=== PATIENT | female | born 1970 ===

== ENCOUNTER 2019-12-21 16:31 | Outpatient (REF) | payer OTHER, SELFPAY | END 2019-12-21 16:32 | disposition home or self-care (01) | LOC: HO.LAB 16:31 | PROVIDERS: Visit Provider Internal Medicine | DX: Z20.828 Contact with and (suspected) exposure to other viral communicable diseases (principal) | CPT/HCPCS: U0003 ==

== ENCOUNTER 2020-01-04 06:55 | Outpatient (REF) | payer OTHER, SELFPAY | END 2020-01-04 06:56 | disposition home or self-care (01) | LOC: HO.LAB 06:55 | PROVIDERS: Visit Provider Internal Medicine | DX: Z20.828 Contact with and (suspected) exposure to other viral communicable diseases (principal) | CPT/HCPCS: C9803; U0003 ==

== ENCOUNTER 2020-01-16 09:13 | Outpatient (REF) | payer OTHER, SELFPAY | END 2020-01-16 09:14 | disposition home or self-care (01) | LOC: HO.LAB 09:13 | PROVIDERS: Visit Provider Internal Medicine | DX: Z20.828 Contact with and (suspected) exposure to other viral communicable diseases (principal) | CPT/HCPCS: C9803; U0003 ==

== ENCOUNTER 2020-02-06 10:03 | Outpatient (REF) | payer OTHER, SELFPAY ==
--- NOTE | 2020-02-06 10:09 | MM_ITS ---
EXAMINATION: MM SCREENING DIGITAL BREAST TOMOSYNTHESIS, BILATERAL CLINICAL INFORMATION: Screening. Asymptomatic. The lifetime risk of breast cancer based on the Tyrer-Cuzick Model is 18%. COMPARISON: Mammography: 01/31/2019, 12/18/2017, 12/17/2016 TECHNIQUE: Digital breast tomosynthesis is performed in both the craniocaudal and mediolateral oblique views along with computer-aided detection (CAD). Synthesized 2D images are generated from the tomosynthesis. FINDINGS: The breasts are heterogeneously dense, which may obscure small masses (ACR BI-RADS breast composition Category c). There is no developing density or interval mass or architectural abnormality. Parenchymal pattern is similar to prior studies. The axilla and skin contours are unremarkable. No abnormal right breast calcifications. There are increased calcifications posterior outer left breast, likely scattered on the MLO view without focal grouping. Patient will be recalled for additional magnification views left breast to fully characterize. MM/MM tomosynthesis screening BI IMPRESSION: 1. Left: Increased calcifications posterior outer breast, likely scattered on MLO view. 2. Right: No mammographic evidence of malignancy. ASSESSMENT: BI-RADS 0: Incomplete - Need Additional Imaging Evaluation RECOMMENDATION: 1. Additional views of the left breast (magnification posterior outer CC, magnification ML upper and lower). 2. Radiology department staff will contact the patient for additional imaging. This patient's information was entered into a reminder system with a target due date for their next mammogram.
== END 2020-02-06 10:04 | disposition home or self-care (01) ==
LOC: HO.MAMMO 10:03
PROVIDERS: PCP Internal Medicine; Visit Provider Internal Medicine
DX: Z12.31 Encounter for screening mammogram for malignant neoplasm of breast (principal)
CPT/HCPCS: 77063; 77067

== ENCOUNTER 2020-02-26 14:48 | Outpatient (REF) | payer OTHER, SELFPAY ==
--- NOTE | 2020-02-26 14:53 | MM_ITS ---
EXAMINATION: MM DIAGNOSTIC DIGITAL MAMMOGRAPHY, LEFT CLINICAL INFORMATION: Recall from screening for increased calcifications posterior outer left breast possibly scattered on MLO view. TC score 18%. COMPARISON: Mammography: 02/06/2020, 01/31/2019, 12/18/2017 (diagnostic), 12/17/2016 (diagnostic). TECHNIQUE: Digital mammography is performed in the following views: Magnification CC, magnification ML x2, magnification MLO. FINDINGS: The breasts are heterogeneously dense, which may obscure small masses (ACR BI-RADS breast composition Category c). Additional magnification views show some scattered round calcifications upper outer left breast. There are a additional calcifications on current study compared with prior diagnostic exam 2017 and 2016. These are round and grouped on CC view and less in number somewhat scattered on lateral views. Calcifications are considered probably benign and will be reassessed again in 6 months to include magnification views. Results are discussed with the patient at time of visit. MM/MM added views LT IMPRESSION: Probable benign calcifications posterior upper outer left breast. ASSESSMENT: BI-RADS 3: Probably Benign RECOMMENDATION: Diagnostic left mammography in 6 months. This patient's information was entered into a reminder system with a target due date for their next mammogram.
== END 2020-02-26 14:49 | disposition home or self-care (01) ==
LOC: HO.MAMMO 14:48
PROVIDERS: PCP Internal Medicine; Visit Provider Internal Medicine
DX: R92.1 Mammographic calcification found on diagnostic imaging of breast (principal)
CPT/HCPCS: 77065

== ENCOUNTER 2020-08-26 13:51 | Outpatient (REF) | payer OTHER, SELFPAY ==
--- NOTE | ~2020-08-26 | MM_ITS ---
EXAMINATION: MM DIAGNOSTIC DIGITAL BREAST TOMOSYNTHESIS, LEFT TARGETED LEFT BREAST ULTRASOUND CLINICAL INFORMATION: Six-month follow-up left breast calcifications. The lifetime risk of breast cancer based on the Tyrer-Cuzick Model is 17.9%. COMPARISON: Mammography: 02/26/2020 and studies dating back to 10/12/2013. TECHNIQUE: Digital breast tomosynthesis is performed in both the craniocaudal and mediolateral oblique views along with computer-aided detection (CAD). Synthesized 2D images are generated from the tomosynthesis. Additional spot magnification views of the left breast in craniocaudal and 90 degree mediolateral views performed. Targeted left breast ultrasound upper outer aspect. FINDINGS: The breasts are heterogeneously dense, which may obscure small masses (ACR BI-RADS breast composition Category c). The few grouping of calcifications within the upper outer aspect of the left breast appear stable with study of 02/26/2020. Within the upper outer aspect of the left breast approximately 11 cm from the nipple there is a partially circumscribed lobular density with a few calcifications measuring 1.1 x 1.5 cm in size which I cannot say has been present before study of 02/26/2020. Targeted left breast ultrasound to the upper outer aspect demonstrated a hypoechoic partially circumscribed lesion with increased through sound transmission in most areas but with question small region of shadowing which may be related to interface or some associated soft tissue density. There are septations seen within this structure and question small amount of soft tissue density. No internal vascularity was identified. The lesion measures approximately 1.1 x 0.8 x 0.7 cm in size and on some images has a triangular appearance. Attempt at ultrasound-guided aspiration is recommended and if the lesion does not totally aspirate, would perform core biopsy at that time. Results are discussed with the patient at time of visit. [facility] patient navigator will call referring provider's office with the above recommendation. MM/MM tomosynthesis diagnostic LT IMPRESSION: Left breast partially cystic lesion as described for which attempt at ultrasound-guided aspiration is recommended and if it does not totally aspirate, then biopsy could be performed at that time. ASSESSMENT: BI-RADS 4: Suspicious (subcategory 4A: Low suspicion for malignancy) RECOMMENDATION: Ultrasound-guided aspiration/biopsy left breast.
--- NOTE | ~2020-08-26 | US_ITS ---
EXAMINATION: US DIAGNOSTIC ULTRASOUND BREAST, LEFT CLINICAL INFORMATION: Left breast density. COMPARISON: Mammography of same day and studies dating back to October 12, 2013. TECHNIQUE: Ultrasound of the breast is performed with real-time leon scale imaging and color Doppler. FINDINGS: Targeted left breast ultrasound to the upper outer aspect demonstrated a hypoechoic partially circumscribed lesion with increased through sound transmission in most areas but with question small region of shadowing which may be related to interface or some associated soft tissue density. There are septations seen within this structure and question small amount of soft tissue density. No internal vascularity was identified. The lesion measures approximately 1.1 x 0.8 x 0.7 cm in size and on some images has a triangular appearance. Attempt at ultrasound guided aspiration is recommended and if the lesion does not totally aspirate would perform core biopsy at that time. Results are discussed with the patient at time of visit. [facility] patient navigator will call referring provider's office with the above recommendation. US/US breast LT limited IMPRESSION: Left breast partially cystic lesion as described for which attempt at ultrasound-guided aspiration is recommended and if it does not totally aspirate then biopsy could be performed at that time. ASSESSMENT: BI-RADS 4: Suspicious (subcategory 4A: Low suspicion for malignancy) RECOMMENDATION: Ultrasound-guided aspiration/biopsy left breast
== END 2020-08-26 13:52 | disposition home or self-care (01) ==
LOC: HO.MAMMO 13:51
PROVIDERS: Visit Provider Internal Medicine
DX: R92.1 Mammographic calcification found on diagnostic imaging of breast (principal)
CPT/HCPCS: 76642; 77061; 77065

== ENCOUNTER 2020-09-20 09:45 | Outpatient (REF) | payer OTHER, SELFPAY ==
--- NOTE | ~2020-09-20 | US_ITS ---
EXAMINATION: US ULTRASOUND-GUIDED CYST ASPIRATION BREAST, LEFT CLINICAL INFORMATION: Probable cyst upper outer left breast on recent ultrasound. Request confirmation with aspiration. If lesion will not aspirate, then core biopsy. Recent mammography performed for follow-up of probable benign calcifications upper outer left breast. TC score 18%. COMPARISON: Targeted left breast ultrasound 08/26/2020. Mammography 08/26/2020, 08/25/2020, 02/06/2020 (BI-RADS 0), 01/31/2019, 12/18/2017, 12/17/2016. FINDINGS: Proper informed consent is obtained from the patient after discussion of the procedure, potential risks and complications, and alternatives. Patient was given an opportunity for questions. The patient appeared to understand. The patient consented to the procedure and signed the consent form. LOCATION: 2:00 position 9 cm from nipple GUIDANCE: Ultrasound-guided; aseptic technique. LESION: Cyst with fine avascular internal septation 1.1 cm. APPROACH: Oblique caudal cranial ANESTHESIA: 6 mL 1% lidocaine NEEDLE: 21-gauge straight needle. ASPIRATION: The cyst rapidly resolved on puncture. No residual solid component. Results and management plans discussed with patient following procedure. Patient has diagnostic mammography due in 6 months at time of annual mammography to include magnification views of the probable benign left breast calcifications. US/US breast cyst asp LT IMPRESSION: -Simple cyst upper outer left breast resolved on puncture. -Note: There are probably benign calcifications left breast which will be reassessed at time of annual exam, due in 6 months. These are responsible for the BI-RADS 3 assessment below. ASSESSMENT: BI-RADS 3: Probably Benign RECOMMENDATION: Magnification views left breast at time of annual bilateral mammography, due in 6 months. This patient's information was entered into a reminder system with a target due date for their next mammogram.
== END 2020-09-20 09:46 | disposition home or self-care (01) ==
LOC: HO.MAMMO 09:45
PROVIDERS: Visit Provider Surgery
DX: R92.8 Other abnormal and inconclusive findings on diagnostic imaging of breast (principal); N63.20 Unspecified lump in the left breast, unspecified quadrant
CPT/HCPCS: 19000; 19083; 99202

== ENCOUNTER → 2020-09-23 09:32 | Outpatient (BNVA) | payer OTHER, SELFPAY | PROVIDERS: PCP Internal Medicine; Referring Provider Internal Medicine; Visit Provider Surgery | DX: N63.20 Unspecified lump in the left breast, unspecified quadrant (principal) | CPT/HCPCS: 99212 ==

== ENCOUNTER 2020-10-03 10:28 | Outpatient (REF) | payer OTHER, SELFPAY ==
--- NOTE | ~2020-10-03 | US_ITS ---
EXAMINATION: US RETROPERITONEAL LIMITED (RENAL ONLY) CLINICAL INFORMATION: Calculus kidney. COMPARISON: Ultrasound renals only 08/31/2019 and 08/26/2018. CT abdomen pelvis 09/30/2015. X-ray KUB 12/23/2013. TECHNIQUE: Real-time imaging of the kidneys. FINDINGS: RIGHT KIDNEY: 10.9 x 4.2 x 6.1 cm (SAG x AP x TRV). The kidney is normal in size, contour, and echogenicity. Renal cortical thickness is normal. No calculi or focal parenchymal lesions. No hydronephrosis. LEFT KIDNEY: 11.5 x 5.4 x 4.9 cm (SAG x AP x TRV). The kidney is normal in size, contour, and echogenicity. Renal cortical thickness is normal. No focal parenchymal lesions. Mild left-sided hydronephrosis, new when compared to the prior examination. Left lower pole renal stone measuring 0.4 cm, similar when compared to the prior examination. US/US renal BI IMPRESSION: Mild left-sided hydronephrosis, new when compared to the prior examination. Redemonstration of a left lower pole 0.4 cm renal stone. No right-sided hydronephrosis or nephrolithiasis.
== END 2020-10-03 10:29 | disposition home or self-care (01) ==
LOC: HO.US 10:28
PROVIDERS: Visit Provider Urology
DX: N20.0 Calculus of kidney (principal)
CPT/HCPCS: 76775

== ENCOUNTER → 2020-10-26 13:17 | Outpatient (BNVA) | payer OTHER, SELFPAY | PROVIDERS: PCP Internal Medicine; Referring Provider Internal Medicine; Visit Provider Nurse Practitioner Family | DX: K21.9 Gastro-esophageal reflux disease without esophagitis (principal); E55.9 Vitamin D deficiency, unspecified; F41.8 Other specified anxiety disorders; Z80.0 Family history of malignant neoplasm of digestive organs; J30.2 Other seasonal allergic rhinitis | CPT/HCPCS: 99202 ==

== ENCOUNTER 2020-10-27 10:37 | Outpatient (REF) | payer OTHER, SELFPAY ==
[2020-10-27 11:17] LABS: Hematocrit 33.7 % (37-47); Hemoglobin 11.1 g/dl (12.0-16.0); Mean Corpuscular HGB Conc 32.9 g/dl (31.0-35.0); Mean Corpuscular Hemoglobin 30.2 pg (27.0-33.0); Mean Corpuscular Volume 91.6 fL (80-98); Mean Platelet Volume 9.3 fL (9.4-12.3); Platelet Count 254 X10*3/uL (160-400); Red Blood Count 3.68 X10*6/uL (4.20-5.50); Red Cell Distribution Width 13.2 % (11.0-16.0); White Blood Count 5.6 X10*3/uL (4.8-10.8)
[2020-10-27 11:55] LABS: Alanine Aminotransferase 19 U/L (0-31); Alkaline Phosphatase 84 U/L (39-117); Anion Gap 11 (12-20); Aspartate Amino Transferase 20 U/L (5-31); Bilirubin Total 0.6 mg/dL (0.0-1.0); Blood Urea Nitrogen 13 mg/dL (9-16); Calcium 9.4 mg/dL (8.4-10.2); Carbon Dioxide 25 mmol/L (22-29); Chloride 108 mmol/L (96-108); Estimated Glomerular Filt Rate > 60; Glucose Random 93 mg/dL (60-115); Potassium 4.6 mmol/L (3.3-5.1); Sodium 139 mmol/L (135-145); Total Protein 6.9 g/dL (6.5-8.0)
== END 2020-10-27 10:38 | disposition home or self-care (01) ==
LOC: HO.LAB 10:37
PROVIDERS: PCP Internal Medicine; Visit Provider Nurse Practitioner Family
DX: Z12.11 Encounter for screening for malignant neoplasm of colon (principal)
CPT/HCPCS: 36415; 80053; 85027

== ENCOUNTER → 2020-12-02 11:24 | Outpatient (BNVA) | payer OTHER, SELFPAY | DX: N20.0 Calculus of kidney (principal) | CPT/HCPCS: 99212 ==

== ENCOUNTER 2021-01-17 10:13 | Day surgery (SDC) | payer OTHER, SELFPAY ==
[2020-11-23 12:04] VITALS: BMI 32.8
[2021-01-10 12:33] VITALS: BMI 32.8
--- NOTE | 2021-01-16 13:51 | HO.ANESPROP2 ---
Documented by User: Rocio Aguilar NP 01/16/21 13:58 HPI - Anesthesia Eval Consult details Narrative: 50yo F for Colonoscopy PMFSH Active Problems Active Problems: All Active Problems (Updated 11/21/20 @ 12:38 by Kelsi Perdomo MD) CHASE (generalized anxiety disorder) (Acute) Mild recurrent major depression (Acute) Abnormal ultrasound of breast (Acute) Nephrolithiasis (Acute) Left breast mass (Acute) Family history of colon cancer (Acute) Seasonal allergic rhinitis due to pollen (Acute) Hypovitaminosis D (Acute) GERD (gastroesophageal reflux disease) (Acute) Past Medical History Medical History Depression with anxiety Family history of colon cancer CHASE (generalized anxiety disorder) GERD (gastroesophageal reflux disease) Hypovitaminosis D Left breast mass Mild recurrent major depression Seasonal allergic rhinitis due to pollen Family History Family History Father Hypercholesteremia Mother Hypertension Maternal Grandmother Hypertension CAD (coronary artery disease) Maternal Grandfather No problems noted. Maternal Aunt Breast cancer Diabetes Son No problems noted. Paternal Grandfather No problems noted. Paternal Grandmother No problems noted. Surgical History Surgical History H/O cervical polypectomy H/O lithotripsy History of esophagogastroduodenoscopy (EGD) Social History Social History Housing: Apartment Alcohol intake: never Patient Tobacco Use Status: Never used Tobacco e-Cigarette/Vaping Use: Never Used Second Hand Smoke Exposure: No Use of substances other than those prescribed or required for medical reasons: No Are you DNR?: No Advance Directives: No Advance Directives Information Provided: Yes Patient : No (UCG pending) service: No Current occupational status: unemployed Current occupational exposures/hazards: No Meds Allergies Allergy/AdvReac Type Severity Reaction Status Date / Time No Known Allergies Allergy Verified 12/02/20 12:02 [No Known Allergies*] Home Medications Medication Instructions Recorded Confirmed Last Taken Type ergocalciferol (vitamin D2) 1,250 1,250 mcg PO QWEEK 11/17/19 12/02/20 Unknown History mcg (50,000 unit) capsule fluticasone propionate 50 1 spray INTRANASAL DAILY 11/17/19 12/02/20 Unknown History mcg/actuation nasal spray,suspension (Flonase Allergy Relief) Exam Exam Date and Time: January 16, 2021 1351 Height,Weight and Vital Signs: Height 5 ft 4 in Weight 86.636 kg Pertinent Lab Results Pertinent Lab Results: Laboratory Tests 10/27/20 10/27/20 10:50 10:50 WBC 5.6 Hgb 11.1 L Hct 33.7 L Plt Count 254 Sodium 139 Potassium 4.6 Chloride 108 Carbon Dioxide 25 BUN 13 Creatinine 0.64 Assessment and Plan Assessment Anesthesia Assessment: Chart Reviewed Documented by User: Maria Cavazos MD 01/17/21 11:57 [facility] Past Medical History Medical History Depression with anxiety Family history of colon cancer CHASE (generalized anxiety disorder) GERD (gastroesophageal reflux disease) Hypovitaminosis D Left breast mass Mild recurrent major depression Seasonal allergic rhinitis due to pollen Family History Family History Father Hypercholesteremia Mother Hypertension Maternal Grandmother Hypertension CAD (coronary artery disease) Maternal Grandfather No problems noted. Maternal Aunt Breast cancer Diabetes Son No problems noted. Paternal Grandfather No problems noted. Paternal Grandmother No problems noted. Family history of problems with anesthesia: No Surgical History Surgical History H/O cervical polypectomy H/O lithotripsy History of esophagogastroduodenoscopy (EGD) History of Problems with Anesthesia: No Social History Social History Housing: Apartment Alcohol intake: never Patient Tobacco Use Status: Never used Tobacco e-Cigarette/Vaping Use: Never Used Second Hand Smoke Exposure: No Use of substances other than those prescribed or required for medical reasons: No Are you DNR?: No Advance Directives: No Advance Directives Information Provided: Yes Patient : No (UCG pending) service: No Current occupational status: unemployed Current occupational exposures/hazards: No Meds Allergies Allergy/AdvReac Type Severity Reaction Status Date / Time No Known Allergies Allergy Verified 12/02/20 12:02 [No Known Allergies*] Home Medications Medication Instructions Recorded Confirmed Last Taken Type ergocalciferol (vitamin D2) 1,250 1,250 mcg PO QWEEK 11/17/19 12/02/20 Unknown History mcg (50,000 unit) capsule fluticasone propionate 50 1 spray INTRANASAL DAILY 11/17/19 12/02/20 Unknown History mcg/actuation nasal spray,suspension (Flonase Allergy Relief) Exam Height,Weight and Vital Signs: Height 5 ft 4 in Weight 86.636 kg Vital Signs Temp Pulse Resp BP Pulse Ox 01/17/21 10:49 97.2 F 72 16 112/65 99 Pertinent Lab Results Pertinent Lab Results: Laboratory Tests 10/27/20 10/27/20 10:50 10:50 WBC 5.6 Hgb 11.1 L Hct 33.7 L Plt Count 254 Sodium 139 Potassium 4.6 Chloride 108 Carbon Dioxide 25 BUN 13 Creatinine 0.64 Lab Results 01/17/21 Range/Units 10:25 Urine Test NEGATIVE (NEGATIVE) Airway Mallampati Class: II TM Dist: >3cm Neck ROM: Full Loose/Missing/Broken Teeth: No Heart: RRR Lungs: CTAB Assessment and Plan Assessment Anesthesia Assessment: Anesthesia Plan Discussed Final Anesthetic Review Family History of Problems with Anesthesia: No History of Problems with Anesthesia: No NPO: Yes ASA Class: II Final Preanesthetic Review: No Changes in Pt Med Stat, Meds/Allgs Chart Reviewed, Consent Obtained/Reviewed and Anes Risks/Benef Reviewed Patient Risk: Low Procedure Risk: Low Assessment/Block/Sedation in SS: Assess/Block/Sedation-SS Anesthetic Plan Anesthetic Plan: MAC: Disposition: Standard PACU
[2021-01-17 10:44] LABS: UPreg QC Valid YES; Urine Pregnancy NEGATIVE (NEGATIVE)
[2021-01-17 10:49] VITALS: BP 112/65; PULSE 72; RESP 16; TEMP 36.2; O2SAT 99; BMI 30.9
--- NOTE | 2021-01-17 11:55 | MHC.SHP ---
Pre-Procedural Eval Section A Date of Service: 01/17/21 The patient is an INPATIENT: No The History & Physical has been completed within 30 days and I have reviewed it.: No Section B Chief Complaint: Screening Details of Present Illness: Colon cancer screening family history of colon cancer Relevant Family History (Specify if Yes): Yes Relevant Social History: None Present Medications: see Short Stay Collaborative assessment Medical History: Significant History (Depression with anxiety Family history of colon cancer GERD (gastroesophageal reflux disease) Hypovitaminosis D Left breast mass Seasonal allergic rhinitis due to pollen) History of Previous Operations: Relevant previous surgery/procedure and date(s) (H/O cervical polypectomy H/O lithotripsy History of esophagogastroduodenoscopy (EGD)) Allergies: Allergies Allergy/AdvReac Type Severity Reaction Status Date / Time No Known Allergies Allergy Verified 12/02/20 12:02 [No Known Allergies*] Review of Systems Sugical H&P ROS: Negative: Constitution, Cardiovascular, Respiratory and Gastrointestinal Exam Surgical H&P Exam: Normal: Heart, Normal: Lungs, Normal: Extremities and Normal: Abdomen Plan Diagnosis/Plan: Unchanged I have reviewed the history and physical and performed a pertinent physical examination on my patient. No changes have occurred unless specified.
--- NOTE | 2021-01-17 12:41 | PM.OP ---
Brief Operative Note Date of Service: 01/17/21 Pre-op diagnosis: Colon cancer screening, family history of colon cancer (brother at age 41) Post-op diagnosis: other (Colon polyp, diverticulosis) Procedure: COLONOSCOPY TILL CECUM WITH SNARE POLYPECTOMY Consent: Indications for the procedure and potential complications of bleeding, perforation, reaction to medications and missed diagnosis were discussed with the patient and informed consent was obtained. Instrument: Olympus PCF H 190 L variable stiffness pediatric colonoscope Monitoring: Vital signs and clinical assessment, intermittent blood pressure monitoring, continuous EKG monitoring, Pulse oximetry and Carbon Dioxide monitoring were done throughout the procedure. Colon withdrawl time was 16 minutes. Procedure: The patient was placed in the left lateral decubitis position and pre-procedure medications were administered. After a digital rectal examination of the ano-rectum, the video colonoscope was inserted into the rectum and advanced through the colon to the cecum. The colonoscope was slowly withdrawn in a retrograde panoramic fashion and the colon mucosa was carefully examined including a retroflexed view of the rectum. Findings and interventions are described below. Procedure Difficulty: Without difficulty Findings: Terminal Ileum: Not evaluated Cecum: Normal Ascending Colon: Normal Transverse Colon: Normal Descending Colon: Normal Sigmoid Colon: A 10-12 mm sessile polyp removed with a cold snare. Moderate diverticulosis Rectum: Normal Ano-rectum: Normal Colon preparation: Good in the transverse and left colon and fair in the cecum and proximal AC with undigested vegetable matter which could not be suctioned. Impression and Post Procedure Diagnosis: Colonoscopy Findings: One moderate polyp removed Moderate diverticulosis seen in the sigmoid colon Plan: Await pathology results Patient has an appointment on 01/30/21 in the [facility] with Nasima Michel FNP-BC . Repeat Colonoscopy interval based on path results - in 3 years if polyps are adenomatous and due to fair prep in the right colon. Colon polyps and diverticulosis handouts were given in the discharge area Surgeon: Nadia Eduardo MD Anesthesia: MAC (Milagros Brenner CRNA) Was an Clinical Scientist used for this Procedure?: Yes Clinical Scientist: Lady Waters Estimated blood loss (mL): 0 Pathology: other ( A. sigmoid polyp) Condition: stable Disposition: PACU
[2021-01-17 12:45] VITALS: BP 88/49; PULSE 73; RESP 16; TEMP 36.7; O2SAT 98
--- NOTE | 2021-01-17 12:45 | P.OP_ITS ---
Operative Note Operative Note Date of Service: 01/17/21 Narrative: Pre-op diagnosis:?Colon cancer screening, family history of colon cancer (brother at age 41) Post-op diagnosis:?other (Colon polyp, diverticulosis) Procedure:? COLONOSCOPY TILL CECUM WITH SNARE POLYPECTOMY Consent: Indications for the procedure and potential complications of bleeding, perforation, reaction to medications and missed diagnosis were discussed with the patient and informed consent was obtained. Instrument: Olympus PCF H 190 L variable stiffness pediatric colonoscope Monitoring: Vital signs and clinical assessment, intermittent blood pressure monitoring, continuous EKG monitoring, Pulse oximetry and Carbon Dioxide monitoring were done throughout the procedure. Colon withdrawl time was 16 minutes. Procedure: The patient was placed in the left lateral decubitis position and pre-procedure medications were administered. After a digital rectal examination of the ano-rectum, the video colonoscope was inserted into the rectum and advanced through the colon to the cecum. The colonoscope was slowly withdrawn in a retrograde panoramic fashion and the colon mucosa was carefully examined including a retroflexed view of the rectum. Findings and interventions are described below. Procedure Difficulty: Without difficulty Findings: Terminal Ileum: Not evaluated Cecum:? Normal Ascending Colon:? Normal Transverse Colon:? Normal Descending Colon:? Normal Sigmoid Colon:? A 10-12 mm sessile polyp removed with a cold snare. Moderate diverticulosis Rectum:? Normal Ano-rectum:? Normal Colon preparation:? Good in the transverse and left colon and fair in the cecum and proximal AC with undigested vegetable matter which could not be suctioned. Impression and Post Procedure Diagnosis: Colonoscopy Findings: One moderate polyp removed Moderate diverticulosis seen in the sigmoid colon Plan: Await pathology results Patient has an appointment on 01/30/21 in the GI Clinic with ? Nasima Michel FNP-MYLA . Repeat Colonoscopy interval based on path results - in 3 years if polyps are adenomatous and due to fair prep in the right colon. Colon polyps and diverticulosis handouts were given in the discharge area Surgeon:?Nadia Eduardo MD Anesthesia:?MAC (Milagros Brenner CRNA) Was an Boilermaker Loftsman used for this Procedure?:?Yes Boilermaker Loftsman:?Lady Waters Estimated blood loss (mL):?0 Pathology:?other ( A. sigmoid polyp) Condition:?stable Disposition:?PACU
[2021-01-17 12:50] VITALS: BP 96/59; PULSE 65; RESP 16; O2SAT 98
[2021-01-17 13:00] VITALS: BP 93/69; PULSE 59; RESP 16; O2SAT 99
[2021-01-17 13:13] VITALS: BP 107/70; PULSE 79; RESP 16; TEMP 36.1; O2SAT 99
== END 2021-01-17 13:48 | disposition home or self-care (01) ==
PROVIDERS: Nurse Practitioner; PCP Internal Medicine; Visit Provider Internal Medicine Gastroenterology
PROC: 0DJD8ZZ Inspection of Lower Intestinal Tract, Via Natural or Artificial Opening Endoscopic (ICD-10-PCS; CPT 45378; principal; 2021-01-17 11:40)
DX: Z12.11 Encounter for screening for malignant neoplasm of colon (principal); Z80.0 Family history of malignant neoplasm of digestive organs; D12.5 Benign neoplasm of sigmoid colon; K57.30 Diverticulosis of large intestine without perforation or abscess without bleeding; K21.9 Gastro-esophageal reflux disease without esophagitis; J30.2 Other seasonal allergic rhinitis; E55.9 Vitamin D deficiency, unspecified; Z79.51 Long term (current) use of inhaled steroids; Z79.899 Other long term (current) drug therapy
CPT/HCPCS: 45385; 81025; 88305

== ENCOUNTER → 2021-01-30 09:23 | Outpatient (BNVA) | payer OTHER, SELFPAY | PROVIDERS: Referring Provider Internal Medicine; Visit Provider Nurse Practitioner Family | DX: K21.9 Gastro-esophageal reflux disease without esophagitis (principal); K57.90 Diverticulosis of intestine, part unspecified, without perforation or abscess without bleeding; D36.9 Benign neoplasm, unspecified site; Z98.890 Other specified postprocedural states | CPT/HCPCS: 99212 ==

== ENCOUNTER 2021-03-24 10:30 | Outpatient (REF) | payer OTHER, SELFPAY ==
--- NOTE | ~2021-03-24 | MM_ITS ---
EXAMINATION: MM DIAGNOSTIC DIGITAL BREAST TOMOSYNTHESIS, BILATERAL CLINICAL INFORMATION: Screening right study with follow-up of left breast calcifications. The lifetime risk of breast cancer based on the Tyrer-Cuzick Model is 8.3%. COMPARISON: Mammography: September 20, 2020 and studies dating back to November 15, 2015 TECHNIQUE: Digital breast tomosynthesis is performed in both the craniocaudal and mediolateral oblique views along with computer-aided detection (CAD). Synthesized 2D images are generated from the tomosynthesis. Spot magnification views of the left breast in craniocaudal and 90 degree mediolateral views performed. FINDINGS: The breasts are heterogeneously dense, which may obscure small masses (ACR BI-RADS breast composition Category c). There is a stable parenchymal pattern within the right breast with no new abnormal dominant masses or suspicious grouping of microcalcifications. Spot magnification views demonstrate stability of the calcifications about the upper outer aspect. No new abnormal dominant mass identified. One year follow-up study is recommended. Results are provided to the patient at time of visit by the technologist. MM/MM tomosynthesis diagnostic BI IMPRESSION: There are no significant changes from prior study. ASSESSMENT: BI-RADS 3: Probably Benign RECOMMENDATION: Diagnostic mammography at time of next annual exam, due in 12 months. This patient's information was entered into a reminder system with a target due date for their next mammogram.
== END 2021-03-24 10:31 | disposition home or self-care (01) ==
LOC: HO.MAMMO 10:30
PROVIDERS: Visit Provider Surgery
DX: R92.1 Mammographic calcification found on diagnostic imaging of breast (principal)
CPT/HCPCS: 77062; 77066

== ENCOUNTER 2021-03-31 09:07 | Outpatient (REF) | payer OTHER, SELFPAY ==
[2021-03-31 09:25] LABS: MANUAL DIFF FLAG NO
[2021-03-31 10:11] LABS: Basophils Percent Auto 0.6 % (0-2); Eosinophils Absolute Auto 0.1 X10*3/uL (0.0-0.4); Eosinophils Percent Auto 1.2 % (0-4); Hematocrit 36.1 % (37.0-47.0); Hemoglobin 11.5 g/dl (12.0-16.0); Imm Gran Abs Auto 0.01 X10*3/uL (0.00-0.03); Imm Gran Pct Auto 0.2 % (0.0-0.4); Lymphocytes Absolute Auto 1.9 X10*3/uL (1.2-4.9); Lymphocytes Percent Auto 37.8 % (20-40); Mean Corpuscular HGB Conc 31.9 g/dl (31.0-35.0); Mean Corpuscular Hemoglobin 29.4 pg (27.0-33.0); Mean Corpuscular Volume 92.3 fL (80.0-98.0); Mean Platelet Volume 9.2 fL (9.4-12.3); Monocytes Absolute Auto 0.4 X10*3/uL (0.1-1.2); Neutrophils Absolute Auto 2.7 x10*3/uL (2.0-8.3); Neutrophils Percent Auto 53.2 % (45-73); Platelet Count 264 X10*3/uL (160-400); Red Blood Count 3.91 X10*6/uL (4.20-5.50); Red Cell Distribution Width 13.3 % (11.0-16.0); White Blood Count 5.1 X10*3/uL (4.8-10.8)
[2021-03-31 10:25] LABS: Alanine Aminotransferase 17 U/L (0-31); Albumin Level 4.1 g/dL (3.5-5.0); Alkaline Phosphatase 73 U/L (39-117); Anion Gap 9 (12-20); Aspartate Amino Transferase 20 U/L (5-31); Bilirubin Total 0.5 mg/dL (0.0-1.0); Blood Urea Nitrogen 12 mg/dL (9-16); Calcium 9.1 mg/dL (8.4-10.2); Carbon Dioxide 27 mmol/L (22-29); Chloride 108 mmol/L (96-108); Cholesterol 176 mg/dL; Estimated Glomerular Filt Rate > 60; Glucose Fasting 96 mg/dL (60-99); HDL Cholesterol 32 mg/dL; LDL Cholesterol Calculated 101 mg/dl; Potassium 4.2 mmol/L (3.3-5.1); Sodium 140 mmol/L (135-145); Total Protein 7.1 g/dL (6.5-8.0); Triglycerides 216 mg/dL
[2021-04-05 17:41] LABS: Vitamin D 25-OH, D2 <4 ng/mL; Vitamin D 25-OH, D3 24 ng/mL; Vitamin D 25-OH, Total 24 ng/mL (30-100)
== END 2021-03-31 09:08 | disposition home or self-care (01) ==
LOC: HO.LAB 09:07
PROVIDERS: PCP Internal Medicine; Visit Provider Internal Medicine
DX: D64.9 Anemia, unspecified (principal); N20.0 Calculus of kidney; E78.5 Hyperlipidemia, unspecified; E55.9 Vitamin D deficiency, unspecified
CPT/HCPCS: 36415; 80053; 80061; 82306; 85025

== ENCOUNTER 2021-04-19 09:46 | Outpatient (REF) | payer OTHER, SELFPAY ==
--- NOTE | ~2021-04-19 | CT_ITS ---
EXAMINATION: CT ABDOMEN AND PELVIS WITHOUT CONTRAST CLINICAL INFORMATION: Renal stone COMPARISON: Previous CT of the abdomen and pelvis September 2015 and previous renal ultrasounds September 2020 TECHNIQUE: Multidetector volumetric imaging was performed from the superior aspect of the liver through the pubic symphysis. Sagittal and coronal reformatted images were obtained on the technologist's workstation. This CT examination was performed using dose optimization techniques as appropriate, variously including the following: *Automated exposure control *Adjustment of mA and/or kV according to patient size (this includes techniques or standardized protocols for targeted exams where dose is matched to indication/reason for exam; i.e. extremities or head) *Use of iterative reconstruction technique DLP: 507 mGy-cm FINDINGS: LUNG BASES: The visualized lung bases are unremarkable. LIVER, GALLBLADDER, AND BILIARY TREE: The liver is normal in size, shape, and attenuation. No focal hepatic lesion or biliary ductal dilatation is present. The gallbladder is unremarkable with no evidence of radiopaque gallstones, gallbladder wall thickening, or obvious pericholecystic inflammatory changes. PANCREAS: Unremarkable. SPLEEN: Unremarkable. ADRENAL GLANDS: Unremarkable. KIDNEYS AND URETERS: There is a small 1 to 2 mm nonobstructing stone in the lower pole of the left kidney. No other stone is seen. BLADDER: Not optimally distended. GASTROINTESTINAL TRACT: The small and large bowel are unremarkable. The appendix is unremarkable. ABDOMINAL WALL: No significant hernia is appreciated. LYMPH NODES: Normal. VASCULAR: Unremarkable. PELVIC VISCERA: Unremarkable. OSSEOUS STRUCTURES: Unremarkable. CT/CT abdomen pelvis wo con IMPRESSION: Small nonobstructing left lower pole renal stone. Fleischner guidelines were followed.
== END 2021-04-19 09:47 | disposition home or self-care (01) ==
LOC: HO.CT 09:46
DX: N20.0 Calculus of kidney (principal)
CPT/HCPCS: 74176

== ENCOUNTER → 2021-05-11 10:37 | Outpatient (BNVA) | payer OTHER, SELFPAY | PROVIDERS: PCP Internal Medicine; Referring Provider Internal Medicine; Visit Provider Surgery | DX: R92.8 Other abnormal and inconclusive findings on diagnostic imaging of breast (principal); N63.20 Unspecified lump in the left breast, unspecified quadrant | CPT/HCPCS: 99212 ==

== ENCOUNTER → 2021-06-02 09:27 | Outpatient (BNVA) | payer OTHER, SELFPAY | PROVIDERS: PCP Internal Medicine | DX: N20.0 Calculus of kidney (principal) | CPT/HCPCS: 99212 ==

== ENCOUNTER → 2021-07-31 09:28 | Outpatient (BNVA) | payer OTHER, SELFPAY | PROVIDERS: PCP Internal Medicine; Visit Provider Nurse Practitioner Family | DX: K21.9 Gastro-esophageal reflux disease without esophagitis (principal); K59.01 Slow transit constipation | CPT/HCPCS: 99212 ==

== ENCOUNTER 2021-11-23 10:31 | Outpatient (REF) | payer OTHER, SELFPAY ==
--- NOTE | ~2021-11-23 | US_ITS ---
EXAMINATION: US RETROPERITONEAL LIMITED (RENAL ONLY) CLINICAL INFORMATION: Calculus of kidney. COMPARISON: CT abdomen and pelvis 04/19/2021. Renal ultrasound 10/03/2020 and 08/31/2019. X-ray KUB 12/23/2013. TECHNIQUE: Real-time imaging of the kidneys. FINDINGS: RIGHT KIDNEY: 10.0 x 4.7 x 4.6 cm (SAG x AP x TRV). The kidney is normal in size, contour, and echogenicity. Renal cortical thickness is normal. No calculi or focal parenchymal lesions. No hydronephrosis. LEFT KIDNEY: 11.9 x 5.3 x 5.2 cm (SAG x AP x TRV). The kidney is normal in size, contour, and echogenicity. Renal cortical thickness is normal. No focal parenchymal lesions. The echogenic stone in the midpole measuring 0.2 x 0.1 x 0.2 cm and lower pole measuring 0.2 x 0.3 x 0.2 cm. There is mild hydronephrosis US/US renal BI IMPRESSION: Two small echogenic stone in the midpole and lower pole left kidney with mild hydronephrosis. Only a solitary echogenic stone was seen on previous CT abdomen and ultrasound. Unremarkable right kidney.
== END 2021-11-23 10:32 | disposition home or self-care (01) ==
LOC: HO.US 10:31
DX: N20.0 Calculus of kidney (principal)
CPT/HCPCS: 76775

== ENCOUNTER 2022-02-26 09:15 | Outpatient (REF) | payer OTHER, SELFPAY ==
[2022-02-26 11:16] LABS: Alanine Aminotransferase 22 U/L (0-31); Alkaline Phosphatase 97 U/L (39-117); Anion Gap 11 (12-20); Aspartate Amino Transferase 19 U/L (5-31); Bilirubin Total 0.4 mg/dL (0.0-1.0); Blood Urea Nitrogen 14 mg/dL (9-16); Calcium 9.1 mg/dL (8.4-10.2); Carbon Dioxide 25 mmol/L (22-29); Chloride 108 mmol/L (96-108); Cholesterol 155 mg/dL; Estimated Glomerular Filt Rate > 60; Glucose Fasting 91 mg/dL (60-99); HDL Cholesterol 29 mg/dL; Potassium 4.2 mmol/L (3.3-5.1); Sodium 140 mmol/L (135-145); Total Protein 7.3 g/dL (6.5-8.0); Triglycerides 450 mg/dL
[2022-02-26 12:02] LABS: Vitamin D 25-OH Total 20.1 ng/mL (>30)
== END 2022-02-26 09:16 | disposition home or self-care (01) ==
LOC: HO.LAB 09:15
PROVIDERS: PCP Internal Medicine; Visit Provider Internal Medicine
DX: E55.9 Vitamin D deficiency, unspecified (principal); E78.5 Hyperlipidemia, unspecified; K21.9 Gastro-esophageal reflux disease without esophagitis
CPT/HCPCS: 36415; 80053; 80061; 82306

== ENCOUNTER 2022-03-05 14:05 | Emergency (ER) | payer OTHER, SELFPAY ==
--- NOTE | ~2022-03-05 | CT_ITS ---
EXAMINATION: CT OF THE HEAD AND CERVICAL SPINE WITHOUT CONTRAST CLINICAL INFORMATION: Right posterior neck pain. Dizziness for 3 days COMPARISON: None. TECHNIQUE: Contiguous axial imaging was performed from the vertex to the thoracic inlet, through the head and cervical spine, without intravenous administration of contrast. Coronal and sagittal reformatted images through the cervical spine were obtained on the technologists workstation. Total exam dose-length product: 665+551 mGy-cm This CT examination was performed using dose optimization techniques as appropriate, variously including the following: *Automated exposure control *Adjustment of mA and/or kV according to patient size (this includes techniques or standardized protocols for targeted exams where dose is matched to indication/reason for exam; i.e. extremities or head) *Use of iterative reconstruction technique FINDINGS: Head: No acute intracranial hemorrhage. No extra-axial fluid collection. Gibson-white matter differentiation is preserved without evidence of acute large vessel territory ischemia. Symmetric, concordant ventricles and sulci; no hydrocephalus. No mass effect or midline shift. There is no abnormal attenuation within the brain parenchyma. The osseous structures and soft tissues are normal. No acute sinusitis. Cervical spine: Normal pre-vertebral soft tissues. No fracture seen. Normal alignment. Disk heights are maintained. Thyroid homogeneous with no nodules seen. Lung apices are clear. No cervical lymphadenopathy, mass, or fluid collection. CT/CT head/brain wo IV con IMPRESSION: No acute intracranial pathology. No acute osseous abnormality of the cervical spine.
--- NOTE | ~2022-03-05 | CT_ITS ---
EXAMINATION: CT OF THE HEAD AND CERVICAL SPINE WITHOUT CONTRAST CLINICAL INFORMATION: Right posterior neck pain. Dizziness for 3 days COMPARISON: None. TECHNIQUE: Contiguous axial imaging was performed from the vertex to the thoracic inlet, through the head and cervical spine, without intravenous administration of contrast. Coronal and sagittal reformatted images through the cervical spine were obtained on the technologists workstation. Total exam dose-length product: 665+551 mGy-cm This CT examination was performed using dose optimization techniques as appropriate, variously including the following: *Automated exposure control *Adjustment of mA and/or kV according to patient size (this includes techniques or standardized protocols for targeted exams where dose is matched to indication/reason for exam; i.e. extremities or head) *Use of iterative reconstruction technique FINDINGS: Head: No acute intracranial hemorrhage. No extra-axial fluid collection. Gibson-white matter differentiation is preserved without evidence of acute large vessel territory ischemia. Symmetric, concordant ventricles and sulci; no hydrocephalus. No mass effect or midline shift. There is no abnormal attenuation within the brain parenchyma. The osseous structures and soft tissues are normal. No acute sinusitis. Cervical spine: Normal pre-vertebral soft tissues. No fracture seen. Normal alignment. Disk heights are maintained. Thyroid homogeneous with no nodules seen. Lung apices are clear. No cervical lymphadenopathy, mass, or fluid collection. CT/CT cervical spine wo IV con IMPRESSION: No acute intracranial pathology. No acute osseous abnormality of the cervical spine.
[2022-03-05 14:29] VITALS: BP 144/85; PULSE 83; RESP 16; TEMP 36.3; O2SAT 97; BMI 32.1
--- NOTE | 2022-03-05 14:30 | ECG_ITS ---
Test Reason : DIZZINESS Blood Pressure : / mmHG Vent. Rate : 067 BPM Atrial Rate : 067 BPM P-R Int : 174 ms QRS Dur : 088 ms QT Int : 392 ms P-R-T Axes : 015 054 036 degrees QTc Int : 414 ms Normal sinus rhythm Normal ECG When compared with ECG of 11-OCT-2015 19:01, No significant change was found Referred By: Atif Gates Electronically Signed By:VEE BELL MD
--- OUTSIDE RECORDS SUMMARY | 2022-03-05 15:52 | XMS_ITS | Continuity of Care Document ---
:1970 Author Organization [facility] Address [address] [place] [id number]- Care Team Providers Name Role Phone Levar Perdomo MD, Sara Enriquez Primary Care Physician Encounter [facility] Date(s): 10/29/19 - 10/29/[address] [address]- [facility] Discharge Disposition: A-D/C Home Attending Physician: Walt Nicholson MD Admitting Physician: Walt Nicholson MD Referring Physician: Walt Nicholson MD Allergies, Adverse Reactions, Alerts Substance Reaction Severity Status NKA Active Medications No Known Medications Vital Signs Most recent to oldest 1 2 3 [Reference Range]: Height 163 cm 163 cm (10/29/19 10:49 AM) (10/23/19 3:51 PM) Weight 84.2 kg 82 kg (10/29/19 10:49 AM) (10/23/19 3:51 PM) Oxygen Saturation [94-100 100 % 100 % 100 % %] (10/29/19 1:45 PM) (10/29/19 1:30 PM) (10/29/19 1:1 5 PM) Pulse Rate [55-90 bpm] 74 bpm (10/29/19 10:49 AM) Body Mass Index 31.69 30.86 [18.5-24.99] *>HHI* *>HHI* (10/29/19 10:49 AM) (10/23/19 3:51 PM) Blood Pressure 130/76 mm Hg 122/66 mm Hg 118/71 mm Hg [90-138/55-84 mm Hg] (10/29/19 1:45 PM) (10/29/19 1:30 PM) ( 0 1:15 PM) Respiratory Rate [16-30 16 br/min 13 br/min 15 br/mi n br/min] (10/29/19 1:45 PM) *L* *L* (10/29/19 1:30 PM) (10/29/19 1:15 PM) Temperature [96.8-100.4 98 DegF 97 DegF 97.9 Deg F DegF] (10/29/19 1:45 PM) (10/29/19 1:00 PM) (10/29/19 10: 49 AM) Liters per Minute 4 L/min 4 L/min 4 L/min (10/29/19 1:30 PM) (10/29/19 1:15 PM) (10/29/19 1:0 0 PM) Mode of Delivery (Oxygen) Room air Venti-mask Venti- mask (10/29/19 1:45 PM) (10/29/19 1:30 PM) (10/29/19 1:1 5 PM) Blood pressure sites Arm, right Arm, left (10/29/19 1:00 PM) (10/29/19 10:49 AM) Temperature Route Temporal Temporal Temporal (10/29/19 1:45 PM) (10/29/19 1:00 PM) (10/29/19 10: 49 AM) Dry Weight 84.2 kg 82 kg (10/29/19 10:49 AM) (10/23/19 3:51 PM) Weight Obtained Via Standing scale (10/29/19 10:49 AM) Dry Weight Obtained Via Standing scale Patient/family stated (10/29/19 10:49 AM) (10/23/19 3:51 PM)
[2022-03-05 16:12] LABS: MANUAL DIFF FLAG NO
[2022-03-05 16:15] LABS: Basophils Percent Auto 0.4 % (0-2); Eosinophils Absolute Auto 0.1 X10*3/uL (0.0-0.4); Eosinophils Percent Auto 1.3 % (0-4); Hematocrit 36.3 % (37.0-47.0); Hemoglobin 11.8 g/dl (12.0-16.0); Imm Gran Abs Auto 0.01 X10*3/uL (0.00-0.03); Imm Gran Pct Auto 0.2 % (0.0-0.4); Lymphocytes Absolute Auto 2.1 X10*3/uL (1.2-4.9); Lymphocytes Percent Auto 37.6 % (20-40); Mean Corpuscular HGB Conc 32.5 g/dl (31.0-35.0); Mean Corpuscular Hemoglobin 28.6 pg (27.0-33.0); Mean Corpuscular Volume 87.9 fL (80.0-98.0); Mean Platelet Volume 9.1 fL (9.4-12.3); Monocytes Absolute Auto 0.3 X10*3/uL (0.1-1.2); Neutrophils Percent Auto 54.5 % (45-73); Platelet Count 275 X10*3/uL (160-400); Red Blood Count 4.13 X10*6/uL (4.20-5.50); White Blood Count 5.5 X10*3/uL (4.8-10.8)
[2022-03-05 16:20] LABS: Prothrombin Time 11.5 SEC (10.0-13.1)
[2022-03-05 16:22] LABS: Partial Thromboplastin Time 29.3 SEC (26.0-36.4)
[2022-03-05 16:29] LABS: Alanine Aminotransferase 15 U/L (0-31); Alkaline Phosphatase 111 U/L (39-117); Anion Gap 12 (12-20); Aspartate Amino Transferase 18 U/L (5-31); Bilirubin Total 0.3 mg/dL (0.0-1.0); Blood Urea Nitrogen 11 mg/dL (9-16); Calcium 9.6 mg/dL (8.4-10.2); Carbon Dioxide 26 mmol/L (22-29); Chloride 107 mmol/L (96-108); Creatinine Clr Calc Pharmacy 109.1; Estimated Glomerular Filt Rate > 60; Glucose Random 88 mg/dL (60-115); Potassium 4.2 mmol/L (3.3-5.1); Sodium 141 mmol/L (135-145); Total Protein 7.1 g/dL (6.5-8.0)
[2022-03-05 16:39] LABS: HCG Quantitative < 2 mIU/mL; Troponin-I High Sensitivity < 3.5 ng/L (<3.5-17.0)
--- NOTE | 2022-03-05 16:45 | ED.DIZZY ---
HPI - Dizziness General Chief Complaint: Dizziness Stated Complaint: dizzy r sided neck pain Time Seen by Provider: 03/05/22 16:26 Source: patient Mode of arrival: ambulatory Limitations: no limitations History of Present Illness HPI Narrative: Patient woke up 3 days ago with dizziness especially when turning her neck to the right side feels everything spinning worse with nausea no vomiting no weakness no tremors no headache no fever or chills patient does complain of right side of the neck pain which is going on for long time patient denies tinnitus Related Data Home Medications Medication Instructions Recorded Confirmed fluticasone propionate 50 1 spray intranasal DAILY 11/17/19 02/27/22 mcg/actuation nasal spray,suspension (Flonase Allergy Relief) Previous Rx's Medication Instructions Recorded lorazepam 1 mg tablet 1 mg PO BID PRN anxiety 30 days 08/30/20 #45 tabs omeprazole 20 mg capsule,delayed 20 mg PO DAILY #30 caps 07/31/21 release methylcellulose (laxative) 500 mg 500 mg PO DAILY #90 tabs 11/22/21 tablet (Citrucel) cholecalciferol (vitamin D3) 25 25 mcg PO DAILY 90 days #90 caps 02/27/22 mcg (1,000 unit) capsule docusate sodium 100 mg capsule 100 mg PO BEDTIME #90 caps 02/27/22 fenofibrate 54 mg tablet 54 mg PO DAILY 90 days #90 tabs 02/27/22 meclizine 25 mg tablet 25 mg PO TID PRN dizziness #20 tabs 03/05/22 Allergies Allergy/AdvReac Type Severity Reaction Status Date / Time No Known Allergies Allergy Verified 03/05/22 14:31 [No Known Allergies*] Review of Systems Review of Systems: Yes all other systems are reviewed and are negative PMFSH Past Medical History Medical History Constipation by delayed colonic transit Depression with anxiety Family history of colon cancer CHASE (generalized anxiety disorder) GERD (gastroesophageal reflux disease) Hypovitaminosis D Left breast mass Left sided sciatica Mild recurrent major depression Seasonal allergic rhinitis due to pollen Surgical History H/O cervical polypectomy H/O lithotripsy History of esophagogastroduodenoscopy (EGD) Hx of colonoscopy Family History Family History Father Hypercholesteremia Mother Hypertension Maternal Grandmother Hypertension CAD (coronary artery disease) Maternal Grandfather No problems noted. Maternal Aunt Breast cancer Diabetes Son No problems noted. Paternal Grandfather No problems noted. Paternal Grandmother No problems noted. Social History Social History Housing: Apartment Alcohol intake: never Patient Tobacco Use Status: Never used Tobacco e-Cigarette/Vaping Use: Never Used Second Hand Smoke Exposure: No Advance Directives: No Advance Directives Information Provided: No Patient : No service: No Current occupational status: unemployed Cognitive needs: No Hearing needs: No Vision needs: No Physical Exam Vital Signs: Vital Signs: Last Vital Signs Temp 98.3 F 03/05/22 16:56 Pulse 71 03/05/22 16:56 Resp 20 03/05/22 16:56 BP 137/81 03/05/22 16:56 Pulse Ox 100 03/05/22 16:56 O2 Del Method 03/05/22 16:56 BMI result Body Mass Index 32.1 Appearance: Alert. Oriented X3. No acute distress. Eyes: PERRLA, nystagmus++ ENT: Pharynx normal. Oral Mucosa moist Neck: Normal inspection. Neck supple. CVS: Normal heart rate and rhythm. Pulses normal. Respiratory: No respiratory distress. Equal air entry bilateral, no wheezing/rales/rhonchi Abdomen: Soft and nontender. Bowel sounds are present, no mass palpable, no CVA tenderness Skin: Skin warm and dry. Normal skin color. Normal skin turgor. Extremities: No lower extremity edema. No calf tenderness Neuro: Oriented X 3. No motor deficit. No sensory deficit.No cerebellar signs , cranial nerves II-XII intact Medications Administered Discontinued Medications Generic Name Dose Route Start Last Admin Trade Name Freq PRN Reason Stop Dose Admin Meclizine HCl 50 mg 03/05/22 17:01 03/05/22 17:22 Meclizine Hcl 25 Mg Tablet PO 03/05/22 17:02 50 mg ONCE ONE Administration Medical Decision Making Medical Decision Making MDM Narrative: Patient with dizziness workup negative improved after meclizine able to ambulate without any significant distress will discharge patient on meclizine Lab Data [facility] Lab Attestation statement: I reviewed the patient's lab results. 03/05/22 16:04 03/05/22 16:04 Labs: Lab Results 03/05/22 03/05/22 03/05/22 Range/Units 16:04 16:04 16:05 WBC 5.5 (4.8-10.8) X10*3/uL RBC 4.13 L (4.20-5.50) X10*6/uL Hgb 11.8 L (12.0-16.0) g/dl Hct 36.3 L (37.0-47.0) % MCV 87.9 (80.0-98.0) fL MCH 28.6 (27.0-33.0) pg MCHC 32.5 (31.0-35.0) g/dl RDW 14.0 (11.0-16.0) % Plt Count 275 (160-400) X10*3/uL MPV 9.1 L (9.4-12.3) fL Immature Gran % (Auto) 0.2 (0.0-0.4) % Neut % (Auto) 54.5 (45-73) % Lymph % (Auto) 37.6 (20-40) % [place] % (Auto) 6.0 (2-11) % Eos % (Auto) 1.3 (0-4) % Baso % (Auto) 0.4 (0-2) % Lymph # (Auto) 2.1 (1.2-4.9) X10*3/uL [place] # (Auto) 0.3 (0.1-1.2) X10*3/uL Eos # (Auto) 0.1 (0.0-0.4) X10*3/uL Baso # (Auto) 0.0 (0.0-0.2) X10*3/uL Abs Immat Gran (auto) 0.01 (0.00-0.03) X10*3/uL Absolute Neuts (auto) 3.0 (2.0-8.3) x10*3/uL Absolute Nucleated RBC 0.000 (0.0-0.012) X10*3/uL Nucleated RBC % (auto) 0.0 (0.0-0.2) /100WBC PT (10.0-13.1) SEC INR (0.9-1.1) APTT (26.0-36.4) SEC Sodium 141 (135-145) mmol/L Potassium 4.2 (3.3-5.1) mmol/L Chloride 107 (96-108) mmol/L Carbon Dioxide 26 (22-29) mmol/L Anion Gap 12 (12-20) BUN 11 (9-16) mg/dL Creatinine 0.65 (0.5-1.4) mg/dL Estim Creat Clear Calc 109.1 Estimated GFR > 60 Random Glucose 88 (60-115) mg/dL Calcium 9.6 (8.4-10.2) mg/dL Total Bilirubin 0.3 (0.0-1.0) mg/dL AST 18 (5-31) U/L ALT 15 (0-31) U/L Alkaline Phosphatase 111 (39-117) U/L Troponin I High Sens < 3.5 (<3.5-17.0) ng/L Total Protein 7.1 (6.5-8.0) g/dL Albumin 4.0 (3.5-5.0) g/dL Beta HCG, Quant mIU/mL Urine Color Urine Appearance Urine pH (5.0-9.0) Ur Specific [place] (1.005-1.025) Urine Protein (Neg-Trace) mg/dL Urine Glucose (UA) (Negative) mg/dL Urine Ketones (Negative) mg/dL Urine Blood (Negative) Urine Nitrite (Negative) Ur Leukocyte Esterase (Negative) Urine RBC (0-2) /HPF Urine WBC (0-5) /HPF Ur Squamous Epith Cells (0-2) /HPF Urine Bacteria (None Seen) Hyaline Casts (0-2) /LPF 03/05/22 03/05/22 03/05/22 Range/Units 16:05 16:05 18:52 WBC (4.8-10.8) X10*3/uL RBC (4.20-5.50) X10*6/uL Hgb (12.0-16.0) g/dl Hct (37.0-47.0) % MCV (80.0-98.0) fL MCH (27.0-33.0) pg MCHC (31.0-35.0) g/dl RDW (11.0-16.0) % Plt Count (160-400) X10*3/uL MPV (9.4-12.3) fL Immature Gran % (Auto) (0.0-0.4) % Neut % (Auto) (45-73) % Lymph % (Auto) (20-40) % [place] % (Auto) (2-11) % Eos % (Auto) (0-4) % Baso % (Auto) (0-2) % Lymph # (Auto) (1.2-4.9) X10*3/uL [place] # (Auto) (0.1-1.2) X10*3/uL Eos # (Auto) (0.0-0.4) X10*3/uL Baso # (Auto) (0.0-0.2) X10*3/uL Abs Immat Gran (auto) (0.00-0.03) X10*3/uL Absolute Neuts (auto) (2.0-8.3) x10*3/uL Absolute Nucleated RBC (0.0-0.012) X10*3/uL Nucleated RBC % (auto) (0.0-0.2) /100WBC PT 11.5 (10.0-13.1) SEC INR 1.0 (0.9-1.1) APTT 29.3 (26.0-36.4) SEC Sodium (135-145) mmol/L Potassium (3.3-5.1) mmol/L Chloride (96-108) mmol/L Carbon Dioxide (22-29) mmol/L Anion Gap (12-20) BUN (9-16) mg/dL Creatinine (0.5-1.4) mg/dL Estim Creat Clear Calc Estimated GFR Random Glucose (60-115) mg/dL Calcium (8.4-10.2) mg/dL Total Bilirubin (0.0-1.0) mg/dL AST (5-31) U/L ALT (0-31) U/L Alkaline Phosphatase (39-117) U/L Troponin I High Sens (<3.5-17.0) ng/L Total Protein (6.5-8.0) g/dL Albumin (3.5-5.0) g/dL Beta HCG, Quant < 2 mIU/mL Urine Color Yellow Urine Appearance Clear Urine pH 6.5 (5.0-9.0) Ur Specific [place] 1.010 (1.005-1.025) Urine Protein Negative (Neg-Trace) mg/dL Urine Glucose (UA) Negative (Negative) mg/dL Urine Ketones Negative (Negative) mg/dL Urine Blood Large (3+) H (Negative) Urine Nitrite Negative (Negative) Ur Leukocyte Esterase Negative (Negative) Urine RBC 3-5 H (0-2) /HPF Urine WBC 0-5 (0-5) /HPF Ur Squamous Epith Cells 0-2 (0-2) /HPF Urine Bacteria None Seen (None Seen) Hyaline Casts 0-2 (0-2) /LPF Discharge Plan Discharge Clinical Impression: Benign paroxysmal positional vertigo Patient Disposition: Home, Self-Care Instructions: Benign Paroxysmal Positional Vertigo (ED) Additional Instructions: Rest at home Take medication as prescribed Avoid quick movements Follow with PCP Prescriptions: New meclizine 25 mg tablet 25 mg PO TID PRN (Reason: dizziness) Qty: 20 0RF No Action fenofibrate 54 mg tablet 54 mg PO DAILY 90 Days Qty: 90 1RF cholecalciferol (vitamin D3) 25 mcg (1,000 unit) capsule 25 mcg PO DAILY 90 Days Qty: 90 0RF fluticasone propionate [Flonase Allergy Relief] 50 mcg/actuation spray,suspension 1 spray intranasal DAILY Rx Instructions: administer into each nostril lorazepam 1 mg tablet 1 mg PO BID PRN (Reason: anxiety) 30 Days Qty: 45 0RF Citrucel 500 mg tablet 500 mg PO DAILY Qty: 90 4RF Rx Instructions: take it with full glass of water docusate sodium 100 mg capsule 100 mg PO BEDTIME Qty: 90 4RF omeprazole 20 mg capsule,delayed release(DR/EC) 20 mg PO DAILY Qty: 30 3RF Interventions: ED Discharge Assessment Last Done: 03/05/22 19:40 Discharge Date/Time: 03/05/22 19:41
[2022-03-05 16:51] VITALS: BP 119/77; PULSE 64
[2022-03-05 16:52] VITALS: BP 144/88; PULSE 86
[2022-03-05 16:55] VITALS: BP 137/81; PULSE 75
[2022-03-05 16:56] VITALS: BP 137/81; PULSE 71; RESP 20; TEMP 36.8; O2SAT 100
[2022-03-05] MEDS: Meclizine HCl 25 MG TABLET 50 MG PO (17:22)
[2022-03-05 19:00] LABS: Appearance Urine Clear; Color Urine Yellow; Glucose Urine UA Negative (Negative); Leukocyte Esterase Urine Negative (Negative); Nitrite Urine Negative (Negative); PH 6.5 (5.0-9.0); UMIC TRIGGER UACC YES; Urine Blood Large (3+) (Negative); Urine Ketones Negative (Negative); Urine Protein Negative (Neg-Trace)
[2022-03-05 19:15] LABS: Bacteria Urine None Seen (None Seen); Hyaline Casts Urine 0-2 /LPF (0-2); Squamous Epithelial Cell Urine 0-2 /HPF (0-2); WBC Urine 0-5 /HPF (0-5)
== END 2022-03-05 19:41 | disposition home or self-care (01) ==
PROVIDERS: Physician Assistant; Emergency Provider Internal Medicine; PCP Internal Medicine
DX: H81.11 Benign paroxysmal vertigo, right ear (principal); M54.2 Cervicalgia
CPT/HCPCS: 36415; 70450; 72125; 80053; 81001; 81003; 84484; 84702; 85025; 85610; 85730; 93005; 99284; 99285

== ENCOUNTER 2022-03-26 10:58 | Outpatient (REF) | payer OTHER, SELFPAY ==
--- NOTE | ~2022-03-26 | MM_ITS ---
EXAMINATION: MM DIAGNOSTIC DIGITAL BREAST TOMOSYNTHESIS, BILATERAL CLINICAL INFORMATION: Routine screening right breast. Follow-up calcifications left breast. The lifetime risk of breast cancer based on the Tyrer-Cuzick Model is 17.6%. COMPARISON: Mammography: March 24, 2021 and studies dating back to November 15, 2015 TECHNIQUE: Digital breast tomosynthesis is performed in both the craniocaudal and mediolateral oblique views along with computer-aided detection (CAD). Synthesized 2D images are generated from the tomosynthesis. Additional spot magnification views of the left breast in craniocaudal and 90 degree mediolateral views performed. FINDINGS: The breasts are heterogeneously dense, which may obscure small masses (ACR BI-RADS breast composition Category c). There are no significant masses, abnormal calcifications, or other abnormalities. Stable calcifications again seen. Results are provided to the patient at time of visit by the technologist. MM/MM tomosynthesis diagnostic BI IMPRESSION: There are no significant changes from prior study. ASSESSMENT: BI-RADS 2: Benign RECOMMENDATION: Routine annual mammography screening. This patient's information was entered into a reminder system with a target due date for their next mammogram.
== END 2022-03-26 10:59 | disposition home or self-care (01) ==
LOC: HO.MAMMO 10:58
PROVIDERS: PCP Internal Medicine; Visit Provider Internal Medicine
DX: R92.1 Mammographic calcification found on diagnostic imaging of breast (principal)
CPT/HCPCS: 77062; 77066

== ENCOUNTER 2022-06-27 13:29 | Emergency (ER) | payer OTHER, SELFPAY ==
--- NOTE | ~2022-06-27 | CT_ITS ---
EXAMINATION: CT abdomen pelvis wo IV con CLINICAL INFORMATION: Reason for Exam right sided back/flank pain without contrast COMPARISON: Prior CT April 2021 TECHNIQUE: Multidetector volumetric imaging was performed from the superior aspect of the liver through the pubic symphysis , noncontrasted study. Sagittal and coronal reformatted images were obtained on the technologist's workstation. This CT examination was performed using dose optimization techniques as appropriate, variously including the following: *Automated exposure control *Adjustment of mA and/or kV according to patient size (this includes techniques or standardized protocols for targeted exams where dose is matched to indication/reason for exam; i.e. extremities or head) *Use of iterative reconstruction technique DLP: 618 mGy-cm FINDINGS: LOWER THORAX: Included lung bases are clear. HEPATOBILIARY: No focal hepatic lesions. No biliary ductal dilatation. GALLBLADDER: Gallbladder unremarkable. SPLEEN: Spleen is normal in size. PANCREAS: No focal mass or ductal dilatation. STOMACH AND GASTROINTESTINAL TRACT: Stomach is grossly unremarkable. There are few diverticula of the sigmoid colon without evidence of diverticulitis. Evaluation of the bowel is limited on noncontrasted study. No obstruction. No CT evidence of appendicitis. ADRENALS: No adrenal nodules. KIDNEYS/URETERS: There is a tiny 2 mm nonobstructing stone left kidney, no hydronephrosis. Perinephric fat are clear. URINARY BLADDER: Partially decompressed. PELVIC VISCERA: Unremarkable PERITONEUM: No free air or fluid. LYMPH NODES: No lymphadenopathy. VASCULAR:Abdominal aorta normal in size, no aneurysm found. BONES, ABDOMINAL WALL AND SOFT TISSUES: Age-appropriate changes of the spine and skeletal system, no destructive osteolytic or osteosclerotic bone lesion found CT/CT abdomen pelvis wo IV con IMPRESSION: * No CT evidence of acute intra-abdominal process to explain patient's pain symptoms. * Tiny 2 mm nonobstructing stone left kidney. No hydronephrosis. * Diverticulosis without evidence of acute diverticulitis.
--- NOTE | ~2022-06-27 | CT_ITS ---
EXAMINATION: CT CHEST WITH CONTRAST CLINICAL INFORMATION: Right posterior lower chest pain COMPARISON: None available. TECHNIQUE: Multidetector volumetric CT imaging of the chest was obtained after the administration of 65 mL of Omnipaque 350 intravenous contrast without immediate adverse reactions. Axial MIP volume rendering provided. Sagittal and coronal reformatted images were obtained. This CT examination was performed using dose optimization techniques as appropriate, variously including the following: *Automated exposure control *Adjustment of mA and/or kV according to patient size (this includes techniques or standardized protocols for targeted exams where dose is matched to indication/reason for exam; i.e. extremities or head) *Use of iterative reconstruction technique DLP: 297 mGy-cm FINDINGS: LUNGS: No parenchymal consolidation or pneumonitis. No evidence of interstitial lung disease. Calcified granuloma present in the right upper lobe. No suspicious pulmonary nodules. MEDIASTINUM: Normal heart size. No pericardial effusion. Great vessels normal caliber. No mediastinal, hilar or supraclavicular lymphadenopathy. Imaged thyroid gland unremarkable. PLEURA: There is no pleural effusion. No pleural mass or thickening. AXILLA: No lymphadenopathy. UPPER ABDOMEN: Unremarkable OSSEOUS STRUCTURES: No acute or suspicious osseous abnormalities. Small endplate ossified present throughout the thoracic spine. CT/CT chest w IV con IMPRESSION: No etiology for the patient's right posterior chest pain is identified. Fleischner guidelines were followed.
[2022-06-27 14:05] VITALS: BP 123/82; PULSE 84; RESP 18; TEMP 36.6; O2SAT 100; BMI 31.9
--- NOTE | 2022-06-27 14:06 | ED_ITS ---
HPI - Back Pain/Injury General Chief Complaint: Abdominal Pain <GORDON Laws - Last Filed: 06/27/22 14:10> Stated Complaint: Back Pain No Injury <GORDON Laws - Last Filed: 06/27/22 14:10> Time Seen by Provider: 06/27/22 20:00 <GORDON Laws - Last Filed: 06/27/22 14:10> Source: patient <Zechariah Li MD - Last Filed: 06/28/22 01:02> Mode of arrival: ambulatory <Zechariah Li MD - Last Filed: 06/28/22 01:02> Limitations: no limitations <Zechariah Li MD - Last Filed: 06/28/22 01:02> History of Present Illness HPI Narrative: . No significant past medical history no significant pain in the back noticed pain on the right side lumbar paraspinal area for last 3 days does not remember any acute injury no urinary complaints pain get worse on movement and taking deep breaths no significant shortness of breath no history of blood clot no leg pain or swelling <Zechariah Li MD - Last Filed: 06/28/22 01:02> Related Data Home Medications: Home Medications Medication Instructions Recorded Confirmed fluticasone propionate 50 1 spray intranasal DAILY 11/17/19 02/27/22 mcg/actuation nasal spray,suspension (Flonase Allergy Relief) Previous Rx's Medication Instructions Recorded lorazepam 1 mg tablet 1 mg PO BID PRN anxiety 30 days 08/30/20 #45 tabs omeprazole 20 mg capsule,delayed 20 mg PO DAILY #30 caps 07/31/21 release methylcellulose (laxative) 500 mg 500 mg PO DAILY #90 tabs 11/22/21 tablet (Citrucel) cholecalciferol (vitamin D3) 25 25 mcg PO DAILY 90 days #90 caps 02/27/22 mcg (1,000 unit) capsule docusate sodium 100 mg capsule 100 mg PO BEDTIME #90 caps 02/27/22 fenofibrate 54 mg tablet 54 mg PO DAILY 90 days #90 tabs 02/27/22 meclizine 25 mg tablet 25 mg PO TID PRN dizziness #20 tabs 03/05/22 cyclobenzaprine 10 mg tablet 10 mg PO Q8H #20 tabs 06/27/22 tramadol 50 mg tablet 50 mg PO Q6H PRN pain #20 tabs 06/27/22 <GORDON Laws - Last Filed: 06/27/22 14:10> Allergies/Adverse Reactions: Allergies Allergy/AdvReac Type Severity Reaction Status Date / Time No Known Allergies Allergy Verified 03/05/22 14:31 [No Known Allergies*] <GORDON Laws - Last Filed: 06/27/22 14:10> Review of Systems Review of Systems: Yes all other systems are reviewed and are negative <Zechariah Li MD - Last Filed: 06/28/22 01:02> [facility] Past Medical History Medical History: Medical History Constipation by delayed colonic transit Depression with anxiety Family history of colon cancer CHASE (generalized anxiety disorder) GERD (gastroesophageal reflux disease) Hypovitaminosis D Left breast mass Left sided sciatica Mild recurrent major depression Seasonal allergic rhinitis due to pollen <GORDON Laws - Last Filed: 06/27/22 14:10> Surgical History: Surgical History H/O cervical polypectomy H/O lithotripsy History of esophagogastroduodenoscopy (EGD) Hx of colonoscopy <GORDON Laws - Last Filed: 06/27/22 14:10> Family History Family History: Family History Father Hypercholesteremia Mother Hypertension Maternal Grandmother Hypertension CAD (coronary artery disease) Maternal Grandfather No problems noted. Maternal Aunt Breast cancer Diabetes Son No problems noted. Paternal Grandfather No problems noted. Paternal Grandmother No problems noted. <GORDON Laws - Last Filed: 06/27/22 14:10> Social History Social History: Social History Housing: Apartment Alcohol intake: current Alcohol intake frequency: holidays/special occasions only Alcohol type: hard liquor Patient Tobacco Use Status: Never used Tobacco Smoked in Last 30 Days: No e-Cigarette/Vaping Use: Never Used Second Hand Smoke Exposure: No Use of substances other than those prescribed or required for medical reasons: No Advance Directives: No Advance Directives Information Provided: Yes Patient : No service: No Current occupational status: unemployed Cognitive needs: No Hearing needs: No Vision needs: No <GORDON Laws - Last Filed: 06/27/22 14:10> Physical Exam Vital Signs: Vital Signs: Last Vital Signs Temp 97.5 F 06/27/22 21:51 Pulse 78 06/27/22 21:51 Resp 17 06/27/22 21:51 BP 139/70 06/27/22 21:51 Pulse Ox 100 06/27/22 21:51 O2 Del Method Room Air 06/27/22 21:51 BMI result Body Mass Index 31.9 <GORDON Laws - Last Filed: 06/27/22 14:10> Vital Signs: Last Vital Signs Temp 97.5 F 06/27/22 21:51 Pulse 78 06/27/22 21:51 Resp 17 06/27/22 21:51 BP 139/70 06/27/22 21:51 Pulse Ox 100 06/27/22 21:51 O2 Del Method Room Air 06/27/22 21:51 BMI result Body Mass Index 31.9 <Zechariah Li MD - Last Filed: 06/28/22 01:02> Appearance: Alert. Oriented X3. No acute distress. Eyes: No pallor or icterus ENT: Pharynx normal. Oral Mucosa moist Neck: Normal inspection. Neck supple. CVS: Normal heart rate and rhythm. Pulses normal. Respiratory: No respiratory distress. Equal air entry bilateral, no wheezing/rales/rhonchi Abdomen: Soft and nontender. Bowel sounds are present, no mass palpable, no CVA tenderness deep tenderness right lumbar paraspinal area Skin: Skin warm and dry. Normal skin color. Normal skin turgor. Extremities: No lower extremity edema. No calf tenderness Neuro: Oriented X 3. No motor deficit. No sensory deficit.No cerebellar signs , cranial nerves II-XII intact <Zechariah Li MD - Last Filed: 06/28/22 01:02> Course Course Course Narrative: RME - 51 yo female with history of sciatica, kidney stones presents to the ER for evaluation of nontraumatic right sided back pain for the last 3 days. The pain is in the right middle and lower back. No improvement with Advil. No urinary symptoms. No nausea or vomiting. No CVA tenderness on exam. Will check basic labs and CT scan given her history of kidney stones. Plan: labs, UA, CT scan abd/pelvis given history of kidney stones <GORDON Laws - Last Filed: 06/27/22 14:10> Medications Administered Discontinued Medications Generic Name Dose Route Start Last Admin Trade Name Freq PRN Reason Stop Dose Admin Cyclobenzaprine HCl 10 mg 06/27/22 20:38 06/27/22 20:57 Cyclobenzaprine Hcl 10 Mg Tablet PO 06/27/22 20:39 10 mg ONCE ONE Administration Dexamethasone Sodium Phosphate 10 mg 06/27/22 21:48 06/27/22 21:57 Dexamethasone Sod Phosphate 10 Mg/Ml Vial IVPUSH 06/27/22 21:49 10 mg ONCE ONE Administration Iohexol 100 ml 06/27/22 22:25 06/27/22 22:25 Iohexol 350 Mg/Ml 100 Ml Infus..Btl IV 06/27/22 22:26 65 ml ONCE ONE Administration Ketorolac Tromethamine 30 mg 06/27/22 21:48 06/27/22 21:57 Ketorolac Tromethamine 30 Mg/Ml Vial IVPUSH 06/27/22 21:49 30 mg ONCE ONE Administration Morphine Sulfate 4 mg 06/27/22 20:37 06/27/22 20:56 Morphine Sulfate 4 Mg/Ml Cartridge IVPUSH 06/27/22 20:38 4 mg ONCE ONE Administration Protocol Ondansetron HCl 4 mg 06/27/22 20:37 06/27/22 20:56 Ondansetron Hcl 4 Mg/2 Ml Vial IVPUSH 06/27/22 20:38 4 mg ONCE ONE Administration <GORDON Laws - Last Filed: 06/27/22 14:10> Medications Administered Discontinued Medications Generic Name Dose Route Start Last Admin Trade Name Freq PRN Reason Stop Dose Admin Cyclobenzaprine HCl 10 mg 06/27/22 20:38 06/27/22 20:57 Cyclobenzaprine Hcl 10 Mg Tablet PO 06/27/22 20:39 10 mg ONCE ONE Administration Dexamethasone Sodium Phosphate 10 mg 06/27/22 21:48 06/27/22 21:57 Dexamethasone Sod Phosphate 10 Mg/Ml Vial IVPUSH 06/27/22 21:49 10 mg ONCE ONE Administration Iohexol 100 ml 06/27/22 22:25 06/27/22 22:25 Iohexol 350 Mg/Ml 100 Ml Infus..Btl IV 06/27/22 22:26 65 ml ONCE ONE Administration Ketorolac Tromethamine 30 mg 06/27/22 21:48 06/27/22 21:57 Ketorolac Tromethamine 30 Mg/Ml Vial IVPUSH 06/27/22 21:49 30 mg ONCE ONE Administration Morphine Sulfate 4 mg 06/27/22 20:37 06/27/22 20:56 Morphine Sulfate 4 Mg/Ml Cartridge IVPUSH 06/27/22 20:38 4 mg ONCE ONE Administration Protocol Ondansetron HCl 4 mg 06/27/22 20:37 06/27/22 20:56 Ondansetron Hcl 4 Mg/2 Ml Vial IVPUSH 06/27/22 20:38 4 mg ONCE ONE Administration <Zechariah Li MD - Last Filed: 06/28/22 01:02> Medical Decision Making Medical Decision Making [facility] Narrative: Patient with atraumatic right paralumbar spinal pain dated workup including CT scan of the abdomen negative for any kidney stone or pathology CTA chest was done also was negative for any lesion the lungs or vascular lesions D- dimer was negative likely unlikely PE patient pain get worse on certain movements likely muscle spasm discharge patient home on Flexeril and tramadol <Zechariah Li MD - Last Filed: 06/28/22 01:02> Differential Diagnosis Kidney stone/pneumothorax/pneumonitis/lumbar sprain/PE <Zechariah Ibrahim i, MD - Last Filed: 06/28/22 01:02> Lab Data [facility] Lab Attestation statement: I reviewed the patient's lab results. <Zechariah Li MD - Last Filed: 06/28/22 01:02> Result Diagrams: 06/27/22 14:23 06/27/22 14:23 <GORDON Laws - Last Filed: 06/27/22 14:10> Labs: Lab Results 06/27/22 06/27/22 06/27/22 Range/Units 14:23 14:23 14:23 WBC 6.3 (4.8-10.8) X10*3/uL RBC 4.10 L (4.20-5.50) X10*6/uL Hgb 12.2 (12.0-16.0) g/dl Hct 37.2 (37.0-47.0) % MCV 90.7 (80.0-98.0) fL MCH 29.8 (27.0-33.0) pg MCHC 32.8 (31.0-35.0) g/dl RDW 13.4 (11.0-16.0) % Plt Count 278 (160-400) X10*3/uL MPV 8.8 L (9.4-12.3) fL Immature Gran % (Auto) 0.3 (0.0-0.4) % Neut % (Auto) 51.4 (45-73) % Lymph % (Auto) 37.6 (20-40) % [place] % (Auto) 7.8 (2-11) % Eos % (Auto) 2.4 (0-4) % Baso % (Auto) 0.5 (0-2) % Lymph # (Auto) 2.4 (1.2-4.9) X10*3/uL [place] # (Auto) 0.5 (0.1-1.2) X10*3/uL Eos # (Auto) 0.2 (0.0-0.4) X10*3/uL Baso # (Auto) 0.0 (0.0-0.2) X10*3/uL Abs Immat Gran (auto) 0.02 (0.00-0.03) X10*3/uL Absolute Neuts (auto) 3.3 (2.0-8.3) x10*3/uL Absolute Nucleated RBC 0.000 (0.0-0.012) X10*3/uL Nucleated RBC % (auto) 0.0 (0.0-0.2) /100WBC D-Dimer High Sensitivty NG/ML Sodium 144 (135-145) mmol/L Potassium 4.1 (3.3-5.1) mmol/L Chloride 108 (96-108) mmol/L Carbon Dioxide 29 (22-29) mmol/L Anion Gap 11 L (12-20) BUN 13 (9-16) mg/dL Creatinine 0.66 (0.5-1.4) mg/dL Estim Creat Clear Calc 107.1 Estimated GFR > 60 Random Glucose 78 (60-115) mg/dL Calcium 9.5 (8.4-10.2) mg/dL Magnesium 2.0 (1.6-2.6) mg/dL Total Bilirubin 0.4 (0.0-1.0) mg/dL Direct Bilirubin 0.1 (0.0-0.5) mg/dL AST 21 (5-31) U/L ALT 20 (0-31) U/L Alkaline Phosphatase 83 (39-117) U/L Total Protein 7.5 (6.5-8.0) g/dL Albumin 4.4 (3.5-5.0) g/dL Urine Color Yellow Urine Appearance Clear Urine pH >= 9.0 (5.0-9.0) Ur Specific [place] 1.020 (1.005-1.025) Urine Protein Trace (Neg-Trace) mg/dL Urine Glucose (UA) Negative (Negative) mg/dL Urine Ketones Negative (Negative) mg/dL Urine Blood Negative (Negative) Urine Nitrite Negative (Negative) Ur Leukocyte Esterase Negative (Negative) 06/27/22 Range/Units 20:51 WBC (4.8-10.8) X10*3/uL RBC (4.20-5.50) X10*6/uL Hgb (12.0-16.0) g/dl Hct (37.0-47.0) % MCV (80.0-98.0) fL MCH (27.0-33.0) pg MCHC (31.0-35.0) g/dl RDW (11.0-16.0) % Plt Count (160-400) X10*3/uL MPV (9.4-12.3) fL Immature Gran % (Auto) (0.0-0.4) % Neut % (Auto) (45-73) % Lymph % (Auto) (20-40) % [place] % (Auto) (2-11) % Eos % (Auto) (0-4) % Baso % (Auto) (0-2) % Lymph # (Auto) (1.2-4.9) X10*3/uL [place] # (Auto) (0.1-1.2) X10*3/uL Eos # (Auto) (0.0-0.4) X10*3/uL Baso # (Auto) (0.0-0.2) X10*3/uL Abs Immat Gran (auto) (0.00-0.03) X10*3/uL Absolute Neuts (auto) (2.0-8.3) x10*3/uL Absolute Nucleated RBC (0.0-0.012) X10*3/uL Nucleated RBC % (auto) (0.0-0.2) /100WBC D-Dimer High Sensitivty < 150 NG/ML Sodium (135-145) mmol/L Potassium (3.3-5.1) mmol/L Chloride (96-108) mmol/L Carbon Dioxide (22-29) mmol/L Anion Gap (12-20) BUN (9-16) mg/dL Creatinine (0.5-1.4) mg/dL Estim Creat Clear Calc Estimated GFR Random Glucose (60-115) mg/dL Calcium (8.4-10.2) mg/dL Magnesium (1.6-2.6) mg/dL Total Bilirubin (0.0-1.0) mg/dL Direct Bilirubin (0.0-0.5) mg/dL AST (5-31) U/L ALT (0-31) U/L Alkaline Phosphatase (39-117) U/L Total Protein (6.5-8.0) g/dL Albumin (3.5-5.0) g/dL Urine Color Urine Appearance Urine pH (5.0-9.0) Ur Specific [place] (1.005-1.025) Urine Protein (Neg-Trace) mg/dL Urine Glucose (UA) (Negative) mg/dL Urine Ketones (Negative) mg/dL Urine Blood (Negative) Urine Nitrite (Negative) Ur Leukocyte Esterase (Negative) <GORDON Laws - Last Filed: 06/27/22 14:10> Lab Results 06/27/22 06/27/22 06/27/22 Range/Units 14:23 14:23 14:23 WBC 6.3 (4.8-10.8) X10*3/uL RBC 4.10 L (4.20-5.50) X10*6/uL Hgb 12.2 (12.0-16.0) g/dl Hct 37.2 (37.0-47.0) % MCV 90.7 (80.0-98.0) fL MCH 29.8 (27.0-33.0) pg MCHC 32.8 (31.0-35.0) g/dl RDW 13.4 (11.0-16.0) % Plt Count 278 (160-400) X10*3/uL MPV 8.8 L (9.4-12.3) fL Immature Gran % (Auto) 0.3 (0.0-0.4) % Neut % (Auto) 51.4 (45-73) % Lymph % (Auto) 37.6 (20-40) % [place] % (Auto) 7.8 (2-11) % Eos % (Auto) 2.4 (0-4) % Baso % (Auto) 0.5 (0-2) % Lymph # (Auto) 2.4 (1.2-4.9) X10*3/uL [place] # (Auto) 0.5 (0.1-1.2) X10*3/uL Eos # (Auto) 0.2 (0.0-0.4) X10*3/uL Baso # (Auto) 0.0 (0.0-0.2) X10*3/uL Abs Immat Gran (auto) 0.02 (0.00-0.03) X10*3/uL Absolute Neuts (auto) 3.3 (2.0-8.3) x10*3/uL Absolute Nucleated RBC 0.000 (0.0-0.012) X10*3/uL Nucleated RBC % (auto) 0.0 (0.0-0.2) /100WBC D-Dimer High Sensitivty NG/ML Sodium 144 (135-145) mmol/L Potassium 4.1 (3.3-5.1) mmol/L Chloride 108 (96-108) mmol/L Carbon Dioxide 29 (22-29) mmol/L Anion Gap 11 L (12-20) BUN 13 (9-16) mg/dL Creatinine 0.66 (0.5-1.4) mg/dL Estim Creat Clear Calc 107.1 Estimated GFR > 60 Random Glucose 78 (60-115) mg/dL Calcium 9.5 (8.4-10.2) mg/dL Magnesium 2.0 (1.6-2.6) mg/dL Total Bilirubin 0.4 (0.0-1.0) mg/dL Direct Bilirubin 0.1 (0.0-0.5) mg/dL AST 21 (5-31) U/L ALT 20 (0-31) U/L Alkaline Phosphatase 83 (39-117) U/L Total Protein 7.5 (6.5-8.0) g/dL Albumin 4.4 (3.5-5.0) g/dL Urine Color Yellow Urine Appearance Clear Urine pH >= 9.0 (5.0-9.0) Ur Specific [place] 1.020 (1.005-1.025) Urine Protein Trace (Neg-Trace) mg/dL Urine Glucose (UA) Negative (Negative) mg/dL Urine Ketones Negative (Negative) mg/dL Urine Blood Negative (Negative) Urine Nitrite Negative (Negative) Ur Leukocyte Esterase Negative (Negative) 06/27/22 Range/Units 20:51 WBC (4.8-10.8) X10*3/uL RBC (4.20-5.50) X10*6/uL Hgb (12.0-16.0) g/dl Hct (37.0-47.0) % MCV (80.0-98.0) fL MCH (27.0-33.0) pg MCHC (31.0-35.0) g/dl RDW (11.0-16.0) % Plt Count (160-400) X10*3/uL MPV (9.4-12.3) fL Immature Gran % (Auto) (0.0-0.4) % Neut % (Auto) (45-73) % Lymph % (Auto) (20-40) % [place] % (Auto) (2-11) % Eos % (Auto) (0-4) % Baso % (Auto) (0-2) % Lymph # (Auto) (1.2-4.9) X10*3/uL [place] # (Auto) (0.1-1.2) X10*3/uL Eos # (Auto) (0.0-0.4) X10*3/uL Baso # (Auto) (0.0-0.2) X10*3/uL Abs Immat Gran (auto) (0.00-0.03) X10*3/uL Absolute Neuts (auto) (2.0-8.3) x10*3/uL Absolute Nucleated RBC (0.0-0.012) X10*3/uL Nucleated RBC % (auto) (0.0-0.2) /100WBC D-Dimer High Sensitivty < 150 NG/ML Sodium (135-145) mmol/L Potassium (3.3-5.1) mmol/L Chloride (96-108) mmol/L Carbon Dioxide (22-29) mmol/L Anion Gap (12-20) BUN (9-16) mg/dL Creatinine (0.5-1.4) mg/dL Estim Creat Clear Calc Estimated GFR Random Glucose (60-115) mg/dL Calcium (8.4-10.2) mg/dL Magnesium (1.6-2.6) mg/dL Total Bilirubin (0.0-1.0) mg/dL Direct Bilirubin (0.0-0.5) mg/dL AST (5-31) U/L ALT (0-31) U/L Alkaline Phosphatase (39-117) U/L Total Protein (6.5-8.0) g/dL Albumin (3.5-5.0) g/dL Urine Color Urine Appearance Urine pH (5.0-9.0) Ur Specific [place] (1.005-1.025) Urine Protein (Neg-Trace) mg/dL Urine Glucose (UA) (Negative) mg/dL Urine Ketones (Negative) mg/dL Urine Blood (Negative) Urine Nitrite (Negative) Ur Leukocyte Esterase (Negative) <Zechariah Li MD - Last Filed: 06/28/22 01:02> Discharge Plan Discharge Clinical Impression: Low back strain <GORDON Laws - Last Filed: 06/27/22 14:10> Patient Disposition: Home, Self-Care <GORDON Laws - Last Filed: 06/27/22 14:10> Instructions: Low Back Strain (ED) <GORDON Laws - Last Filed: 06/27/22 14:10> Additional Instructions: Take pain medication and muscle relaxer as prescribed Follow with PCP <GORDON Laws - Last Filed: 06/27/22 14:10> Prescriptions: New cyclobenzaprine 10 mg tablet 10 mg PO Q8H Qty: 20 0RF tramadol 50 mg tablet 50 mg PO Q6H PRN (Reason: pain) Qty: 20 0RF No Action fenofibrate 54 mg tablet 54 mg PO DAILY 90 Days Qty: 90 1RF cholecalciferol (vitamin D3) 25 mcg (1,000 unit) capsule 25 mcg PO DAILY 90 Days Qty: 90 0RF meclizine 25 mg tablet 25 mg PO TID PRN (Reason: dizziness) Qty: 20 0RF fluticasone propionate [Flonase Allergy Relief] 50 mcg/actuation spray,suspension 1 spray intranasal DAILY Rx Instructions: administer into each nostril lorazepam 1 mg tablet 1 mg PO BID PRN (Reason: anxiety) 30 Days Qty: 45 0RF Citrucel 500 mg tablet 500 mg PO DAILY Qty: 90 4RF Rx Instructions: take it with full glass of water docusate sodium 100 mg capsule 100 mg PO BEDTIME Qty: 90 4RF omeprazole 20 mg capsule,delayed release(DR/EC) 20 mg PO DAILY Qty: 30 3RF <GORDON Laws - Last Filed: 06/27/22 14:10> Interventions: ED Discharge Assessment Last Done: 06/27/22 23:36 <GORDON Laws - Last Filed: 06/27/22 14:10> Discharge Date/Time: 06/27/22 23:54 <GORDON Laws - Last Filed: 06/27/22 14:10>
[2022-06-27 14:28] LABS: MANUAL DIFF FLAG NO
[2022-06-27 14:30] LABS: Appearance Urine Clear; Color Urine Yellow; Glucose Urine UA Negative (Negative); Leukocyte Esterase Urine Negative (Negative); Nitrite Urine Negative (Negative); PH >= 9.0 (5.0-9.0); Urine Blood Negative (Negative); Urine Ketones Negative (Negative); Urine Protein Trace mg/dL (Neg-Trace)
[2022-06-27 14:32] LABS: Basophils Percent Auto 0.5 % (0-2); Eosinophils Absolute Auto 0.2 X10*3/uL (0.0-0.4); Eosinophils Percent Auto 2.4 % (0-4); Hematocrit 37.2 % (37.0-47.0); Hemoglobin 12.2 g/dl (12.0-16.0); Imm Gran Abs Auto 0.02 X10*3/uL (0.00-0.03); Imm Gran Pct Auto 0.3 % (0.0-0.4); Lymphocytes Absolute Auto 2.4 X10*3/uL (1.2-4.9); Lymphocytes Percent Auto 37.6 % (20-40); Mean Corpuscular HGB Conc 32.8 g/dl (31.0-35.0); Mean Corpuscular Hemoglobin 29.8 pg (27.0-33.0); Mean Corpuscular Volume 90.7 fL (80.0-98.0); Mean Platelet Volume 8.8 fL (9.4-12.3); Monocytes Absolute Auto 0.5 X10*3/uL (0.1-1.2); Monocytes Percent Auto 7.8 % (2-11); Neutrophils Absolute Auto 3.3 x10*3/uL (2.0-8.3); Neutrophils Percent Auto 51.4 % (45-73); Platelet Count 278 X10*3/uL (160-400); Red Cell Distribution Width 13.4 % (11.0-16.0); White Blood Count 6.3 X10*3/uL (4.8-10.8)
[2022-06-27 15:10] LABS: Alanine Aminotransferase 20 U/L (0-31); Albumin Level 4.4 g/dL (3.5-5.0); Alkaline Phosphatase 83 U/L (39-117); Anion Gap 11 (12-20); Aspartate Amino Transferase 21 U/L (5-31); Bilirubin Direct 0.1 mg/dL (0.0-0.5); Bilirubin Total 0.4 mg/dL (0.0-1.0); Blood Urea Nitrogen 13 mg/dL (9-16); Calcium 9.5 mg/dL (8.4-10.2); Carbon Dioxide 29 mmol/L (22-29); Chloride 108 mmol/L (96-108); Creatinine Clr Calc Pharmacy 107.1; Estimated Glomerular Filt Rate > 60; Glucose Random 78 mg/dL (60-115); Potassium 4.1 mmol/L (3.3-5.1); Sodium 144 mmol/L (135-145); Total Protein 7.5 g/dL (6.5-8.0)
[2022-06-27 19:38] VITALS: BP 168/81; PULSE 79; RESP 18; TEMP 36.6; O2SAT 100
[2022-06-27 20:56] VITALS: RESP 16
[2022-06-27] MEDS: ondansetron HCL 4 MG/2 ML VIAL IVPUSH (20:56)
[2022-06-27] MEDS: Morphine Sulfate 4 MG/ML CARTRIDGE IVPUSH (20:56)
[2022-06-27] MEDS: Cyclobenzaprine HCl 10 MG TABLET PO (20:57)
[2022-06-27 21:27] LABS: D Dimer High Sensitivity < 150 NG/ML
[2022-06-27 21:51] VITALS: BP 139/70; PULSE 78; RESP 17; TEMP 36.4; O2SAT 100
[2022-06-27] MEDS: dexAMETHasone sod phosphate 10 MG/ML VIAL IVPUSH (21:57)
[2022-06-27] MEDS: Ketorolac Tromethamine 30 MG/ML VIAL IVPUSH (21:57)
[2022-06-27] MEDS: iohexoL 350 MG/ML 100 ML INFUS..BTL IV (22:25)
== END 2022-06-27 23:54 | disposition home or self-care (01) ==
PROVIDERS: Physician Assistant; Emergency Provider Internal Medicine; PCP Internal Medicine
DX: S39.012A Strain of muscle, fascia and tendon of lower back, initial encounter (principal); X58.XXXA Exposure to other specified factors, initial encounter; Y93.9 Activity, unspecified; Y92.9 Unspecified place or not applicable; Y99.9 Unspecified external cause status
CPT/HCPCS: 36415; 71260; 74176; 80048; 80076; 81003; 83735; 85025; 85379; 96374; 96375; 99284; 99285; J1100; J1885; J2270; J2405; Q9967

== ENCOUNTER 2022-09-06 10:00 | Outpatient (AMB) | payer OTHER, SELFPAY ==
[2022-09-06 10:06] VITALS: BP 132/80; BMI 31.8
--- NOTE | 2022-09-06 10:06 | MHC.PC.OV ---
Vital Signs 09/06/22 10:06 Height 5 ft 4 in Weight 185 lb BMI 31.8 BP 132/80 Blood Pressure Location Lt brachial Position Sitting Intake Visit Reasons: Physical Exam Intake Note: Patient here for a physical exam Highway Maintainer Required: No Accompanied by: Self / Same As Patient Allergies fenofibrate Adverse Reaction (Mild, Verified 09/06/22 10:26) hair loss Medication List - Last Reconciled 09/06/22 by Kelsi Perdomo MD cholecalciferol (vitamin D3) 25 mcg PO DAILY 90 days docusate sodium 100 mg PO BEDTIME fluticasone propionate 50 mcg/actuation (Flonase Allergy Relief) 1 spray intranasal DAILY lorazepam 1 mg PO BID PRN 30 days meclizine 25 mg PO TID PRN methylcellulose (laxative) (Citrucel) 500 mg PO DAILY omeprazole 20 mg PO DAILY tramadol 50 mg PO Q6H PRN Tobacco use date assessed: 02/27/22 Dental Screening Dental Screen Date: 09/06/22 Did you have a dental visit in the last 12 months?: Yes Did you have a dental problem in the last 6 months where you did not have access to dental care?: No Was dental information given to patient?: Patient has dentist HPI HPI Comments History of Present Illness Details This is a 52-year-old female that comes for her physical exam. Last mammogram was 2022 and was normal. Last Pap smear was 2022 and was normal with HPV negative. Last colonoscopy was 2020. Denies any chest pain or shortness of breath. Complains of some blurry vision and would like to see Ophthalmology. [facility] Medical History Constipation by delayed colonic transit Depression with anxiety Family history of colon cancer CHASE (generalized anxiety disorder) GERD (gastroesophageal reflux disease) Hypovitaminosis D Left breast mass Left sided sciatica Mild recurrent major depression Seasonal allergic rhinitis due to pollen Surgical History H/O cervical polypectomy H/O lithotripsy History of esophagogastroduodenoscopy (EGD) Hx of colonoscopy Family History Father Hypercholesteremia Mother Hypertension Maternal Grandmother Hypertension CAD (coronary artery disease) Maternal Grandfather No problems noted. Maternal Aunt Breast cancer Diabetes Son No problems noted. Paternal Grandfather No problems noted. Paternal Grandmother No problems noted. Social History Housing: Apartment Alcohol intake: current Alcohol intake frequency: holidays/special occasions only Alcohol type: hard liquor Patient Tobacco Use Status: Never used Tobacco e-Cigarette/Vaping Use: Never Used Second Hand Smoke Exposure: No service: No Current occupational status: unemployed Cognitive needs: No Hearing needs: No Vision needs: No Female Reproductive History Menstrual Age of Menarche: 13 Questionnaire Thrive Questionnaire Date Thrive assessed: 02/27/22 CHASE-7 AMB Questionnaire CHASE-7 Date CHASE - 7 assessed: 02/27/22 Source: Developed by Drs. Lorenzo Dillon, Nathalie Cheek, Lc Blackwood and colleagues, with an educational junie from [employer] ([employer]). Review of Systems Const All systems reviewed & are unremarkable except as noted in HPI and below Eyes Reports no additional complaints, Denies change in vision and Denies other visual disturbances Card Denies chest pain at rest, Denies chest pain with activity, Denies edema, Denies irregular heart rhythm, Denies claudication, Denies dyspnea, Denies dyspnea on exertion, Denies orthopnea, Denies paroxysmal nocturnal dyspnea and Denies slow heart rate Resp Denies cough, Denies dyspnea and Denies dyspnea on exertion GI Denies abdominal pain, Denies change in bowel habits, Denies excessive flatus, Denies nausea and Denies vomiting Denies urinary incontinence, Denies urinary hesitancy and Denies urinary urgency Musc Denies abnormal gait, Denies atrophy, Denies deformity and Denies limited range of motion Skin/Breast Denies bleeding lesions, Denies changing lesions and Denies rash Neuro Denies abnormal gait, Denies confusion and Denies lack of coordination Psych Denies confusion Physical exam (Primary Care) Vital Signs: Last Vital Signs BP 132/80 09/06/22 10:06 BMI result Body Mass Index 31.8 Tobacco/Smoking Status: Tobacco use Status Tobacco use date assessed 02/27/22 09/06/22 10:07 Patient Tobacco Use Status Never used Tobacco 09/06/22 10:07 e-Cigarette/Vaping Use Never Used 07/20/23 10:07 Thrive Assessment: Date of Thrive Assessment Date Thrive assessed 02/27/22 09/06/22 10:07 Const General: No confusion Orientation/consciousness: patient oriented x3 and No confusion HENMT Head: Yes normal to inspection, Yes normocephalic and Yes atraumatic Ears: external ears normal Eyes General: appearance normal, both eyes and all related structures Eyelids: Yes eyelids normal Conjunctivae: conjunctivae normal Neck Neck: Yes normal visual inspection and Yes supple Resp Effort & Inspection: normal respiratory effort Auscultation: clear to auscultation bilaterally Cardio Jugular venous distension: no JVD Rate: regular rate Rhythm: regular rhythm Heart sounds: S1 normal heart sound present and S2 normal heart sound present GI Inspection: Yes normal to inspection Palpation (GI): Soft to palpation and nontender Auscultation: normal bowel sounds Skin General skin exam: no rashes or lesions noted Neuro General: patient oriented x3, no focal motor deficits and No confusion Extrem General: Yes full ROM Psych Appearance: grossly normal Assessment and Plan Assessment & Plan (1) Physical exam: Code(s): Z00.00 - Encounter for general adult medical examination without abnormal findings Plan: Repeat in a year Orders: Orders Lipid Panel Today E78.5 - Hyperlipidemia, unspecified Vitamin D 25-OH Total Today E55.9 - Vitamin D deficiency, unspecified Comprehensive [place]. Panel Fast Today Z00.00 - Encounter for general adult medical examination without abnormal findings Referrals Ophthalmology Referral H53.8 - Other visual disturbances Medications: Refilled cholecalciferol (vitamin D3) 25 mcg PO DAILY 90 caps 0RF 90 days docusate sodium 100 mg PO BEDTIME 90 caps 4RF K59.00 - Constipation, unspecified Coding Level of Care Code Est Pt Prev Care 40-64y(44778) Diagnoses Physical exam Z00.00 Time Spent (min) 33
== END 2022-09-06 10:35 | disposition home or self-care (01) ==
PROVIDERS: PCP Internal Medicine; Visit Provider Internal Medicine
DX: Z00.00 Encounter for general adult medical examination without abnormal findings (principal)
CPT/HCPCS: 99396

== ENCOUNTER 2022-11-19 09:14 | Outpatient (REF) | payer OTHER, SELFPAY ==
--- NOTE | ~2022-11-19 | US_ITS ---
EXAMINATION: US RETROPERITONEAL LIMITED (RENAL ONLY) CLINICAL INFORMATION: Calculus of kidney. COMPARISON: CT abdomen and pelvis 06/27/2022. Ultrasound retroperitoneal limited (renal only) 11/23/2021 and 10/03/2020. X-ray abdomen KUB 12/23/2013. TECHNIQUE: Real-time imaging of the kidneys. FINDINGS: RIGHT KIDNEY: 10.4 x 4.4 x 4.8 cm (SAG x AP x TRV). The kidney is normal in size, contour, and echogenicity. Renal cortical thickness is normal. No focal parenchymal lesions or hydronephrosis. 0.3 x 0.2 x 0.2 cm nonobstructing calculus is seen in the mid to lower pole. LEFT KIDNEY: 11.5 x 5.5 x 4.5 cm (SAG x AP x TRV). The kidney is normal in size, contour, and echogenicity. Renal cortical thickness is normal. No focal parenchymal lesions or hydronephrosis. 0.3 x 0.2 x 0.2 cm nonobstructing calculus is seen in the lower pole. There is mild fullness of the renal pelvis, a normal variant. US/US renal BI IMPRESSION: Small bilateral nonobstructing renal calculi.
== END 2022-11-19 09:15 | disposition home or self-care (01) ==
LOC: HO.US 09:14
PROVIDERS: PCP Internal Medicine; Visit Provider Urology
DX: N20.0 Calculus of kidney (principal)
CPT/HCPCS: 76775

== ENCOUNTER 2022-12-03 09:21 | Outpatient (AMB) | payer OTHER, SELFPAY ==
--- NOTE | 2022-12-03 09:25 | A.OFFVIS_ITS ---
Intake Intake Visit Reasons: follow up stones/US (SET) Intake Note: Patient presents today for a follow-up on Kidney Stones & US Results, completed on 11/19/2022: Meds- None Allergies to Antibiotic- No Known Allergies Blood Thinner- None Spa Therapist Required: No Accompanied by: Self / Same As Patient Allergies fenofibrate Adverse Reaction (Mild, Verified 12/03/22 09:25) hair loss Medication List - Last Reconciled 12/03/22 by Christin Morales MD cholecalciferol (vitamin D3) 25 mcg PO DAILY 90 days docusate sodium 100 mg PO BEDTIME fluticasone propionate 50 mcg/actuation (Flonase Allergy Relief) 1 spray intranasal DAILY lorazepam 1 mg PO BID PRN 30 days meclizine 25 mg PO TID PRN methylcellulose (laxative) (Citrucel) 500 mg PO DAILY omeprazole 20 mg PO DAILY pyridoxine (vitamin B6) 100 mg PO DAILY tramadol 50 mg PO Q6H PRN HPI HPI Comments History of Present Illness Details Sulma is a 52-year-old female who presents today to the office for a follow-up. 12/03/22? She is followed today for kidney stones, and US results. She has seen Curtis Rae on 06/02/21 for nephrolithiasis. Patient was started on Vitamin B6 daily at that time. She was encouraged to continue with adequate amount of water intake and to squeeze lemon juice in to some of her glasses of water. Repeat renal US was ordered during that time.? I reviewed the renal US results from 11/19/22 revealed small bilateral nonobstructing renal calculi. 3 mm stone in the right kidney, and 3 mm stone in the left kidney. I reviewed the CAT scan of the abdomen/pelvis from 06/27/22 revealed 2 mm left kidney stone visualized. She has been doing well since her last visit. She states that she does have occasional left sided flank pain. She admits that she does not consume adequate amount of fluids. I have discussed further evaluation with 24-hour urine collection. I will renew the vitamin B6 100 daily. 12/03/22: Evaluation today?UA? leukocyte s: negative; blood: negative. 12/03/22: Plan: Ordered 24-hour urine collection test today in the office. Patient was encouraged to take adequate amount of fluids. Follow-up in 12 weeks. [facility] Medical History Constipation by delayed colonic transit Left sided sciatica CHASE (generalized anxiety disorder) Mild recurrent major depression Left breast mass Depression with anxiety Family history of colon cancer Seasonal allergic rhinitis due to pollen Hypovitaminosis D GERD (gastroesophageal reflux disease) Surgical History Hx of colonoscopy History of esophagogastroduodenoscopy (EGD) H/O cervical polypectomy H/O lithotripsy Family History Father Hypercholesteremia Mother Hypertension Maternal Grandmother Hypertension CAD (coronary artery disease) Maternal Grandfather No problems noted. Maternal Aunt Breast cancer Diabetes Son No problems noted. Paternal Grandfather No problems noted. Paternal Grandmother No problems noted. Social History Housing: Apartment Alcohol intake: current Alcohol intake frequency: holidays/special occasions only Alcohol type: hard liquor Patient Tobacco Use Status: Never used Tobacco e-Cigarette/Vaping Use: Never Used Second Hand Smoke Exposure: No service: No Current occupational status: unemployed Cognitive needs: No Hearing needs: No Vision needs: No Female Reproductive History Menstrual Age of Menarche: 13 Review of Systems Const All systems reviewed & are unremarkable except as noted in HPI and below Reports no additional complaints Eyes Reports no additional complaints ENT Reports no additional complaints Card Denies dyspnea Resp Denies cough and Denies dyspnea GI Reports no additional complaints Reports no additional complaints Musc Reports no additional complaints Skin/Breast Denies rash and Denies unusual bruising Neuro Reports no additional complaints Psych Reports no additional complaints Endo Reports no additional complaints Mukesh/Lymph Reports no additional complaints Aller/Immun Reports no additional complaints Physical Exam Const General: cooperative, healthy appearing and no acute distress Orientation/consciousness: patient oriented x3 HEENT Head: Yes normal to inspection, Yes normocephalic and Yes atraumatic Eyes Conjunctivae: conjunctivae normal Neck Neck: Yes normal visual inspection and Yes trachea midline Chest Chest palpation & inspection: normal inspection of the chest Resp Effort & Inspection: normal respiratory effort Cardio Rate: regular rate GI Inspection: Yes normal to inspection Skin General skin exam: no rashes or lesions noted Neuro General: patient oriented x3 Extrem General: No edema Psych Appearance: grossly normal Results AMB Urinalysis, Automated UA Leukoctes 0 Lisa/uL Last Edit by ELISABETH Bo on 12/03/22 09:34 UA Nitrite Negative Last Edit by ELISABETH Bo on 12/03/22 09:34 UA Urobilinogen 0.2 mg/dL Last Edit by ELISABETH Bo on 12/03/22 09:3 4 UA Protein 15 mg/dL Last Edit by ELISABETH Bo on 12/03/22 09:34 UA pH 8.5 Last Edit by ELISABETH Bo on 12/03/22 09:34 UA Blood 0 Ross/uL Last Edit by ELISABETH Bo on 12/03/22 09:34 UA Specific [place] 1.015 Last Edit by ELISABETH Bo on 12/03/22 09: 34 UA Ketone Negative Last Edit by ELISABETH Bo on 12/03/22 09:34 UA Bilirubin 0 mg/dL Last Edit by ELISABETH Bo on 12/03/22 09:34 UA Glucose 0 mg/dL Last Edit by ELISABETH Bo on 12/03/22 09:34 Results Reviewed Results Reviewed: Laboratory Last Values Urine pH (Auto) 8.5 12/03/22 09:26 Specific [place] (Auto) 1.015 12/03/22 09:26 Urine Protein (Auto) 15 mg/dL 12/03/22 09:26 Glucose (UA)(Auto) 0 mg/dL 12/03/22 09:26 Urine Ketones (Auto) Negative 12/03/22 09:26 Urine Blood (Auto) 0 Ross/uL 12/03/22 09:26 Urine Nitrite (Auto) Negative 12/03/22 09:26 Urine Bilirubin (Auto) 0 mg/dL 12/03/22 09:26 Urine Urobilinogen (Auto) 0.2 mg/dL 12/03/22 09:26 Leukocyte Esterase (Auto) 0 Lisa/uL 12/03/22 09:26 Date of Service: 11/19/22 EXAMINATION:? US RETROPERITONEAL LIMITED (RENAL ONLY) CLINICAL INFORMATION: Calculus of kidney. COMPARISON:? CT abdomen and pelvis 06/27/2022. Ultrasound retroperitoneal limited (renal only) 11/23/2021 and 10/03/2020. X-ray abdomen KUB 12/23/2013. FINDINGS: RIGHT KIDNEY: 10.4 x 4.4 x 4.8 cm (SAG x AP x TRV). The kidney is normal in size, contour, and echogenicity. Renal cortical thickness is normal. No focal parenchymal lesions or hydronephrosis. 0.3 x 0.2 x 0.2 cm nonobstructing calculus is seen in the mid to lower pole. LEFT KIDNEY: 11.5 x 5.5 x 4.5 cm (SAG x AP x TRV). The kidney is normal in size, contour, and echogenicity. Renal cortical thickness is normal. No focal parenchymal lesions or hydronephrosis. 0.3 x 0.2 x 0.2 cm nonobstructing calculus is seen in the lower pole. There is mild fullness of the renal pelvis, a normal variant. IMPRESSION:? Small bilateral nonobstructing renal calculi. Assessment & Plan Assessment & Plan (1) Nephrolithiasis: Code(s): N20.0 - Calculus of kidney Plan Ordered 24-hour urine collection test today in the office. Patient was encouraged to take adequate amount of fluids. Follow-up in 12 weeks. Orders: Orders AMB Urinalysis Automated Today Z13.9 - Encounter for screening, unspecified Medications: New pyridoxine (vitamin B6) 100 mg PO DAILY 90 tabs 3RF Patient Instructions: The patient had an opportunity to ask questions regarding treatment plan. All questions were answered. Imaging, Laboratory studies and physical exam results were discussed and reviewed in detail. No major barriers to understanding were i dentified. The patient expressed understanding and agreement with the above treatment plan.? ? ? The patient is aware they should contact our office by phone for worsening of their current condition or the appearance of new symptoms. Compliance is encouraged with any medications and followup testing that is ordered.? ? ? It is a privilege to be allowed the opportunity to participate in the urologic care of your patient. If you have any questions or concerns regarding treatment for the above conditions please do not hesitate to contact me. The office telephone contact is [phone].? ? ? This note is constructed in part using voice recognition software. While every effort has been made to ensure accuracy fire and explosion investigator errors may have been included.? ? ? Yours sincerely,? ? ? Christin Morales MD? Coding Level of Care Code Est Pt Level 3 (08322) Diagnoses Nephrolithiasis N20.0
== END 2022-12-03 09:50 | disposition home or self-care (01) ==
PROVIDERS: PCP Internal Medicine; Visit Provider Urology
DX: Z13.9 Encounter for screening, unspecified (principal); N20.0 Calculus of kidney
CPT/HCPCS: 99213

== ENCOUNTER → 2022-12-03 09:21 | Outpatient (BNVA) | payer OTHER, SELFPAY | PROVIDERS: Visit Provider Urology | DX: N20.0 Calculus of kidney (principal) | CPT/HCPCS: 81003; 99212 ==

== ENCOUNTER 2023-03-28 08:46 | Outpatient (REF) | payer OTHER, SELFPAY | END 2023-03-28 08:47 | disposition home or self-care (01) | LOC: HO.MAMMO 08:46 | PROVIDERS: PCP Internal Medicine; Visit Provider Internal Medicine | DX: Z12.31 Encounter for screening mammogram for malignant neoplasm of breast (principal) | CPT/HCPCS: 77063; 77067 ==

== ENCOUNTER → 2023-03-28 09:00 | Outpatient (BNV) | payer OTHER, SELFPAY | PROVIDERS: PCP Internal Medicine; Visit Provider Radiology Diagnostic Radiology | DX: Z12.31 Encounter for screening mammogram for malignant neoplasm of breast (principal) | CPT/HCPCS: 77063; 77067 ==

== ENCOUNTER 2023-09-11 10:15 | Outpatient (AMB) | payer OTHER, SELFPAY ==
--- NOTE | 2023-09-11 10:21 | MHC.PC.OV ---
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 Accompanied by: Self / Same As Patient Allergies fenofibrate Adverse Reaction (Mild, Verified 09/11/23 10:29) hair loss Medication List - Last Reconciled 09/11/23 by Kelsi Perdomo MD cholecalciferol (vitamin D3) 25 mcg PO DAILY 90 days docusate sodium 100 mg PO BEDTIME fluticasone propionate 50 mcg/actuation (Flonase Allergy Relief) 1 spray intranasal DAILY lorazepam 1 mg PO BID PRN 30 days methylcellulose (laxative) (Citrucel) 500 mg PO DAILY omeprazole 20 mg PO DAILY pyridoxine (vitamin B6) 100 mg PO DAILY Tobacco use date assessed: 09/11/23 Dental Screening Dental Screen Date: 09/11/23 Did you have a dental visit in the last 12 months?: Yes Did you have a dental problem in the last 6 months where you did not have access to dental care?: No Was dental information given to patient?: Patient has dentist HPI HPI Comments History of Present Illness Details This is a 53-year-old female with mild recurrent major depression that comes for her physical exam. Depression is in remission. Mammogram done 2023 was normal. Pap smear done 2022 was normal. Colonoscopy done 2020 showed tubular adenoma and needed to be repeated in 2023. Will be refer through open access. No acute complaints. [facility] Medical History Constipation by delayed colonic transit Left sided sciatica CHASE (generalized anxiety disorder) Mild recurrent major depression Left breast mass Depression with anxiety Family history of colon cancer Seasonal allergic rhinitis due to pollen Hypovitaminosis D GERD (gastroesophageal reflux disease) Surgical History Hx of colonoscopy History of esophagogastroduodenoscopy (EGD) H/O cervical polypectomy H/O lithotripsy Family History (Updated 09/11/23 @ 10:37 by Kelsi Perdomo MD) Father Hypercholesteremia Mother Hypertension Maternal Grandmother Hypertension CAD (coronary artery disease) Maternal Grandfather No problems noted. Maternal Aunt Breast cancer Diabetes Son No problems noted. Paternal Grandfather No problems noted. Paternal Grandmother No problems noted. Maternal Uncle Colon cancer, Onset Age: 60 Unknown Colon cancer, Onset Age: 42 Social History Housing: Apartment Alcohol intake: current Alcohol intake frequency: holidays/special occasions only Alcohol type: hard liquor Patient Tobacco Use Status: Never used Tobacco e-Cigarette/Vaping Use: Never Used Second Hand Smoke Exposure: No service: No Current occupational status: unemployed Cognitive needs: No Hearing needs: No Vision needs: No Female Reproductive History Menstrual Age of Menarche: 13 Questionnaire PHQ-9 Over the last 2 weeks, how often have you been bothered by any of the following problems? 1. Little interest or pleasure in doing things: not at all 2. Feeling down, depressed, or hopeless: not at all 3. Trouble falling or staying asleep, or sleeping too much: not at all 4. Feeling tired or having little energy: not at all 5. Poor appetite or overeating: not at all 6. Feeling bad about yourself - or that you are a failure or have let yourself or your family down: not at all 7. Trouble concentrating on things, such as reading the newspaper or watching television: not at all 8. Moving or speaking so slowly that other people could have noticed. Or the opposite - being so fidgety or restless that you have been moving around a lot more than usual: not at all 9. Thoughts that you would be better off or of hurting yourself in some way: not at all Total score: 0 Depression Screening Interpretation: Negative Depression Screening Done: Yes 36271 - PHQ-9 Billing: Yes Source: Developed by Drs. Lorenzo Dillon, Nathalie Cheek, Lc Blackwood and colleagues, with an educational junie from [employer]. Thrive Questionnaire Date Thrive assessed: 09/11/23 I am a: Patient What is your living situation today?: I have a steady place to live Within the past 12 months, did the food you bought not last and you didn't have the money to get more?: Never true Within the past 12 months, did you worry whether your food would run out before you got money to buy more?: Never true Do you have trouble paying for medicines?: No Do you have trouble getting transportation to medical appointments?: No Do you have trouble paying your heating and electricity bill?: No Do you have trouble taking care of your child, family member or friend?: No Do you have trouble with day-to-day activities such as bathing, preparing meals, shopping, managing finances, etc.?: No Are you currently unemployed and looking for a job?: No Are you interested in more education?: No Please select the resources that you would like help with: None Currently or been in a relationship where the following occur: No concerns reported THRIVE Score: 0 AUDIT C Alcohol Use Questionnaire (AUDIT-C) 1. How often do you have a drink containing alcohol?: Monthly or less 2. How many drinks containing alcohol do you have on a typical day when you are drinking?: 1 or 2 3. How often do you have six or more drinks on one occasion?: Never Total Score: 1 Score Reviewed/Action Taken: No CHASE-7 AMB Questionnaire CHASE-7 Date CHASE - 7 assessed: 09/11/23 Feeling nervous, anxious, or on edge: 0 = Not at all Not being able to stop or control worryin = Not at all Worrying too much about different things: 0 = Not at all Trouble relaxin = Not at all Being so restless that it is hard to sit still: 0 = Not at all Becoming easily annoyed or irritable: 0 = Not at all Feeling afraid as if something awful might happen: 0 = Not at all Total CHASE-7 score (0-4 normal; 5-9 mild; 10-14 moderate; 15-21 severe): 0 Source: Developed by Drs. Lorenzo Dillon, Nathalie Cheek, Lc Blackwood and colleagues, with an educational junie from [employer]. CHASE-7 Assessment Billing CHASE-7 Assessment Tool: CHASE-7 Assessment 14058 Review of Systems Const All systems reviewed & are unremarkable except as noted in HPI and below Card Denies chest pain at rest, Denies chest pain with activity, Denies edema, Denies irregular heart rhythm, Denies claudication, Denies dyspnea, Denies dyspnea on exertion, Denies orthopnea, Denies paroxysmal nocturnal dyspnea and Denies slow heart rate Resp Denies cough, Denies dyspnea and Denies dyspnea on exertion GI Denies abdominal pain, Denies change in bowel habits, Denies excessive flatus, Denies nausea and Denies vomiting Neuro Denies behavioral changes and Denies lack of coordination Psych Denies behavioral changes Physical exam (Primary Care) Vital Signs: Last Vital Signs BP 110/80 09/11/23 10:23 BMI result Body Mass Index 30.2 BMI Assessment/Plan discussion: High BMI High, discussed plan: lifestyle, weight reduction, dietary and physical activity Tobacco/Smoking Status: Tobacco use Status Tobacco use date assessed 09/11/23 09/11/23 10:29 Patient Tobacco Use Status Never used Tobacco 09/11/23 10:26 e-Cigarette/Vaping Use Never Used 09/11/23 10:26 PHQ-9: PHQ-9 Score PHQ-9: Total score 0 09/11/23 10:32 Depression Screening Interpretation: Negative Thrive Assessment: Date of Thrive Assessment Date Thrive assessed 09/11/23 09/11/23 10:26 Currently or been in a relationship where the following occur: No concerns reported [facility] Head: Yes normal to inspection, Yes normocephalic and Yes atraumatic Ears: external ears normal Eyes General: appearance normal, both eyes and all related structures Eyelids: Yes eyelids normal Conjunctivae: conjunctivae normal Neck Neck: Yes normal visual inspection and Yes supple Resp Effort & Inspection: normal respiratory effort Auscultation: clear to auscultation bilaterally Cardio Jugular venous distension: no JVD Rate: regular rate Rhythm: regular rhythm Heart sounds: S1 normal heart sound present and S2 normal heart sound present GI Inspection: Yes normal to inspection Palpation (GI): Soft to palpation and nontender Auscultation: normal bowel sounds Rectal Exam - Female: External hemorrhoid(s) present Skin General skin exam: no rashes or lesions noted Neuro General: no focal motor deficits Extrem General: Yes full ROM Psych Appearance: grossly normal Assessment and Plan Assessment & Plan (1) Physical exam: Code(s): Z00.00 - Encounter for general adult medical examination without abnormal findings Plan: Repeat in a year. (2) Mild recurrent major depression: Code(s): F33.0 - Major depressive disorder, recurrent, mild Plan: In remission. Orders: Orders Vitamin D 25-OH Total Today E55.9 - Vitamin D deficiency, unspecified Comprehensive [place]. Panel Fast Today Z00.00 - Encounter for general adult medical examination without abnormal findings Complete Blood Count Auto Diff Today D64.9 - Anemia, unspecified IRON PROFILE Today D64.9 - Anemia, unspecified Lipid Panel Today E78.5 - Hyperlipidemia, unspecified Referrals Open Access Screening Colonoscopy Referral Z12.11 - Encounter for screening for malignant neoplasm of colon Medications: Refilled pyridoxine (vitamin B6) 100 mg PO DAILY 90 tabs 3RF cholecalciferol (vitamin D3) 25 mcg PO DAILY 90 caps 0RF 90 days Coding Level of Care Code Est Pt Prev Care 40-64y(27552) Diagnoses Physical exam Z00.00 Mild recurrent major depression F33.0 Additional Codes CHASE-7 Assessment Billing - CHASE-7 Assessment Tool: CHASE-7 Assessment 67178 ([id number]) Time Spent (min) 32
[2023-09-11 10:23] VITALS: BP 110/80; BMI 30.2
== END 2023-09-11 10:46 | disposition home or self-care (01) ==
PROVIDERS: PCP Internal Medicine; Visit Provider Internal Medicine
DX: Z00.00 Encounter for general adult medical examination without abnormal findings (principal); F33.0 Major depressive disorder, recurrent, mild
CPT/HCPCS: 99396

== ENCOUNTER 2023-12-02 08:59 | Outpatient (AMB) | payer OTHER, SELFPAY ==
[2023-12-02 09:02] VITALS: BP 110/80; BMI 30.7
--- NOTE | 2023-12-02 09:02 | A.OFFPC_ITS ---
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 Accompanied by: Self / Same As Patient Allergies fenofibrate Adverse Reaction (Mild, Verified 12/02/23 09:07) hair loss Medication List - Last Reconciled 12/02/23 by Kelsi Perdomo MD cholecalciferol (vitamin D3) 25 mcg PO DAILY 90 days docusate sodium 100 mg PO BEDTIME fluticasone propionate 50 mcg/actuation (Flonase Allergy Relief) 1 spray intranasal DAILY lorazepam 1 mg PO BID PRN 30 days methylcellulose (laxative) (Citrucel) 500 mg PO DAILY omeprazole 20 mg PO DAILY pyridoxine (vitamin B6) 100 mg PO DAILY Tobacco use date assessed: 09/11/23 Dental Screening Dental Screen Date: 09/11/23 HPI HPI Comments History of Present Illness Details This is a 53-year-old female with mild recurrent major depression, anxiety, GERD and constipation that comes today complaining of left breast pain at 06:00 o'clock that started over a month ago. She declines any nipple retraction or nipple discharge. No breast masses palpated. Had a mammogram 2023 which was normal. Has family history of breast cancer. Will order mammogram and ultrasound of the breast. Depression has been in remission. Anxiety stable with benzodiazepines as needed. GERD stable with PPIs as needed. Constipation well controlled with docusate as needed. No chest pain or shortness on breath. [facility] Medical History (Updated 12/02/23 @ 09:17 by Kelsi Perdomo MD) Constipation by delayed colonic transit Left sided sciatica CHASE (generalized anxiety disorder) Mild recurrent major depression Left breast mass Depression with anxiety Family history of colon cancer Seasonal allergic rhinitis due to pollen Hypovitaminosis D GERD (gastroesophageal reflux disease) Surgical History Hx of colonoscopy History of esophagogastroduodenoscopy (EGD) H/O cervical polypectomy H/O lithotripsy Family History Father Hypercholesteremia Mother Hypertension Maternal Grandmother Hypertension CAD (coronary artery disease) Maternal Grandfather No problems noted. Maternal Aunt Breast cancer Diabetes Son No problems noted. Paternal Grandfather No problems noted. Paternal Grandmother No problems noted. Maternal Uncle Colon cancer, Onset Age: 60 Unknown Colon cancer, Onset Age: 42 Social History Housing: Apartment Alcohol intake: current Alcohol intake frequency: holidays/special occasions only Alcohol type: hard liquor Patient Tobacco Use Status: Never used Tobacco e-Cigarette/Vaping Use: Never Used Second Hand Smoke Exposure: No service: No Current occupational status: unemployed Cognitive needs: No Hearing needs: No Vision needs: No Female Reproductive History Menstrual Age of Menarche: 13 Questionnaire Thrive Questionnaire Date Thrive assessed: 09/11/23 Are you currently unemployed and looking for a job?: No CHASE-7 AMB Questionnaire CHASE-7 Date CHASE - 7 assessed: 09/11/23 Source: Developed by Drs. Lorenzo Dillon, Nathalie Cheek, Lc Blackwood and colleagues, with an educational junie from [employer]. Review of Systems Const All systems reviewed & are unremarkable except as noted in HPI and below Card Denies chest pain at rest, Denies chest pain with activity, Denies edema, Denies irregular heart rhythm, Denies claudication, Denies dyspnea, Denies dyspnea on exertion, Denies orthopnea, Denies paroxysmal nocturnal dyspnea and Denies slow heart rate Resp Denies cough, Denies dyspnea and Denies dyspnea on exertion GI Denies abdominal pain, Denies change in bowel habits, Denies excessive flatus, Denies nausea and Denies vomiting Denies urinary incontinence, Denies urinary hesitancy and Denies urinary urgency Musc Denies atrophy, Denies deformity and Denies limited range of motion Skin/Breast Reports breast pain Physical exam (Primary Care) BMI result Body Mass Index 30.7 BMI Assessment/Plan discussion: High BMI High, discussed plan: lifestyle, weight reduction, dietary and physical activity Tobacco/Smoking Status: Tobacco use Status Tobacco use date assessed 09/11/23 12/02/23 09:05 Patient Tobacco Use Status Never used Tobacco 12/02/23 09:05 e-Cigarette/Vaping Use Never Used 12/02/23 09:05 Thrive Assessment: Date of Thrive Assessment Date Thrive assessed 09/11/23 12/02/23 09:05 Chest Breast/axilla inspection: normal inspection of the breasts and normal inspection of the axillae Breast/axilla palpation: normal palpation of the axillae and abnormal palpation of the breast (left breast pain at 6 o'clock) Resp Effort & Inspection: normal respiratory effort Auscultation: clear to auscultation bilaterally Cardio Jugular venous distension: no JVD Rate: regular rate Rhythm: regular rhythm Heart sounds: S1 normal heart sound present and S2 normal heart sound present Extrem General: Yes full ROM Office Procedures Flu Questionnaire Does the patient have a severe egg allergy?: No Immunizations Fluarix Triv [id number] (PF) 45 mcg (15 mcg x 3)/0.5 mL IM syringe Performing Provider: Kelsi Perdomo MD [place] [facility] [facility] [place] [facility] Documented (not given) by: ELISABETH Landers on 12/02/23 09:06 Reason Not Given: Patient Refused Coding Level of Care Code Est Pt Level 4 (68600) Complex EM visit Add On G2211 Diagnoses Breast pain, left N64.4 Mild recurrent major depression F33.0 CHASE (generalized anxiety disorder) F41.1 Constipation by delayed colonic transit K59.01 Gastroesophageal reflux disease, unspecified whether esophagitis present K21.9 Esophagitis presence: esophagitis presence not specified Time Spent (min) 22 Assessment & Plan Assessment & Plan (1) Breast pain, left: Comment: At 6 o'clock Code(s): N64.4 - Mastodynia Category: Medical Plan: Ultrasound of the breast and diagnostic mammogram ordered. (2) Mild recurrent major depression: Code(s): F33.0 - Major depressive disorder, recurrent, mild Category: Medical Plan: In remission. (3) CHASE (generalized anxiety disorder): Code(s): F41.1 - Generalized anxiety disorder Category: Medical Plan: Continue benzodiazepines as needed. Patient aware that can cause addiction and sedation. (4) Constipation by delayed colonic transit: Code(s): K59.01 - Slow transit constipation Category: Medical Plan: Continue docusate as needed. (5) GERD (gastroesophageal reflux disease): Code(s): K21.9 - Gastro-esophageal reflux disease without esophagitis Category: Medical Qualifiers: Esophagitis presence: esophagitis presence not specified Qualified Code(s): K21.9 - Gastro-esophageal reflux disease without esophagitis Plan: Continue PPIs as needed. Orders: Orders Influenza [id number] Immunization Today Z23 - Encounter for immunization MM diagnostic mammo BI Today N64.4 - Mastodynia US breast LT complete Today N64.4 - Mastodynia
== END 2023-12-02 09:16 | disposition home or self-care (01) ==
PROVIDERS: PCP Internal Medicine; Visit Provider Internal Medicine
DX: N64.4 Mastodynia (principal); F33.0 Major depressive disorder, recurrent, mild; F41.1 Generalized anxiety disorder; K59.01 Slow transit constipation; K21.9 Gastro-esophageal reflux disease without esophagitis; Z23 Encounter for immunization

== ENCOUNTER → 2023-12-02 08:59 | Outpatient (BNVA) | payer OTHER, SELFPAY | PROVIDERS: PCP Internal Medicine; Visit Provider Internal Medicine | DX: N64.4 Mastodynia (principal); F33.0 Major depressive disorder, recurrent, mild; F41.1 Generalized anxiety disorder; K59.01 Slow transit constipation; K21.9 Gastro-esophageal reflux disease without esophagitis | CPT/HCPCS: 90471; 99212 ==

== ENCOUNTER 2024-01-21 09:53 | Outpatient (REF) | payer OTHER, SELFPAY ==
--- NOTE | ~2024-01-21 | US_ITS ---
EXAMINATION: MM DIAGNOSTIC DIGITAL BREAST TOMOSYNTHESIS, BILATERAL Limited left ultrasound. CLINICAL INFORMATION: Left breast fullness and pain lower central breast. COMPARISON: Mammography: Comparison is made with relevant prior exams. TECHNIQUE: Digital breast mammography with tomosynthesis is performed in both the craniocaudal and mediolateral oblique views along with computer-aided detection (CAD). Limited left ultrasound. FINDINGS: The breasts are heterogeneously dense, which may obscure small masses (ACR BI-RADS breast composition Category c). Triangular marker lower central left breast denoting site of pain without underlying abnormality. There are no significant masses, abnormal calcifications, or other abnormalities. Targeted color Doppler ultrasound scanning from 2-8 o'clock demonstrates normal fibroglandular breast tissue. There is no sonographic abnormality to account for the patient's left breast pain. Results are provided to the patient at time of visit by the technologist. US/US breast LT limited mamm only IMPRESSION: No mammographic evidence of malignancy. No mammographic or sonographic abnormality to account for the patient's left breast pain. Recommend clinical evaluation and follow-up. ASSESSMENT: BI-RADS BI-RADS 1 - Negative RECOMMENDATION: 1 year F/U This patient's information was entered into a reminder system with a target due date for their next mammogram. Electronically signed by: Liza Boucher DO 01/21/2024 10:49 AM RACHEL
== END 2024-01-21 09:54 | disposition home or self-care (01) ==
LOC: HO.MAMMO 09:53
PROVIDERS: PCP Internal Medicine; Visit Provider Internal Medicine
DX: N64.4 Mastodynia (principal)
CPT/HCPCS: 76642; 77062; 77066

== ENCOUNTER → 2024-01-21 10:00 | Outpatient (BNV) | payer OTHER, SELFPAY | PROVIDERS: PCP Internal Medicine; Visit Provider Internal Medicine | DX: N64.4 Mastodynia (principal); R92.2 Inconclusive mammogram | CPT/HCPCS: 76642; 77062; 77066 ==

== ENCOUNTER 2024-07-20 09:56 | Outpatient (AMB) | payer OTHER, SELFPAY ==
--- NOTE | 2024-07-20 10:03 | MHC.OFFVIS ---
Intake Visit Reasons: follow up/Nephrolithiasis Intake Note: Patient presents today for a follow-up/Nephrolithiasis Urology Meds- None Allergies to Antibiotic- No Known Allergies Blood Thinner- None Machine Feed Operator Required: No Accompanied by: Self / Same As Patient Allergies fenofibrate Adverse Reaction (Mild, Verified 07/20/24 10:05) hair loss Medication List - Last Reconciled 07/20/24 by Christin Morales MD cholecalciferol (vitamin D3) 25 mcg PO DAILY 90 days docusate sodium 100 mg PO BEDTIME fluticasone propionate 50 mcg/actuation (Flonase Allergy Relief) 1 spray intranasal DAILY lorazepam 1 mg PO BID PRN 30 days methylcellulose (laxative) (Citrucel) 500 mg PO DAILY mirabegron ER (Myrbetriq) 25 mg PO DAILY omeprazole 20 mg PO DAILY pyridoxine (vitamin B6) 100 mg PO DAILY HPI Comments Details: 07/20/24--Sulma is a 54-year-old female who has history of kidney stones. She was last seen in the office November 2022. She had a renal ultrasound at that time that was reviewed noting small bilateral kidney stones date of ultrasound was 11/19/2022. Today's urinalysis reviewed negative for blood negative for leukocytes. History of Present Illness The patient is a 54-year-old female presenting with follow-up for kidney stones and has new complaints of urinary incontinence. She was previously diagnosed with bilateral renal calculi, which were last observed to be small in an ultrasound from November 2022. Additionally, she has a reports a history of uterine polyps and has reported occasional vaginal bleeding associated with this condition. The patient experiences stress urinary incontinence, characterized by leakage upon coughing. Also during sudden urges that cannot always be controlled. Her symptoms include leakage triggered by coughing, laughing, and turning on water. Although she feels an increase in urgency, moments of frequency and urgency do occur without immediate access to the restroom, leading to episodes of incontinence. I discussed trialing Myrbetriq 25 mg once daily to address bladder spasms, explaining potential side effects. I recommended Kegel exercises and lifestyle changes, including potential weight loss, to alleviate pelvic pressure. Imaging will be ordered to assess the current status of renal stones and the bladder. The follow-up will allow examination of any anatomical issues through with cystoscopy. I provided reassurance that the procedure involves minimal discomfort due to the application of topical anesthetic before examination. Plan Myrbetriq 25 mg daily. Discussed Kegel's and lifestyle changes including weight loss. Renal and bladder ultrasound. Follow-up for pelvic exam and office cystoscopy. Urinary Symptoms Review - Stress urinary incontinence with episodes triggered by coughing and laughing - Urge incontinence with inability to reach the bathroom in time - Leakage occurring upon exposure to auditory cues such as running water Results - Renal ultrasound (11/19/22): Small bilateral kidney stones - Urinalysis: Negative for blood and leukocytes 12/03/22? She is followed today for kidney stones, and US results. She has seen Curtis Rae on 06/02/21 for nephrolithiasis. Patient was started on Vitamin B6 daily at that time. She was encouraged to continue with adequate amount of water intake and to squeeze lemon juice in to some of her glasses of water. Repeat renal US was ordered during that time.? I reviewed the renal US results from 11/19/22 revealed small bilateral nonobstructing renal calculi. 3 mm stone in the right kidney, and 3 mm stone in the left kidney. She has been doing well since her last visit. She states that she does have occasional left sided flank pain. She admits that she does not consume adequate amount of fluids. I reviewed the CAT scan of the abdomen/pelvis from 06/27/22 revealed 2 mm left kidney stone visualized. I have discussed further evaluation with 24-hour urine collection. I will renew the vitamin B6 100 daily. 12/03/22: Evaluation today?UA? leukocytes: negative; blood: negative. [facility] Medical History Constipation by delayed colonic transit Left sided sciatica CHASE (generalized anxiety disorder) Mild recurrent major depression Left breast mass Depression with anxiety Family history of colon cancer Seasonal allergic rhinitis due to pollen Hypovitaminosis D GERD (gastroesophageal reflux disease) Surgical History Hx of colonoscopy History of esophagogastroduodenoscopy (EGD) H/O cervical polypectomy H/O lithotripsy Family History Father Hypercholesteremia Mother Hypertension Maternal Grandmother Hypertension CAD (coronary artery disease) Maternal Grandfather No problems noted. Maternal Aunt Breast cancer Diabetes Son No problems noted. Paternal Grandfather No problems noted. Paternal Grandmother No problems noted. Maternal Uncle Colon cancer, Onset Age: 60 Unknown Colon cancer, Onset Age: 42 Social History Housing: Apartment Alcohol intake: current Alcohol intake frequency: holidays/special occasions only Alcohol type: hard liquor Patient Tobacco Use Status: Never used Tobacco e-Cigarette/Vaping Use: Never Used Second Hand Smoke Exposure: No service: No Current occupational status: unemployed Cognitive needs: No Hearing needs: No Vision needs: No Female Reproductive History Menstrual Age of Menarche: 13 Review of Systems Const All systems reviewed & are unremarkable except as noted in HPI and below Reports no additional complaints Eyes Reports no additional complaints ENT Reports no additional complaints Card Reports no additional complaints Resp Reports no additional complaints GI Reports no additional complaints Reports as per HPI Musc Reports no additional complaints Skin/Breast Reports system reviewed and no additional complaints, except as documented Neuro Reports no additional complaints Psych Reports no additional complaints Endo Reports no additional complaints Mukesh/Lymph Reports no additional complaints Aller/Immun Reports no additional complaints Results Reviewed Results Reviewed: Date of Service: 11/19/22 EXAMINATION:? US RETROPERITONEAL LIMITED (RENAL ONLY) CLINICAL INFORMATION: Calculus of kidney. COMPARISON:? CT abdomen and pelvis 06/27/2022. Ultrasound retroperitoneal limited (renal only) 11/23/2021 and 10/03/2020. X-ray abdomen KUB 12/23/2013. FINDINGS: RIGHT KIDNEY: 10.4 x 4.4 x 4.8 cm (SAG x AP x TRV). The kidney is normal in size, contour, and echogenicity. Renal cortical thickness is normal. No focal parenchymal lesions or hydronephrosis. 0.3 x 0.2 x 0.2 cm nonobstructing calculus is seen in the mid to lower pole. LEFT KIDNEY: 11.5 x 5.5 x 4.5 cm (SAG x AP x TRV). The kidney is normal in size, contour, and echogenicity. Renal cortical thickness is normal. No focal parenchymal lesions or hydronephrosis. 0.3 x 0.2 x 0.2 cm nonobstructing calculus is seen in the lower pole. There is mild fullness of the renal pelvis, a normal variant. IMPRESSION:? Small bilateral nonobstructing renal calculi. Assessment & Plan Assessment & Plan (1) Urinary urgency: Code(s): R39.15 - Urgency of urination Category: Medical (2) Urinary incontinence: Code(s): R32 - Unspecified urinary incontinence Category: Medical (3) BERNIE (stress urinary incontinence, female): Code(s): N39.3 - Stress incontinence (female) (male) Category: Medical (4) Nephrolithiasis: Code(s): N20.0 - Calculus of kidney Category: Medical Plan Plan Myrbetriq 25 mg daily. Discussed Kegel's and lifestyle changes including weight loss. Renal and bladder ultrasound. Follow-up for pelvic exam and office cystoscopy. Orders: Orders US retroperitoneal comp Today N39.3 - Stress incontinence (female) (male), R32 - Unspecified urinary incontinence, R39.15 - Urgency of urination Medications: New mirabegron ER (Myrbetriq) 25 mg PO DAILY 30 tabs 5RF Refilled pyridoxine (vitamin B6) 100 mg PO DAILY 90 tabs 3RF Patient Instructions: The patient had an opportunity to ask questions regarding treatment plan. The patient expressed understanding and agreement with the above treatment plan. The patient is aware they should contact our office by phone for worsening of their current condition or the appearance of new symptoms. Compliance is encouraged with any medications and followup testing that is ordered. It is a privilege to be allowed the opportunity to participate in the urologic care of your patient. If you have any questions or concerns regarding treatment for the above conditions please do not hesitate to contact me. The office telephone contact is [phone]. This note is constructed in part using voice recognition software. While every effort has been made to ensure accuracy rn utilization management um errors may have been included. Yours sincerely, Christin Morales MD Scribe Plan - Not visible on output: Patient was informed and verbally consented to the use of an ambient scribe for clinic note documentation during this visit. Coding Level of Care Code Est Pt Level 4 (11596) Complex EM visit Add On G2211 Diagnoses Urinary urgency R39.15 Urinary incontinence R32 BERNIE (stress urinary incontinence, female) N39.3 Nephrolithiasis N20.0
--- OUTSIDE RECORDS SUMMARY | 2024-07-20 10:45 | XMS_ITS | Patient Health Record ---
Author Organization [employer] [facility] Address [address] [place] [address] Care Team Providers Care Pediatrician Active Practice Name Role Phone ROBERTO PARIS Primary Care Provider Unavailab jhoana Maribel Avendaño Unavailable [phone] Reason For Referral No Information Medications Medication SIG (Take, Route, Fr equency, Duration) Notes Start Date End Date Status Omeprazole 10 MG 1 capsule 30 minutes before morning meal Orally PRN Active Methocarbamol 500 MG 1 tablet Orally PRN Active Ibuprofen 600 MG 1 tablet with food o r milk as needed Orally PRN Active Social History Tobacco Use: Social History Observation Description Date Details (start date - stop date) Never Smoker NA - NA Tobacco Use/Smoking Question Answer Notes Are you a nonsmoker Alcohol Screen (Audit-C) Question Answer Notes Did you have a drink containing alcohol in the p ast year? No Points 0 Interpretation Negative Sexual History Question Answer Notes Had sex in the past 12 months (vaginal, oral, or anal)? Yes with Men only Prevention strategies discussed: Other Have you ever had a Sexually transmitted disease ? No Tobacco use other than smoking: Question Answer Notes Are you an other tobacco user? No Problems Problem Type SNOMED Code ICD Code Onset Dates Problem Status W/U Status Risk Notes Problem Excessive and frequent menstruation (792556910) Excessive and frequent menstruation with regular cycle (N92.0) Active confirmed Problem Obesity, unspecified (E66.9) Active confirmed Problem Abnormal vaginal bleeding (529464180) Other specified abnormal uterine and vaginal bleeding (N93.8) Active confirmed Plan Of Treatment Pending Test Test Name Order Date Ultrasound : Sono Hystergram 12/04/2017 THIN PREP,HPV,OBIE IF HPV+/CYT-,CT/GC(>2 9YR)(SCRN) 12/04/2017 MM Digital Mammo Screening 12/04/2017 Medical (General) History Surgical History Surgery Date(Month/Year) lithotripsy for L calculus 2015 hysteroscopic polypectomy and D+C 9 Colonoscopy 11/12/18 Hospitalization History Reason Date(Month/Year) 1 Vaginal Delivery
== END 2024-07-20 10:56 | disposition home or self-care (01) ==
LOC: HO.HUSH 09:56
PROVIDERS: PCP Internal Medicine; Visit Provider Urology
DX: R39.15 Urgency of urination (principal); N39.3 Stress incontinence (female) (male); N20.0 Calculus of kidney
CPT/HCPCS: 99214; G2211

== ENCOUNTER → 2024-07-20 09:56 | Outpatient (BNVA) | payer OTHER, SELFPAY | PROVIDERS: PCP Internal Medicine; Visit Provider Urology | DX: R39.15 Urgency of urination (principal); N39.3 Stress incontinence (female) (male); N20.0 Calculus of kidney | CPT/HCPCS: 81003; 99212 ==

== ENCOUNTER 2024-09-02 11:19 | Outpatient (REF) | payer OTHER, SELFPAY ==
--- OUTSIDE RECORDS SUMMARY | 2024-09-02 12:11 | XMS_ITS | Patient Health Record ---
Author Organization [facility] Address [address] [place] [address] Care Team Providers Care Wire Coiler Machine Operator Name Role Phone Kelsi Belle Primary Care Provider Unavailab Mirza Juarez Jr Unavailable [phone] Reason For Referral No Information Medications Medication SIG (Take, Route, Fr equency, Duration) Notes Start Date End Date Status Omeprazole 40 MG 1 capsule Orally Once a day Active Problems Problem Type SNOMED Code ICD Code Onset Dates Problem Status W/U Status Risk Notes Problem [id number] Gastroesophageal reflux disease without esophagitis (K21.9) Active confirmed Plan Of Treatment Future Test Test Name Order Date UPPER GI ENDOSCOPY 06/16/2014 Insurance Providers Payer Name Payer Address Payer Phone Subscriber Number Group Number Insured Name Patient Relationship to Insured Coverage Start Date Coverage End Date [facility] [address] [address] [place], [place] [id number] PRISCILA MABRY Self - patient is the insured [facility] [address] [place] [address] [phone] [id number] PRISCILA MABRY Self - patient is the insured Medical (General) History Medical History History ICD Code Denies [place],DM,CVA,Lung disease,renal dise ase Surgical History Surgery Date(Month/Year) kidney stone removal
--- OUTSIDE RECORDS SUMMARY | 2024-09-02 12:12 | XMS_ITS | Patient Health Record ---
Author Organization [employer] [facility] Address [address] [place] [address] Care Team Providers Care Sec Reporting Consultant Name Role Phone ROBERTO PARIS Primary Care Provider Unavailab jhoana Maribel Avendaño Unavailable [phone] Reason For Referral No Information Medications Medication [...] Risk Notes Problem Excessive and frequent menstruation (027213839) Excessive and frequent menstruation with regular cycle (N92.0) Active confirmed Problem Obesity (267181498) Obesity, unspecified (E66.9) Active confirmed Problem Other specified abnormal uterine and vaginal bleeding [...]
== END 2024-09-02 11:20 | disposition home or self-care (01) ==
LOC: HO.HMGCX 11:19
PROVIDERS: PCP Internal Medicine; Visit Provider Urology
DX: Z13.89 Encounter for screening for other disorder (principal)

== ENCOUNTER 2024-09-18 10:45 | Outpatient (REF) | payer OTHER, SELFPAY ==
--- OUTSIDE RECORDS SUMMARY | 2024-09-18 10:53 | XMS_ITS | Patient Health Record ---
Author Organization [facility] Address [address] [place] [address] Care Team Providers Care Customer Service Sales Consultant Name Role Phone Kelsi Belle Primary Care Provider Unavailab Mirza Juarez Jr Unavailable [phone] Reason For Referral No Information Medications Medication SIG (Take, Route, Fr equency, Duration) Notes Start Date End Date Status Omeprazole 40 MG 1 capsule Orally Once a day Active Problems Problem Type SNOMED Code ICD Code Onset Dates Problem Status W/U Status Risk Notes Problem [id number] Gastroesophageal reflux disease without esophagitis (K21.9) Active confirmed Plan Of Treatment Future Test Test Name Order Date UPPER GI ENDOSCOPY 06/16/2014 Insurance Providers Payer Name Payer Address Payer Phone Subscriber Number Group Number Insured Name Patient Relationship to Insured Coverage Start Date Coverage End Date [facility] [address] [address] [place], [place] [id number] PRISCILA MABRY Self - patient is the insured [facility] [address] [place] [address] [id number] PRISCILA MABRY Self - patient is the insured Medical (General) History Medical History History ICD Code Denies [place],DM,CVA,Lung disease,renal dise ase Surgical History Surgery Date(Month/Year) kidney stone removal
--- OUTSIDE RECORDS SUMMARY | 2024-09-18 10:53 | XMS_ITS | Patient Health Record ---
Author Organization [employer] [facility] Address [address] [place] [address] Care Team Providers Care Hydramatic Mechanic Name Role Phone ROBERTO PARIS Primary Care Provider Unavailab jhonaa Kateryna Maribel Unavailable [phone] Reason For Referral No Information Medications Medication [...] Risk Notes Problem Excessive and frequent menstruation (322996304) Excessive and frequent menstruation with regular cycle (N92.0) Active confirmed Problem Obesity (348972964) Obesity, unspecified (E66.9) Active confirmed Problem Abnormal vaginal bleeding (639551600) Other specified abnormal uterine and vaginal bleeding [...]
[2024-09-18 13:28] LABS: Alanine Aminotransferase 25 U/L (0-31); Albumin Level 4.6 g/dL (3.5-5.0); Alkaline Phosphatase 93 U/L (39-117); Anion Gap 12 (12-20); Aspartate Amino Transferase 31 U/L (5-31); Blood Urea Nitrogen 14 mg/dL (9-16); Calcium 9.1 mg/dL (8.4-10.2); Carbon Dioxide 27 mmol/L (22-29); Chloride 107 mmol/L (96-108); Cholesterol 226 mg/dL (<200); Estimated Glomerular Filt Rate > 60; HDL Cholesterol 42 mg/dL (>40); Potassium 3.9 mmol/L (3.3-5.1); Sodium 142 mmol/L (135-145); Total Protein 7.6 g/dL (6.5-8.0); Triglycerides 225 mg/dL (<150)
== END 2024-09-18 10:46 | disposition home or self-care (01) ==
LOC: HO.LAB 10:45
PROVIDERS: PCP Internal Medicine; Visit Provider Internal Medicine
DX: E78.1 Pure hyperglyceridemia (principal); E55.9 Vitamin D deficiency, unspecified
CPT/HCPCS: 36415; 80053; 80061; 82306

== ENCOUNTER 2024-09-21 09:36 | Outpatient (AMB) | payer OTHER, SELFPAY ==
[2024-09-21 09:41] VITALS: BP 120/80; BMI 31.2
--- NOTE | 2024-09-21 09:41 | MHC.PC.OV ---
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 Accompanied by: Self / Same As Patient Allergies fenofibrate Adverse Reaction (Mild, Verified 09/21/24 09:51) hair loss Medication List - Last Reconciled 09/21/24 by Kelsi Perdomo MD cholecalciferol (vitamin D3) 25 mcg PO DAILY 90 days docusate sodium 100 mg PO BEDTIME fluticasone propionate 50 mcg/actuation (Flonase Allergy Relief) 1 spray intranasal DAILY lorazepam 1 mg PO BID PRN 30 days methylcellulose (laxative) (Citrucel) 500 mg PO DAILY mirabegron ER (Myrbetriq) 25 mg PO DAILY omeprazole 20 mg PO DAILY pyridoxine (vitamin B6) 100 mg PO DAILY Tobacco use date assessed: 09/21/24 Dental Screening Dental Screen Date: 09/21/24 Did you have a dental visit in the last 12 months?: Yes Did you have a dental problem in the last 6 months where you did not have access to dental care?: No Was dental information given to patient?: Patient has dentist HPI HPI Comments History of Present Illness Details The patient is a 54-year-old female presenting for an annual physical examination and preventative care. She has a history of hyperlipidemia, with recent laboratory results indicating elevated cholesterol levels. Despite the elevated cholesterol, her [place] Risk Score for cardiovascular events in the next 10 years is low at 1.4%. The patient experienced hair loss as an allergic reaction to fenofibrate, which was previously prescribed for hyperlipidemia management. She reports using vitamin D, docusate for constipation as needed, Flonase for allergic rhinitis, and omeprazole for gastroesophageal reflux disease. She also takes vitamin B6 to prevent nephrolithiasis. The patient has a history of uterine polyps and has been advised on management options, including medication, which she has not taken. She has been experiencing pain related to this condition. She has a family history of hypertension in her mother and hyperlipidemia in her father. She does not smoke and consumes alcohol only on special occasions. The patient reports mild depression and expressed interest in counseling services, which will be arranged. [facility] Medical History (Updated 09/21/24 @ 10:04 by Kelsi Perdomo MD) Constipation by delayed colonic transit Left sided sciatica CHASE (generalized anxiety disorder) Mild recurrent major depression Left breast mass Depression with anxiety Family history of colon cancer Seasonal allergic rhinitis due to pollen Hypovitaminosis D GERD (gastroesophageal reflux disease) Surgical History Hx of colonoscopy History of esophagogastroduodenoscopy (EGD) H/O cervical polypectomy H/O lithotripsy Family History Father Hypercholesteremia Mother Hypertension Maternal Grandmother Hypertension CAD (coronary artery disease) Maternal Grandfather No problems noted. Maternal Aunt Breast cancer Diabetes Son No problems noted. Paternal Grandfather No problems noted. Paternal Grandmother No problems noted. Maternal Uncle Colon cancer, Onset Age: 60 Unknown Colon cancer, Onset Age: 42 Social History Housing: Apartment Alcohol intake: current Alcohol intake frequency: holidays/special occasions only Alcohol type: hard liquor Patient Tobacco Use Status: Never used Tobacco e-Cigarette/Vaping Use: Never Used Second Hand Smoke Exposure: No service: No Current occupational status: unemployed Cognitive needs: No Hearing needs: No Vision needs: No Female Reproductive History Menstrual Age of Menarche: 13 Questionnaire PHQ-9 Over the last 2 weeks, how often have you been bothered by any of the following problems? 1. Little interest or pleasure in doing things: not at all 2. Feeling down, depressed, or hopeless: several days 3. Trouble falling or staying asleep, or sleeping too much: several days 4. Feeling tired or having little energy: several days 5. Poor appetite or overeating: not at all 6. Feeling bad about yourself - or that you are a failure or have let yourself or your family down: several days 7. Trouble concentrating on things, such as reading the newspaper or watching television: several days 8. Moving or speaking so slowly that other people could have noticed. Or the opposite - being so fidgety or restless that you have been moving around a lot more than usual: not at all 9. Thoughts that you would be better off or of hurting yourself in some way: not at all Total score: 5 Depression Screening Interpretation: Positive Depression Screening Follow-up: Existing condition and Follow-up Visit Requested Depression Screening Done: Yes 13426 - PHQ-9 Billing: Yes Source: Developed by Drs. Lorenzo Dillon, Nathalie Cheek, Lc Blackwood and colleagues, with an educational junie from [facility]. Thrive Questionnaire Date Thrive assessed: 09/21/24 I am a: Patient What is your living situation today?: I have a steady place to live Within the past 12 months, did the food you bought not last and you didn't have the money to get more?: Never true Within the past 12 months, did you worry whether your food would run out before you got money to buy more?: Never true Do you have trouble paying for medicines?: No Do you have trouble getting transportation to medical appointments?: No Do you have trouble paying your heating and electricity bill?: No Do you have trouble taking care of your child, family member or friend?: No Do you have trouble with day-to-day activities such as bathing, preparing meals, shopping, managing finances, etc.?: No Are you currently unemployed and looking for a job?: No Are you interested in more education?: No Please select the resources that you would like help with: None Currently or been in a relationship where the following occur: No concerns reported THRIVE Score: 0 AUDIT C Alcohol Use Questionnaire (AUDIT-C) 1. How often do you have a drink containing alcohol?: Never Total Score: 0 Score Reviewed/Action Taken: No CHASE-7 AMB Questionnaire CHASE-7 Date CHASE - 7 assessed: 09/21/24 Feeling nervous, anxious, or on edge: 0 = Not at all Not being able to stop or control worryin = Not at all Worrying too much about different things: 1 = Several days Trouble relaxin = Not at all Being so restless that it is hard to sit still: 0 = Not at all Becoming easily annoyed or irritable: 1 = Several days Feeling afraid as if something awful might happen: 1 = Several days Total CHASE-7 score (0-4 normal; 5-9 mild; 10-14 moderate; 15-21 severe): 3 Source: Developed by Drs. Lorenzo Dillon, Nathalie Cheek, Lc Blackwood and colleagues, with an educational junie from [facility]. CHASE-7 Assessment Billing CHASE-7 Assessment Tool: CHASE-7 Assessment 39456 Review of Systems Const All systems reviewed & are unremarkable except as noted in HPI and below Card Denies chest pain at rest, Denies chest pain with activity, Denies edema, Denies irregular heart rhythm, Denies claudication, Denies dyspnea, Denies dyspnea on exertion, Denies orthopnea, Denies paroxysmal nocturnal dyspnea and Denies slow heart rate Resp Denies cough, Denies dyspnea and Denies dyspnea on exertion GI Denies abdominal pain, Denies change in bowel habits, Denies excessive flatus, Denies nausea and Denies vomiting Physical exam (Primary Care) Vital Signs: Last Vital Signs BP 120/80 09/21/24 09:41 BMI result Body Mass Index 31.2 BMI Assessment/Plan discussion: High BMI High, discussed plan: lifestyle, weight reduction, dietary and physical activity Tobacco/Smoking Status: Tobacco use Status Tobacco use date assessed 09/21/24 09/21/24 09:46 Patient Tobacco Use Status Never used Tobacco 09/21/24 09:46 e-Cigarette/Vaping Use Never Used 09/21/24 09:46 PHQ-9: PHQ-9 Score PHQ-9: Total score 5 09/21/24 09:57 Depression Screening Interpretation: Positive Depression Screening Follow-up: Existing condition and Follow-up Visit Requested Thrive Assessment: Date of Thrive Assessment Date Thrive assessed 09/21/24 09/21/24 09:46 Currently or been in a relationship where the following occur: No concerns reported [facility] Head: Yes normal to inspection, Yes normocephalic and Yes atraumatic Ears: external ears normal Eyes General: appearance normal, both eyes and all related structures Eyelids: Yes eyelids normal Conjunctivae: conjunctivae normal Neck Neck: Yes normal visual inspection and Yes supple Resp Effort & Inspection: normal respiratory effort Auscultation: clear to auscultation bilaterally Cardio Jugular venous distension: no JVD Rate: regular rate Rhythm: regular rhythm Heart sounds: S1 normal heart sound present and S2 normal heart sound present GI Inspection: Yes normal to inspection Palpation (GI): Soft to palpation and nontender Auscultation: normal bowel sounds Skin General skin exam: no rashes or lesions noted Neuro General: no focal motor deficits Extrem General: Yes full ROM Psych Appearance: grossly normal Coding Level of Care Code Est Pt Level 3 (34681) Est Pt Prev Care 40-64y(90527) Diagnoses Physical exam Z00.00 Mild recurrent major depression F33.0 Bilateral sciatica M54.31; M54.32 Cervical polyp N84.1 Additional Codes CHASE-7 Assessment Billing - CHASE-7 Assessment Tool: CHASE-7 Assessment 42944 ([id number]) PHQ-9 - 71499 - PHQ-9 Billing: Yes ([id number]) Time Spent (min) 32 Assessment & Plan Assessment & Plan (1) Physical exam: Code(s): Z00.00 - Encounter for general adult medical examination without abnormal findings Category: Medical (2) Mild recurrent major depression: Code(s): F33.0 - Major depressive disorder, recurrent, mild Category: Medical (3) Bilateral sciatica: Code(s): M54.31 - Sciatica, right side; M54.32 - Sciatica, left side Category: Medical (4) Cervical polyp: Code(s): N84.1 - Polyp of cervix uteri Category: Medical Plan The patient will be referred for a colonoscopy due to the time elapsed since the last procedure in 2020. Given the low [place] Risk Score, no pharmacological intervention is required for hyperlipidemia at this time, but lifestyle modifications should be encouraged. Counseling services will be arranged to address the patient's mild depression, as she expressed interest in receiving support. The patient should continue current medications for constipation, allergic rhinitis, and nephrolithiasis prevention. The patient should be monitored for uterine polyps, and further discussions regarding management options should be considered if symptoms persist. Patient was informed and verbally consented to the use of an ambient scribe for clinic note documentation during this visit. Orders: Orders PT Evaluation and Treatment Today M54.31 - Sciatica, right side, M54.32 - Sciatica, left side Referrals LOW VOLTAGE TECHNICIAN Referral N84.1 - Polyp of cervix uteri Open Access Screening Colonoscopy Referral Z12.12 - Encounter for screening for malignant neoplasm of rectum Counseling Referral F33.0 - Major depressive disorder, recurrent, mild Medications: Discontinued lorazepam Discontinued Reason: Patient Completed Course 1 mg PO BID 30 days PRN 45 tabs 0RF anxiety
--- OUTSIDE RECORDS SUMMARY | 2024-09-21 10:09 | XMS_ITS | Patient Health Record ---
Author Organization [facility] Address [address] [place] [address] Care Team Providers Care Integrity Director Name Role Phone ROBERTO PARIS Primary Care Provider Unavailab jhoana Maribel Avendaño Unavailable [phone] Reason For Referral No Information Medications Medication [...] Risk Notes Problem Excessive and frequent menstruation with regular cycle (N92.0) Active confirmed Problem Obesity ([id number]) Obesity, unspecified (E66.9) Active confirmed Problem Abnormal vaginal bleeding ([id number]) Other specified abnormal uterine and vaginal bleeding [...]
--- OUTSIDE RECORDS SUMMARY | 2024-09-21 10:09 | XMS_ITS | Patient Health Record ---
Author Organization [facility] Address [address] [place] [address] Care Team Providers Care Waiver Analyst Name Role Phone Kelsi Belle Primary Care Provider Unavailab Mirza Juarez Jr Unavailable Reason For Referral No Information Medications Medication SIG (Take, Route, Fr equency, Duration) Notes Start Date End Date Status Omeprazole 40 MG 1 capsule Orally Once a day Active Problems Problem Type SNOMED Code ICD Code Onset Dates Problem Status W/U Status Risk Notes Problem [id number] Gastroesophageal reflux disease without esophagitis (K21.9) Active confirmed Plan Of Treatment Future Test Test Name Order Date UPPER GI ENDOSCOPY 06/16/2014 Insurance Providers Payer Name Payer Address Payer Phone Subscriber Number Group Number Insured Name Patient Relationship to Insured Coverage Start Date Coverage End Date [facility] [address] [address] [place], [place] [phone] [id number] PRISCILA MABRY Self - patient is the insured MED[facility]ID OF [facility] [address] [place] [address] [phone] [id number] PRISCILA MABRY Self - patient is the insured Medical (General) History Medical History History ICD Code Denies GA,DM,CVA,Lung disease,renal dise ase Surgical History Surgery Date(Month/Year) kidney stone removal
== END 2024-09-21 10:05 | disposition home or self-care (01) ==
LOC: HO.HMCH 09:37
PROVIDERS: PCP Internal Medicine; Visit Provider Internal Medicine
DX: Z00.00 Encounter for general adult medical examination without abnormal findings (principal); F33.0 Major depressive disorder, recurrent, mild; M54.31 Sciatica, right side; M54.32 Sciatica, left side; N84.1 Polyp of cervix uteri

== ENCOUNTER → 2024-09-21 09:36 | Outpatient (BNVA) | payer OTHER, SELFPAY | PROVIDERS: PCP Internal Medicine; Visit Provider Internal Medicine | DX: Z00.00 Encounter for general adult medical examination without abnormal findings (principal); E78.00 Pure hypercholesterolemia, unspecified; K59.00 Constipation, unspecified; F33.0 Major depressive disorder, recurrent, mild; M54.31 Sciatica, right side; M54.32 Sciatica, left side; N84.1 Polyp of cervix uteri | CPT/HCPCS: 96127; 99396 ==

== ENCOUNTER 2024-10-22 09:32 | Outpatient (AMB) | payer OTHER, SELFPAY ==
--- NOTE | 2024-10-22 09:51 | A.OFFVIS_ITS ---
Intake Visit Reasons: Cysto/US/Pelvic exam Intake Note: Patient presents today for a cystoscopy/US/Pelvic exam Urology Meds:Myrbetriq Allergies to Antibiotic- No Known Allergies Blood Thinner:None Lot:[id number] Exp:05/14/27 Anthropology Lecturer Required: No Accompanied by: Self / Same As Patient Allergies fenofibrate Adverse Reaction (Mild, Verified 10/22/24 09:53) hair loss Medication List - Last Reconciled 10/22/24 by Christin Morales MD cholecalciferol (vitamin D3) 25 mcg PO DAILY 90 days docusate sodium 100 mg PO BEDTIME fluticasone propionate 50 mcg/actuation (Flonase Allergy Relief) 1 spray intranasal DAILY methylcellulose (laxative) (Citrucel) 500 mg PO DAILY mirabegron ER (Myrbetriq) 25 mg PO DAILY mirabegron ER (Myrbetriq) 50 mg PO DAILY omeprazole 20 mg PO DAILY pyridoxine (vitamin B6) 100 mg PO DAILY HPI Comments Details: 10/22/24--Sulma she has history of kidney stones also complains of urinary incontinence here for office cystoscopy also will evaluate with pelvic examination. She was given a trial of Myrbetriq 25mg daily. Findings office cystoscopy is notable for mild to moderate bladder wall thickening, pelvic exam no prolapse noted after filling the bladder with sterile water 175 mL there is some leakage with coughing and Valsalva. I will discuss options to consider urethral bulking and continuing the Myrbetriq she may benefit from increasing the dose to 50 mg daily. History of Present Illness The patient is a 54-year-old female presenting with urinary incontinence and a history of nephrolithiasis. She reports experiencing urinary leakage, particularly with urge and coughing, and notes that she cannot hold urine as effectively as before. The patient has been on Mirabegron 25 mg, which has provided some improvement, but she continues to experience leakage. She has not undergone a hysterectomy and has had one . Results - Cystoscopy: Mild to moderate bladder wall thickening observed Plan 1. Nephrolithiasis - renal ultrasound pending. Telehealth follow-up to review results. 2. Urinary Incontinence - Consider increasing Mirabegron to 50 mg daily to improve symptoms. - Recommend pelvic floor physical therapy to strengthen pelvic muscles. - Discussed the option of urethral bulking as a minimally invasive procedure. 07/20/24--Sulma is a 54-year-old female who has history of kidney stones. She was last seen in the office November 2022. She had a renal ultrasound at that time that was reviewed noting small bilateral kidney stones date of ultrasound was 11/19/2022. Today's urinalysis reviewed negative for blood negative for leukocytes. History of Present Illness The patient is a 54-year-old female presenting with follow-up for kidney stones and has new complaints of urinary incontinence. She was previously diagnosed with bilateral renal calculi, which were last observed to be small in an ultrasound from November 2022. Additionally, she has a reports a history of uterine polyps and has reported occasional vaginal bleeding associated with this condition. The patient experiences stress urinary incontinence, characterized by leakage upon coughing. Also during sudden urges that cannot always be controlled. Her symptoms include leakage triggered by coughing, laughing, and turning on water. Although she feels an increase in urgency, moments of frequency and urgency do occur without immediate access to the restroom, leading to episodes of incontinence. I discussed trialing Myrbetriq 25 mg once daily to address bladder spasms, explaining potential side effects. I recommended Kegel exercises and lifestyle changes, including potential weight loss, to alleviate pelvic pressure. Imaging will be ordered to assess the current status of renal stones and the bladder. The follow-up will allow examination of any anatomical issues through with cystoscopy. I provided reassurance that the procedure involves minimal discomfort due to the application of topical anesthetic before examination. Plan Myrbetriq 25 mg daily. Discussed Kegel's and lifestyle changes including weight loss. Renal and bladder ultrasound. Follow-up for pelvic exam and office cystoscopy. Results - Renal ultrasound (11/19/22): Small bilateral kidney stones - Urinalysis: Negative for blood and leukocytes 12/03/22?--She is followed today for kidney stones, and US results. She has seen Curtis Rae on 06/02/21 for nephrolithiasis. Patient was started on Vitamin B6 daily at that time. She was encouraged to continue with adequate amount of water intake and to squeeze lemon juice in to some of her glasses of water. Repeat renal US was ordered during that time.? I reviewed the renal US results from 11/19/22 revealed small bilateral nonobstructing renal calculi. 3 mm stone in the right kidney, and 3 mm stone in the left kidney. She has been doing well since her last visit. She states that she does have occasional left sided flank pain. She admits that she does not consume adequate amount of fluids. I reviewed the CAT scan of the abdomen/pelvis from 06/27/22 revealed 2 mm left kidney stone visualized. I have discussed further evaluation with 24-hour urine collection. I will renew the vitamin B6 100 daily. 12/03/22: Evaluation today?UA? leukocytes: negative; blood: negative. [facility] Medical History Constipation by delayed colonic transit Left sided sciatica CHASE (generalized anxiety disorder) Mild recurrent major depression Left breast mass Depression with anxiety Family history of colon cancer Seasonal allergic rhinitis due to pollen Hypovitaminosis D GERD (gastroesophageal reflux disease) Surgical History Hx of colonoscopy History of esophagogastroduodenoscopy (EGD) H/O cervical polypectomy H/O lithotripsy Family History Father Hypercholesteremia Mother Hypertension Maternal Grandmother Hypertension CAD (coronary artery disease) Maternal Grandfather No problems noted. Maternal Aunt Breast cancer Diabetes Son No problems noted. Paternal Grandfather No problems noted. Paternal Grandmother No problems noted. Maternal Uncle Colon cancer, Onset Age: 60 Unknown Colon cancer, Onset Age: 42 Social History Housing: Apartment Alcohol intake: current Alcohol intake frequency: holidays/special occasions only Alcohol type: hard liquor Patient Tobacco Use Status: Never used Tobacco e-Cigarette/Vaping Use: Never Used Second Hand Smoke Exposure: No service: No Current occupational status: unemployed Cognitive needs: No Hearing needs: No Vision needs: No Female Reproductive History Menstrual Age of Menarche: 13 Review of Systems Const All systems reviewed & are unremarkable except as noted in HPI and below Reports no additional complaints Eyes Reports no additional complaints ENT Reports no additional complaints Card Reports no additional complaints Resp Reports no additional complaints GI Reports no additional complaints Reports as per HPI Musc Reports no additional complaints Skin/Breast Reports system reviewed and no additional complaints, except as documented Neuro Reports no additional complaints Psych Reports no additional complaints Endo Reports no additional complaints Mukesh/Lymph Reports no additional complaints Aller/Immun Reports no additional complaints Office Procedures Cystoscopy Consent Discussed risk and benefit or proposed procedure with the patient. Information consent for procedure given to the patient. Discussed technical aspects, risks, benefits and alternatives in full. Addressed all of the patient's questions and concerns regarding the procedure. The patient demonstrated knowledge and understanding. They wish to proceed with this procedure. Preparation The patient was prepped in the usual manner. A nuisance wildlife trapper was present and in the room. Genitalia was prepped with betadine solution in a sterile manner. Lidocaine Jelly 2% was placed into the urethra and 16Fr flexible Olympus cystoscope was inserted into the meatus after adequate lubrication. Procedure Time out per protocol performed. Speculum used as indicated for adequate visualization of urethra, the flexible cystoscope is passed transurethrally: The bladder was inspected in its entirety with utilization retroflexion displaying: Tumor(s): no suspicious bladder lesions visualized Trabeculation: Mild to Moderate Mucosal Erthema: NA Orifices: normal shape and position Urethra: normal [id number] DISPOSABLE SCOPE URO-G FLEXIBLE SCOPE Procedure code (CPT) selection complete Office Meds lidocaine HCl 2 % mucosal jelly in applicator Performing Provider: Christin Morales MD [facility] Administered by: Everett Gardner LPN on 10/22/24 10:09 Dose Route Admin Location Dispensed Lot Number Expiration Date [facility] B2B Outside Sales Representative 10 mL intra-urethral 20 mL nitrofurantoin monohydrate/macrocrystals 100 mg capsule Performing Provider: Christin Morales MD Performing [facility] Administered by: Everett Gardner LPN on 10/22/24 10:09 Dose Route Admin Location Dispensed Lot Number Expiration Date [place] B2B Outside Sales Representative 100 mg PO 1 cap Results Reviewed Results Reviewed: Date of Service: 11/19/22 EXAMINATION:? US RETROPERITONEAL LIMITED (RENAL ONLY) CLINICAL INFORMATION: Calculus of kidney. COMPARISON:? CT abdomen and pelvis 06/27/2022. Ultrasound retroperitoneal limited (renal only) 11/23/2021 and 10/03/2020. X-ray abdomen KUB 12/23/2013. FINDINGS: RIGHT KIDNEY: 10.4 x 4.4 x 4.8 cm (SAG x AP x TRV). The kidney is normal in size, contour, and echogenicity. Renal cortical thickness is normal. No focal parenchymal lesions or hydronephrosis. 0.3 x 0.2 x 0.2 cm nonobstructing calculus is seen in the mid to lower pole. LEFT KIDNEY: 11.5 x 5.5 x 4.5 cm (SAG x AP x TRV). The kidney is normal in size, contour, and echogenicity. Renal cortical thickness is normal. No focal parenchymal lesions or hydronephrosis. 0.3 x 0.2 x 0.2 cm nonobstructing calculus is seen in the lower pole. There is mild fullness of the renal pelvis, a normal variant. IMPRESSION:? Small bilateral nonobstructing renal calculi. Assessment & Plan Assessment & Plan (1) Urinary urgency: Code(s): R39.15 - Urgency of urination Category: Medical (2) Urinary incontinence: Code(s): R32 - Unspecified urinary incontinence Category: Medical (3) BERNIE (stress urinary incontinence, female): Code(s): N39.3 - Stress incontinence (female) (male) Category: Medical (4) Nephrolithiasis: Code(s): N20.0 - Calculus of kidney Category: Medical Plan Patient instructed to use the Myrbetriq 50 mg for 2 weeks if there is impr ovement we will continue the Myrbetriq 50 mg dose. If there is no significant change she will return to the Myrbetriq 25 mg dose. Plan 1. Nephrolithiasis - renal ultrasound pending. Telehealth follow-up to review results. 2. Urinary Incontinence - Consider increasing Mirabegron to 50 mg daily to improve symptoms. - Recommend pelvic floor physical therapy to strengthen pelvic muscles. - Discussed the option of urethral bulking as a minimally invasive procedure. Orders: Orders PT Evaluation and Treatment Today N39.3 - Stress incontinence (female) (male) AMB Cystoscopy Today N39.3 - Stress incontinence (female) (male), R32 - Unspecified urinary incontinence, R39.15 - Urgency of urination Medications: New mirabegron ER (Myrbetriq) 50 mg PO DAILY 30 tabs 3RF Patient Instructions: The patient had an opportunity to ask questions regarding treatment plan. The patient expressed understanding and agreement with the above treatment plan. The patient is aware they should contact our office by phone for worsening of their current condition or the appearance of new symptoms. Compliance is encouraged with any medications and followup testing that is ordered. It is a privilege to be allowed the opportunity to participate in the urologic care of your patient. If you have any questions or concerns regarding treatment for the above conditions please do not hesitate to contact me. The office telephone contact is [phone]. This note is constructed in part using voice recognition software. While every effort has been made to ensure accuracy chief reservoir engineering errors may have been included. Yours sincerely, Christin Morales MD Scribe Plan - Not visible on output: Patient was informed and verbally consented to the use of an ambient scribe for clinic note documentation during this visit. Coding Level of Care Code Est Pt Level 4 (03259) Complex EM visit Add On G2211 Diagnoses Urinary urgency R39.15 Urinary incontinence R32 BERNIE (stress urinary incontinence, female) N39.3 Nephrolithiasis N20.0 CPT Codes Cystoscopy - CPT: 70385-[id number] ([id number])
--- OUTSIDE RECORDS SUMMARY | 2024-10-22 10:19 | XMS_ITS | Patient Health Record ---
Author Organization [facility] Address [address] [place] [address] Care Team Providers Care Surveyor Geodetic Name Role Phone ROBERTO PARIS Primary Care Provider Unavailab jhoana Kateryna Maribel Unavailable [phone] Reason For Referral No Information Medications Medication [...] Risk Notes Problem Excessive and frequent menstruation (862829396) Excessive and frequent menstruation with regular cycle (N92.0) Active confirmed Problem Obesity (982605242) Obesity, unspecified (E66.9) Active confirmed Problem Abnormal vaginal bleeding (295461609) Other specified abnormal uterine and vaginal bleeding [...]
--- OUTSIDE RECORDS SUMMARY | 2024-10-22 10:19 | XMS_ITS | Patient Health Record ---
Author Organization [facility] Address [address] [place] [address] Care Team Providers Care Mobile Lounge Driver Name Role Phone Kelsi Belle Primary Care Provider Unavailab Mirza Juarez Jr Unavailable [phone] Reason For Referral No Information Medications Medication SIG (Take, Route, Fr equency, Duration) Notes Start Date End Date Status Omeprazole 40 MG 1 capsule Orally Once a day Active Problems Problem Type SNOMED Code ICD Code Onset Dates Problem Status W/U Status Risk Notes Problem [id number] Gastroesophageal reflux disease without esophagitis (K21.9) Active confirmed Plan Of Treatment Future Test Test Name Order Date UPPER GI ENDOSCOPY 06/16/2014 Insurance Providers Payer Name Payer Address Payer Phone Subscriber Number Group Number Insured Name Patient Relationship to Insured Coverage Start Date Coverage End Date [facility] [address] [address] [place], [place] [id number] PRISCILA MABRY Self - patient is the insured [facility] [address] [place] [address] [phone] [id number] PRISCILA MABRY Self - patient is the insured Medical (General) History Medical History History ICD Code Denies [place],DM,CVA,Lung disease,renal dise ase Surgical History Surgery Date(Month/Year) kidney stone removal
== END 2024-10-22 11:00 | disposition home or self-care (01) ==
LOC: HO.HUSH 09:33
PROVIDERS: PCP Internal Medicine; Visit Provider Urology
DX: R39.15 Urgency of urination (principal); N39.3 Stress incontinence (female) (male); N20.0 Calculus of kidney; Z13.9 Encounter for screening, unspecified
CPT/HCPCS: 52000; 99214

== ENCOUNTER → 2024-10-22 09:32 | Outpatient (BNVA) | payer OTHER, SELFPAY | PROVIDERS: PCP Internal Medicine; Visit Provider Urology | DX: N39.3 Stress incontinence (female) (male) (principal); R39.15 Urgency of urination; N20.0 Calculus of kidney; Z13.9 Encounter for screening, unspecified | CPT/HCPCS: 52000; 81003; 99212 ==

== ENCOUNTER 2024-10-29 08:17 | Outpatient (REF) | payer OTHER, SELFPAY ==
--- NOTE | ~2024-10-29 | US_ITS ---
CLINICAL HISTORY: R39.15 - Urgency of urination US retroperitoneum Comparison: None provided Findings: Right kidney normal size and echotexture, 10.5 cm length. Pelviectasis. No hydronephrosis, mass or calculus. Normal color flow. Left kidney normal size and echotexture, 10.7 cm in length. Pelviectasis. No hydronephrosis, mass or calculus. Normal color flow. Urinary bladder is unremarkable. Prevoid volume 327 mL. Postvoid volume 19 mL. Ureteral jets are visualized bilaterally Impression: Bilateral pelviectasis, no hydronephrosis, otherwise normal. This document has been electronically signed by: Karyna Riley MD on 10/29/2024 15:48:28
--- OUTSIDE RECORDS SUMMARY | 2024-10-29 09:11 | XMS_ITS | Patient Health Record ---
Author Organization [facility] Address [address] [place] [address] Care Team Providers Care Captain Assistant Name Role Phone Kelsi Belle Primary Care Provider Unavailab Mirza Juarez Jr Unavailable Reason For Referral No Information Medications Medication SIG (Take, Route, Fr equency, Duration) Notes Start Date End Date Status Omeprazole 40 MG 1 capsule Orally Once a day Active Problems Problem Type SNOMED Code ICD Code Onset Dates Problem Status W/U Status Risk Notes Problem [id number] Gastroesophageal reflux disease without esophagitis (K21.9) Active confirmed Plan Of Treatment Future Test Test Name Order Date UPPER GI ENDOSCOPY 06/16/2014 Insurance Providers Payer Name Payer Address Payer Phone Subscriber Number Group Number Insured Name Patient Relationship to Insured Coverage Start Date Coverage End Date [facility] [address] [address] [place], [place] [id number] PRISCILA MABRY Self - patient is the insured [facility]ICAID [facility] [address] [place] [address] [phone] [id number] PRISCILA MABRY Self - patient is the insured Medical (General) History Medical History History ICD Code Denies [place],DM,CVA,Lung disease,renal dise ase Surgical History Surgery Date(Month/Year) kidney stone removal
--- OUTSIDE RECORDS SUMMARY | 2024-10-29 09:11 | XMS_ITS | Patient Health Record ---
Author Organization [facility] Address [address] [place] [address] Care Team Providers Care Instrument Technician Name Role Phone ROBERTO PARIS Primary Care Provider Unavailab jhoana Kateryna Maribel Unavailable [phone] Reason For Referral No Information Medications Medication [...] Risk Notes Problem Excessive and frequent menstruation (564906854) Excessive and frequent menstruation with regular cycle (N92.0) Active confirmed Problem Obesity (014643257) Obesity, unspecified (E66.9) Active confirmed Problem Abnormal vaginal bleeding (502799209) Other specified abnormal uterine and vaginal bleeding [...]
== END 2024-10-29 08:18 | disposition home or self-care (01) ==
LOC: HO.HMGCX 08:17
PROVIDERS: PCP Internal Medicine; Visit Provider Urology
DX: R39.15 Urgency of urination (principal); N39.3 Stress incontinence (female) (male); N20.0 Calculus of kidney
CPT/HCPCS: 76770

== ENCOUNTER → 2024-10-29 08:20 | Outpatient (BNV) | payer OTHER, SELFPAY | PROVIDERS: PCP Internal Medicine; Visit Provider Radiology Diagnostic Radiology | DX: R39.15 Urgency of urination (principal) | CPT/HCPCS: 76770 ==

== ENCOUNTER 2024-12-11 09:10 | Outpatient (AMB) | payer OTHER, SELFPAY ==
--- NOTE | 2024-12-11 09:10 | MHC.OFFVIS ---
Intake Visit Reasons: 7w/review renal US Intake Note: Patient presents today via telehealth for 7w/US 10/29 Retroperitoneum US Urology Meds:Vitamin B6 Allergies to Antibiotic- No Known Allergies Blood Thinner:None Local Area Network Administrator Required: No Accompanied by: Self / Same As Patient Allergies fenofibrate Adverse Reaction (Mild, Verified 12/11/24 09:11) hair loss HPI Comments Details: 12/11/24--Sulma is followed for history of kidney stones and lower urinary tract symptoms of urgency and urinary incontinence. She has found to have mixed urinary incontinence in his prescribed Myrbetriq 50 mg daily History of Present Illness The patient is a 54-year-old female presenting with mixed urinary incontinence and a history of kidney stones. The patient has a history of kidney stones, which have been monitored through ultrasound imaging. Recent ultrasound - no renal calculi. The patient is also experiencing mixed urinary incontinence, for which she was prescribed Mirabegron (Myrbetriq) 50 mg daily. However, after increasing the dose from 25 mg to 50 mg, she developed a urinary tract infection, leading her to discontinue the medication. Physical therapy was recommended as part of her treatment plan. Results - Ultrasound: 10/29/24--Kidneys clear of stones Plan 1. Kidney Stones - Recent ultrasound shows no kidney stones 2. Mixed Urinary Incontinence - Prescribed Mirabegron (Myrbetriq) 50 mg daily, but pt discontinued use due to urinary tract infection. - Pelvic floor Physical therapy ordered 3. Urinary Tract Infection - Developed after increasing Mirabegron dose, leading to discontinuation of medication. Will monitor 10/22/24--Sulma she has history of kidney stones also complains of urinary incontinence here for office cystoscopy also will evaluate with pelvic examination. She was given a trial of Myrbetriq 25mg daily. Findings office cystoscopy is notable for mild to moderate bladder wall thickening, pelvic exam no prolapse noted after filling the bladder with sterile water 175 mL there is some leakage with History of Present Illness The patient is a 54-year-old female presenting with urinary incontinence and a history of nephrolithiasis. She reports experiencing urinary leakage, particularly with urge and coughing, and notes that she cannot hold urine as effectively as before. The patient has been on Mirabegron 25 mg, which has provided some improvement, but she continues to experience leakage. She has not undergone a hysterectomy and has had one . Results - Cystoscopy: Mild to moderate bladder wall thickening observed Plan 1. Nephrolithiasis - renal ultrasound pending. Telehealth follow-up to review results. 2. Urinary Incontinence - Consider increasing Mirabegron to 50 mg daily to improve symptoms. - Recommend pelvic floor physical therapy to strengthen pelvic muscles. - Discussed the option of urethral bulking as a minimally invasive procedure. 07/20/24--Sulma is a 54-year-old female who has history of kidney stones. She was last seen in the office November 2022. She had a renal ultrasound at that time that was reviewed noting small bilateral kidney stones date of ultrasound was 11/19/2022. Today's urinalysis reviewed negative for blood negative for leukocytes. History of Present Illness The patient is a 54-year-old female presenting with follow-up for kidney stones and has new complaints of urinary incontinence. She was previously diagnosed with bilateral renal calculi, which were last observed to be small in an ultrasound from November 2022. Additionally, she has a reports a history of uterine polyps and has reported occasional vaginal bleeding associated with this condition. The patient experiences stress urinary incontinence, characterized by leakage upon coughing. Also during sudden urges that cannot always be controlled. Her symptoms include leakage triggered by coughing, laughing, and turning on water. Although she feels an increase in urgency, moments of frequency and urgency do occur without immediate access to the restroom, leading to episodes of incontinence. I discussed trialing Myrbetriq 25 mg once daily to address bladder spasms, explaining potential side effects. I recommended Kegel exercises and lifestyle changes, including potential weight loss, to alleviate pelvic pressure. Imaging will be ordered to assess the current status of renal stones and the bladder. The follow-up will allow examination of any anatomical issues through with cystoscopy. I provided reassurance that the procedure involves minimal discomfort due to the application of topical anesthetic before examination. Plan Myrbetriq 25 mg daily. Discussed Kegel's and lifestyle changes including weight loss. Renal and bladder ultrasound. Follow-up for pelvic exam and office cystoscopy. Results - Renal ultrasound (11/19/22): Small bilateral kidney stones - Urinalysis: Negative for blood and leukocytes 12/03/22?--She is followed today for kidney stones, and US results. She has seen Curtis Rae on 06/02/21 for nephrolithiasis. Patient was started on Vitamin B6 daily at that time. She was encouraged to continue with adequate amount of water intake and to squeeze lemon juice in to some of her glasses of water. Repeat renal US was ordered during that time.? I reviewed the renal US results from 11/19/22 revealed small bilateral nonobstructing renal calculi. 3 mm stone in the right kidney, and 3 mm stone in the left kidney. She has been doing well since her last visit. She states that she does have occasional left sided flank pain. She admits that she does not consume adequate amount of fluids. I reviewed the CAT scan of the abdomen/pelvis from 06/27/22 revealed 2 mm left kidney stone visualized. I have discussed further evaluation with 24-hour urine collection. I will renew the vitamin B6 100 daily. 12/03/22: Evaluation today?UA? leukocytes: negative; blood: negative. [facility] Medical History Constipation by delayed colonic transit Left sided sciatica CHASE (generalized anxiety disorder) Mild recurrent major depression Left breast mass Depression with anxiety Family history of colon cancer Seasonal allergic rhinitis due to pollen Hypovitaminosis D GERD (gastroesophageal reflux disease) Surgical History Hx of colonoscopy History of esophagogastroduodenoscopy (EGD) H/O cervical polypectomy H/O lithotripsy Family History Father Hypercholesteremia Mother Hypertension Maternal Grandmother Hypertension CAD (coronary artery disease) Maternal Grandfather No problems noted. Maternal Aunt Breast cancer Diabetes Son No problems noted. Paternal Grandfather No problems noted. Paternal Grandmother No problems noted. Maternal Uncle Colon cancer, Onset Age: 60 Unknown Colon cancer, Onset Age: 42 Social History Housing: Apartment Alcohol intake: current Alcohol intake frequency: holidays/special occasions only Alcohol type: hard liquor Patient Tobacco Use Status: Never used Tobacco e-Cigarette/Vaping Use: Never Used Second Hand Smoke Exposure: No service: No Current occupational status: unemployed Cognitive needs: No Hearing needs: No Vision needs: No Female Reproductive History Menstrual Age of Menarche: 13 Review of Systems Const All systems reviewed & are unremarkable except as noted in HPI and below Reports no additional complaints Eyes Reports no additional complaints ENT Reports no additional complaints Card Reports no additional complaints Resp Reports no additional complaints GI Reports no additional complaints Reports as per HPI Musc Reports no additional complaints Skin/Breast Reports system reviewed and no additional complaints, except as documented Neuro Reports no additional complaints Psych Reports no additional complaints Endo Reports no additional complaints Mukesh/Lymph Reports no additional complaints Aller/Immun Reports no additional complaints Telehealth Telehealth Telehealth Platform: DEMANDIT Location of provider rendering services: practice address Location of patient: address on file Patient Identification confirmed using: Name, : Yes Telehealth method: video Patient verbally consented to treatment: Yes Patient verbally consented to billing insurance company: Yes Patient informed of any privacy concerns related to visit: Yes Results Reviewed Results Reviewed: Date of Service: 10/29/24 Reason for Exam: R39.15 - Urgency of urination CLINICAL HISTORY: R39.15 - Urgency of urination US retroperitoneum Comparison: None provided Findings: Right kidney normal size and echotexture, 10.5 cm length. Pelviectasis. No hydronephrosis, mass or calculus. Normal color flow. Left kidney normal size and echotexture, 10.7 cm in length. Pelviectasis. No hydronephrosis, mass or calculus. Normal color flow. Urinary bladder is unremarkable. Prevoid volume 327 mL. Postvoid volume 19 mL. Ureteral jets are visualized bilaterally Impression: Bilateral pelviectasis, no hydronephrosis, otherwise normal. Date of Service: 11/19/22 EXAMINATION:? US RETROPERITONEAL LIMITED (RENAL ONLY) CLINICAL INFORMATION: Calculus of kidney. COMPARISON:? CT abdomen and pelvis 06/27/2022. Ultrasound retroperitoneal limited (renal only) 11/23/2021 and 10/03/2020. X-ray abdomen KUB 12/23/2013. FINDINGS: RIGHT KIDNEY: 10.4 x 4.4 x 4.8 cm (SAG x AP x TRV). The kidney is normal in size, contour, and echogenicity. Renal cortical thickness is normal. No focal parenchymal lesions or hydronephrosis. 0.3 x 0.2 x 0.2 cm nonobstructing calculus is seen in the mid to lower pole. LEFT KIDNEY: 11.5 x 5.5 x 4.5 cm (SAG x AP x TRV). The kidney is normal in size, contour, and echogenicity. Renal cortical thickness is normal. No focal parenchymal lesions or hydronephrosis. 0.3 x 0.2 x 0.2 cm nonobstructing calculus is seen in the lower pole. There is mild fullness of the renal pelvis, a normal variant. IMPRESSION:? Small bilateral nonobstructing renal calculi. Assessment & Plan Assessment & Plan (1) History of kidney stones: Code(s): Z87.442 - Personal history of urinary calculi Category: Medical (2) Urinary urgency: Code(s): R39.15 - Urgency of urination Category: Medical (3) Urinary incontinence: Code(s): R32 - Unspecified urinary incontinence Category: Medical (4) BERNIE (stress urinary incontinence, female): Code(s): N39.3 - Stress incontinence (female) (male) Category: Medical (5) Nephrolithiasis: Code(s): N20.0 - Calculus of kidney Category: Medical (6) UTI (urinary tract infection): Code(s): N39.0 - Urinary tract infection, site not specified Category: Medical Plan Plan 1. Kidney Stones - Recent ultrasound shows no kidney stones 2. Mixed Urinary Incontinence - Prescribed Mirabegron (Myrbetriq) 50 mg daily, but pt discontinued use due to urinary tract infection. - Pelvic floor Physical therapy ordered 3. Urinary Tract Infection - Developed after increasing Mirabegron dose, leading to discontinuation of medication. Will monitor Orders: Orders US renal BI 11 Months Z87.442 - Personal history of urinary calculi Patient Instructions: The patient had an opportunity to ask questions regarding treatment plan. The patient expressed understanding and agreement with the above treatment plan. The patient is aware they should contact our office by phone for worsening of their current condition or the appearance of new symptoms. Compliance is encouraged with any medications and followup testing that is ordered. It is a privilege to be allowed the opportunity to participate in the urologic care of your patient. If you have any questions or concerns regarding treatment for the above conditions please do not hesitate to contact me. The office telephone contact is [phone]. This note is constructed in part using voice recognition software. While every effort has been made to ensure accuracy baggage and mail agent errors may have been included. Yours sincerely, Christin Morales MD Scribe Plan - Not visible on output: Patient was informed and verbally consented to the use of an ambient scribe for clinic note documentation during this visit. Coding Level of Care Code Tele Est Pt Level 4 (99945) Diagnoses History of kidney stones Z87.442 Urinary urgency R39.15 Urinary incontinence R32 BERNIE (stress urinary incontinence, female) N39.3 Nephrolithiasis N20.0 UTI (urinary tract infection) N39.0
--- OUTSIDE RECORDS SUMMARY | 2024-12-11 09:58 | XMS_ITS | Patient Health Record ---
Author Organization [employer] [facility] Address [address] [place] [address] Care Team Providers Care Nut Grader Name Role Phone ROBERTO PARIS Primary Care Provider Unavailab jhoana Maribel Avendaño Unavailable [phone] Reason For Referral No Information Medications Medication [...] Problem Status W/U Status Risk Notes Problem Information temporarily unavailable Excessive and frequent menstruation with regular cycle (N92.0) Active confirmed Problem Information temporarily unavailable Obesity, unspecified (E66.9) Active confirmed Problem Information temporarily unavailable Other specified abnormal uterine and vaginal bleeding [...]
--- OUTSIDE RECORDS SUMMARY | 2024-12-11 09:58 | XMS_ITS | Patient Health Record ---
Author Organization [facility] Address [address] [place] [address] Care Team Providers Care Gateman Name Role Phone Kelsi Belle Primary Care Provider Unavailab Mirza Juarez Jr Unavailable Reason For Referral No Information Medications Medication SIG (Take, Route, Fr equency, Duration) Notes Start Date End Date Status Omeprazole 40 MG 1 capsule Orally Once a day Active Problems Problem Type SNOMED Code ICD Code Onset Dates Problem Status W/U Status Risk Notes Problem Information temporarily unavailable Gastroesophageal reflux disease without esophagitis (K21.9) Active confirmed Plan Of Treatment Future Test Test Name Order Date UPPER GI ENDOSCOPY 06/16/2014 Insurance Providers Payer Name Payer Address Payer Phone Subscriber Number Group Number Insured Name Patient Relationship to Insured Coverage Start Date Coverage End Date [facility] [address] [address] [place], [place] [id number] PRISCILA MABRY Self - patient is the insured MEDICAID OF [facility] [address] [place] [address] [phone] [id number] PRISCILA MABRY Self - patient is the insured Medical (General) History Medical History History ICD Code Denies [place],DM,CVA,Lung disease,renal dise ase Surgical History Surgery Date(Month/Year) kidney stone removal
== END 2024-12-11 11:49 | disposition home or self-care (01) ==
LOC: HO.HUSH 09:10
PROVIDERS: PCP Internal Medicine; Visit Provider Urology
DX: Z87.442 Personal history of urinary calculi (principal); R39.15 Urgency of urination; R32 Unspecified urinary incontinence; N39.3 Stress incontinence (female) (male); N20.0 Calculus of kidney; N39.0 Urinary tract infection, site not specified
CPT/HCPCS: 99214

== ENCOUNTER 2025-01-22 11:28 | Outpatient (REF) | payer OTHER, SELFPAY ==
--- NOTE | ~2025-01-22 | MM_ITS ---
EXAMINATION: MM SCREENING DIGITAL BREAST TOMOSYNTHESIS, BILATERAL CLINICAL INFORMATION: Screening. Asymptomatic. COMPARISON: Mammography: Comparison is made with available priors TECHNIQUE: Digital breast mammography with tomosynthesis is performed in both the craniocaudal and mediolateral oblique views along with computer-aided detection (CAD). FINDINGS: The breasts are heterogeneously dense, which may obscure small masses. There are no significant masses, abnormal calcifications, or other abnormalities. MM/MM tomosynthesis screening BI IMPRESSION: No mammographic evidence of malignancy. ASSESSMENT: BI-RADS Category 1: Negative RECOMMENDATION: Routine annual mammography screening. 1 year F/U This examination should not preclude the clinical evaluation of a suspicious palpable abnormality. This patient's information was entered into a reminder system with a target due date for their next mammogram. Electronically signed by: Liza Boucher DO 01/25/2025 12:43 PM RACHEL
== END 2025-01-22 11:29 | disposition home or self-care (01) ==
LOC: HO.MAMMO 11:28
PROVIDERS: PCP Internal Medicine; Visit Provider Internal Medicine
DX: Z12.31 Encounter for screening mammogram for malignant neoplasm of breast (principal)
CPT/HCPCS: 77063; 77067

== ENCOUNTER → 2025-01-22 11:30 | Outpatient (BNV) | payer OTHER, SELFPAY | PROVIDERS: PCP Internal Medicine; Visit Provider Internal Medicine | DX: Z12.31 Encounter for screening mammogram for malignant neoplasm of breast (principal) | CPT/HCPCS: 77063; 77067 ==

== ENCOUNTER 2025-01-29 11:32 | Day surgery (SDC) | payer OTHER, SELFPAY ==
--- NOTE | 2025-01-26 15:00 | HO.ANESPROP2 ---
Documented by User: Rocio Aguilar NP 01/26/25 15:01 HPI - Anesthesia Eval Consult details Narrative: 54yo F for Colonoscopy PMFSH Active Problems Active Problems: All Active Problems UTI (urinary tract infection) (Acute) History of kidney stones (Acute) Bilateral sciatica (Acute) Cervical polyp (Acute) Bilateral kidney stones (Acute) BERNIE (stress urinary incontinence, female) (Acute) Urinary incontinence (Acute) Urinary urgency (Acute) Breast pain, left (Acute) Blurry vision (Acute) Hypertriglyceridemia (Acute) Physical exam (Acute) Constipation by delayed colonic transit (Acute) Left sided sciatica (Acute) CHASE (generalized anxiety disorder) (Acute) Mild recurrent major depression (Acute) Abnormal ultrasound of breast (Acute) Nephrolithiasis (Acute) Left breast mass (Acute) Family history of colon cancer (Acute) Seasonal allergic rhinitis due to pollen (Acute) Hypovitaminosis D (Acute) GERD (gastroesophageal reflux disease) (Acute) Past Medical History Medical History Constipation by delayed colonic transit Left sided sciatica CHASE (generalized anxiety disorder) Mild recurrent major depression Left breast mass Depression with anxiety Family history of colon cancer Seasonal allergic rhinitis due to pollen Hypovitaminosis D GERD (gastroesophageal reflux disease) Family History Family History Father Hypercholesteremia Mother Hypertension Maternal Grandmother Hypertension CAD (coronary artery disease) Maternal Grandfather No problems noted. Maternal Aunt Breast cancer Diabetes Son No problems noted. Paternal Grandfather No problems noted. Paternal Grandmother No problems noted. Maternal Uncle Colon cancer, Onset Age: 60 Unknown Colon cancer, Onset Age: 42 Family history of problems with anesthesia: No Surgical History Surgical History Hx of colonoscopy History of esophagogastroduodenoscopy (EGD) H/O cervical polypectomy H/O lithotripsy History of Problems with Anesthesia: No Social History Social History Housing: Apartment Alcohol intake: current Alcohol intake frequency: holidays/special occasions only Alcohol type: hard liquor Patient Tobacco Use Status: Never used Tobacco e-Cigarette/Vaping Use: Never Used Second Hand Smoke Exposure: No Use of substances other than those prescribed or required for medical reasons: No Are you DNR?: No Advance Directives: No Advance Directives Information Provided: Yes service: No Current occupational status: unemployed Cognitive needs: No Hearing needs: No Vision needs: No Meds Allergies Allergy/AdvReac Type Severity Reaction Status Date / Time fenofibrate AdvReac Mild hair loss Verified 01/29/25 12:05 Home Medications ?Medication ?Instructions ?Recorded ?Confirmed ?Last Taken ?Type fluticasone propionate 50 1 spray intranasal DAILY PRN 11/17/19 01/29/25 Unknown History mcg/actuation nasal Congestion spray,suspension (Flonase Allergy Relief) docusate sodium 100 mg capsule 100 mg PO BEDTIME PRN Constipation 01/29/25 01/29/25 Unknown History methylcellulose (laxative) 500 mg 500 mg PO DAILY PRN Constipation 01/29/25 01/29/25 Unknown History tablet (Citrucel) norethindrone acetate 5 mg tablet 5 mg PO DAILY 01/29/25 01/29/25 Unknown History omeprazole 20 mg capsule,delayed 20 mg PO DAILY PRN Acid Reflux 01/29/25 01/29/25 Unknown History release Assessment and Plan Assessment Anesthesia Assessment: Chart Reviewed Final Anesthetic Review Family History of Problems with Anesthesia: No History of Problems with Anesthesia: No Documented by User: Paty Miguel MD 01/29/25 12:38 [facility] Past Medical History Medical History Constipation by delayed colonic transit Left sided sciatica CHASE (generalized anxiety disorder) Mild recurrent major depression Left breast mass Depression with anxiety Family history of colon cancer Seasonal allergic rhinitis due to pollen Hypovitaminosis D GERD (gastroesophageal reflux disease) Family History Family History Father Hypercholesteremia Mother Hypertension Maternal Grandmother Hypertension CAD (coronary artery disease) Maternal Grandfather No problems noted. Maternal Aunt Breast cancer Diabetes Son No problems noted. Paternal Grandfather No problems noted. Paternal Grandmother No problems noted. Maternal Uncle Colon cancer, Onset Age: 60 Unknown Colon cancer, Onset Age: 42 Surgical History Surgical History Hx of colonoscopy History of esophagogastroduodenoscopy (EGD) H/O cervical polypectomy H/O lithotripsy Social History Social History Housing: Apartment Alcohol intake: current Alcohol intake frequency: holidays/special occasions only Alcohol type: hard liquor Patient Tobacco Use Status: Never used Tobacco e-Cigarette/Vaping Use: Never Used Second Hand Smoke Exposure: No Use of substances other than those prescribed or required for medical reasons: No Are you DNR?: No Advance Directives: No Advance Directives Information Provided: Yes service: No Current occupational status: unemployed Cognitive needs: No Hearing needs: No Vision needs: No Meds Allergies Allergy/AdvReac Type Severity Reaction Status Date / Time fenofibrate AdvReac Mild hair loss Verified 01/29/25 12:05 Home Medications ?Medication ?Instructions ?Recorded ?Confirmed ?Last Taken ?Type fluticasone propionate 50 1 spray intranasal DAILY PRN 11/17/19 01/29/25 Unknown History mcg/actuation nasal Congestion spray,suspension (Flonase Allergy Relief) docusate sodium 100 mg capsule 100 mg PO BEDTIME PRN Constipation 01/29/25 01/29/25 Unknown History methylcellulose (laxative) 500 mg 500 mg PO DAILY PRN Constipation 01/29/25 01/29/25 Unknown History tablet (Citrucel) norethindrone acetate 5 mg tablet 5 mg PO DAILY 01/29/25 01/29/25 Unknown History omeprazole 20 mg capsule,delayed 20 mg PO DAILY PRN Acid Reflux 01/29/25 01/29/25 Unknown History release Exam Airway Mallampati Class: II TM Dist: >3cm Neck ROM: Full Heart: rrr Lungs: cta Assessment and Plan Assessment Anesthesia Assessment: Anesthesia Plan Discussed Final Anesthetic Review NPO: Yes ASA Class: II Final Preanesthetic Review: No Changes in Pt Med Stat, Meds/Allgs Chart Reviewed and Consent Obtained/Reviewed Patient Risk: Low Procedure Risk: Low Anesthetic Plan Anesthetic Plan: MAC: Disposition: Standard PACU
[2025-01-29 11:44] VITALS: BMI 31.1
[2025-01-29 11:48] VITALS: BP 111/52; PULSE 73; RESP 14; TEMP 36.5; O2SAT 99
[2025-01-29] MEDS: Lactated Ringers 1,000 ML 100 ML IVCONT (12:03)
--- NOTE | 2025-01-29 12:15 | MHC.SHP ---
Pre-Procedural Eval Section A - 24 Hr Update-Section A only Date of Service: 01/29/25 The patient is an INPATIENT: No The patient has been examined within 24 hours of the surgical procedure. The History & Physical has been completed within 30 days and I have reviewed it.: No Section B - Complete if H&P > 30 days Chief Complaint: screening Relevant Family History (Specify if Yes): No Relevant Social History: None Present Medications: see Short Stay Collaborative assessment Medical History: Significant History (Depression with anxiety Family history of colon cancer CHASE (generalized anxiety disorder) GERD (gastroesophageal reflux disease) Hypovitaminosis D Left breast mass Left sided sciatica Mild recurrent major depression Seasonal allergic rhinitis due to pollen) History of Previous Operations: Relevant previous surgery/procedure and date(s) (H/O cervical polypectomy H/O lithotripsy History of esophagogastroduodenoscopy (EGD) Hx of colonoscopy) Allergies: Allergies Allergy/AdvReac Type Severity Reaction Status Date / Time fenofibrate AdvReac Mild hair loss Verified 01/29/25 12:05 Review of Systems Sugical H&P ROS: Negative: Constitution, Cardiovascular, Respiratory and Gastrointestinal Exam Surgical H&P Exam: Normal: Heart, Normal: Lungs, Normal: Extremities and Normal: Abdomen Plan Diagnosis/Plan: Unchanged I have reviewed the history and physical and performed a pertinent physical examination on my patient. No changes have occurred unless specified. Time Spent With Patient Time: Total time managing care of this patient today ____ minutes.
--- NOTE | 2025-01-29 13:24 | P.OPN-COLO_ITS ---
Colonoscopy Operative Note Operative Note Date of Service: 01/29/25 Narrative: COLONOSCOPY TILL CECUM WITH BIOPSIES AND SNARE POLYPECTOMY Pre-op diagnosis: Surveillance for colon polyps. Post-op diagnosis:? Colon polyps, Diverticulosis, hemorrhoids Endoscopist:? Nadia Eduardo MD Anesthesia:?MAC Consent: Indications for the procedure and potential complications of bleeding, perforation, reaction to medications and missed diagnosis were discussed with the patient and informed consent was obtained. Instrument: Olympus PCF H 190 L variable stiffness pediatric colonoscope Monitoring: Vital signs and clinical assessment, intermittent blood pressure monitoring, continuous EKG monitoring, Pulse oximetry and Carbon Dioxide monitoring were done throughout the procedure. Please see anesthesia flowsheet. Colon withdrawl time was 16 minutes. Procedure: The patient was placed in the left lateral decubitis position and pre-procedure medications were administered. After a digital rectal examination of the ano-rectum, the video colonoscope was inserted into the rectum and advanced through the colon to the cecum. The colonoscope was slowly withdrawn in a retrograde panoramic fashion and the colon mucosa was carefully examined including a retroflexed view of the rectum. Findings and interventions are described below. Procedure Difficulty: without difficulty Findings: Terminal Ileum: Not evaluated Cecum: A 2-3 mm sessile polyp - removed with a cold biopsy Ascending Colon: A 4-5 mm sessile polyp in mid AC - removed with a cold snare. Moderate diverticulosis scattered throughout the entire colon Transverse Colon: Moderate diverticulosis scattered throughout the entire colon Descending Colon: Moderate diverticulosis scattered throughout the entire colon Sigmoid Colon: A 7-8 mm sessile polyp - removed with a cold snare. Severe diverticulosis with luminal narrowing Rectum: Normal Ano-rectum: Normal Colon preparation: Excellent, after some irrigation. Procious Bowel Preparation Scale Right colon; 3 Transverse colon: 3 Left colon; 3 (0 = Unprepared colon segment with mucosa not seen due to solid stool that cannot be cleared. 1 = Portion of mucosa of the colon segment seen, but other areas of the colon segment not well seen due to staining, residual stool and/or opaque liquid. 2 = Minor amount of residual staining, small fragments of stool and/or opaque liquid, but mucosa of colon segment seen well. 3 = Entire mucosa of colon segment seen well with no residual staining, small fragments of stool or opaque liquid) Impression and Post Procedure Diagnosis: Colonoscopy Findings: Three small polyps were removed Moderate diverticulosis seen in the entire colon Plan: I will send a letter with biopsy results. Repeat Colonoscopy in 5 years if polyps are adenomatous and due to history of colon polyps. Above findings were reviewed with the patient and relevant handouts were given and the discharge area. BIOPSIES SHOWED: A. Colon, cecal polyp: Tubular adenoma; negative for high-grade dysplasia and carcinoma. B. Colon, ascending, polyp: Colonic mucosa with no specific change, and fecal material; no adenomatous dysplasia seen. C. Colon, sigmoid, polyp: Tubular adenoma; negative for high-grade dysplasia and carcinoma Letter sent with biopsy results. Patient was placed on the colonoscopy recall list for repeat colonoscopy in 5 years.
[2025-01-29 13:26] VITALS: BP 94/48; PULSE 75; RESP 17; TEMP 36.1; O2SAT 97
[2025-01-29 13:39] VITALS: BP 99/63; PULSE 82; RESP 17; TEMP 36.1; O2SAT 97
== END 2025-01-29 14:08 | disposition home or self-care (01) ==
PROVIDERS: PCP Internal Medicine; Visit Provider Internal Medicine Gastroenterology
PROC: 0DJD8ZZ Inspection of Lower Intestinal Tract, Via Natural or Artificial Opening Endoscopic (ICD-10-PCS; CPT 45378; principal; 2025-01-29 13:20)
DX: Z12.11 Encounter for screening for malignant neoplasm of colon (principal); K57.30 Diverticulosis of large intestine without perforation or abscess without bleeding; K64.8 Other hemorrhoids; D12.0 Benign neoplasm of cecum; D12.5 Benign neoplasm of sigmoid colon; K63.5 Polyp of colon
CPT/HCPCS: 45380; 45385; 88305; J2003; J2704

== ENCOUNTER → 2025-01-29 11:32 | Outpatient (BNV) | payer OTHER, SELFPAY | PROVIDERS: PCP Internal Medicine; Visit Provider Internal Medicine Gastroenterology | DX: Z12.11 Encounter for screening for malignant neoplasm of colon (principal); D12.0 Benign neoplasm of cecum; D12.2 Benign neoplasm of ascending colon; D12.5 Benign neoplasm of sigmoid colon; K57.90 Diverticulosis of intestine, part unspecified, without perforation or abscess without bleeding | CPT/HCPCS: 45380; 45385 ==